=== PATIENT | male | born 1945 | race Caucasian/White ===

== ENCOUNTER → 2017-09-04 | Outpatient (CLI) | payer MEDICARE, OTHER ==
[2017-09-04 11:22] LABS: ALANINE AMINOTRANSFERASE 31 U/L (21-72); ALBUMIN 3.6 g/dL (3.5-5.0); ALKALINE PHOSPHATASE 90 U/L (38-126); ASPARTATE AMINO TRANSFERASE 22 U/L (17-59); BILIRUBIN,DIRECT 0.3 mg/dL (0.0-0.4); BILIRUBIN,TOTAL 0.6 mg/dL (0.2-1.3); TOTAL PROTEIN 5.9 g/dL (6.3-8.2)
== END ==
LOC: OD 09:33
PROVIDERS: ATTEND Specialist
DX: E78.4 Other hyperlipidemia (principal); I25.10 Atherosclerotic heart disease of native coronary artery without angina pectoris; I45.19 Other right bundle-branch block; I12.9 Hypertensive chronic kidney disease with stage 1 through stage 4 chronic kidney disease, or unspecified chronic kidney disease; J44.9 Chronic obstructive pulmonary disease, unspecified; N18.3 Chronic kidney disease, stage 3 (moderate); R94.31 Abnormal electrocardiogram [ECG] [EKG]; Z95.1 Presence of aortocoronary bypass graft; Z79.899 Other long term (current) drug therapy
CPT/HCPCS: 36415; 80076; 83036

== ENCOUNTER → 2017-09-09 | Outpatient (CLI) | payer MEDICARE, OTHER ==
[2017-09-09 12:05] LABS: CHOLESTEROL 147.07 mg/dL (0-200); TRIGLYCERIDES 102 mg/dL (<150)
[2017-09-09 12:15] LABS: DIRECT LDL 57 mg/dL (<100)
== END ==
LOC: OD 09:42
PROVIDERS: ATTEND Specialist
DX: E78.4 Other hyperlipidemia (principal); I12.9 Hypertensive chronic kidney disease with stage 1 through stage 4 chronic kidney disease, or unspecified chronic kidney disease; N18.3 Chronic kidney disease, stage 3 (moderate); E08.22 Diabetes mellitus due to underlying condition with diabetic chronic kidney disease; I25.10 Atherosclerotic heart disease of native coronary artery without angina pectoris; I45.19 Other right bundle-branch block; J44.9 Chronic obstructive pulmonary disease, unspecified; R94.31 Abnormal electrocardiogram [ECG] [EKG]; Z95.1 Presence of aortocoronary bypass graft; Z79.899 Other long term (current) drug therapy
CPT/HCPCS: 36415; 80061

== ENCOUNTER 2018-02-25 19:31 | Inpatient (IN) | payer MEDICARE, OTHER ==
[2018-02-25] MEDS ORDERED: NORMAL SALINE 1000 ML 1,000 ML IV ONE (20:33)
--- NOTE | 2018-02-25 20:36 | ER Document Report ---
ED Medical Screen (RME) - General Chief Complaint: High Blood Sugar Stated Complaint: ELEVATED BLOOD SUGAR Time Seen by Provider: 02/25/18 20:27 Notes: RAPID MEDICAL EVALUATION DISCLOSURE I have seen this patient as part of a Rapid Medical Evaluation and, if applicable, placed any initially appropriate orders. The patient will be seen and fully evaluated, including a full history and physical exam, by a provider ( in Main ED or Fast Track) when a room becomes available. 72-year-old male PMH HTN COPD diabetes sent here by his PCP for generalized weakness ongoing for the past 1 week. Patient has been feeling weak all over and lightheaded and states he has also been irritable. Patient denies any increased shortness of breath different from his baseline shortness of breath. He does not have any cough fevers chills vomiting diarrhea dysuria chest pain shortness of breath. His blood sugar today was found to be high 200s at home when the family decided to check his blood sugar "because what could it hurt". They deny he is a diabetic but do report that he takes Januvia prescribed by his PCP. He does not check his blood sugars daily. EXAM Diaphoretic CTAB RRR TRAVEL OUTSIDE OF THE [place] IN LAST 30 DAYS: No - Related Data Allergies/Adverse Reactions: Sulfa (Sulfonamide Antibiotics) Allergy (Verified 02/25/18 19:31) eye red Past Medical History - Social History Frequency of alcohol use: Rare - Past Medical History Cardiac Medical History: Reports: Hx Heart Attack - 1997, Hx Hypertension Pulmonary Medical History: Denies: Hx Asthma Neurological Medical History: Denies: Hx Cerebrovascular Accident, Hx Seizures Renal/ Medical History: Denies: Hx Peritoneal Dialysis GI Medical History: Denies: Hx Hepatitis, Hx Hiatal Hernia, Hx Ulcer Infectious Medical History: Denies: Hx Hepatitis Past Surgical History: Reports: Hx Open Heart Surgery. Denies: Hx Pacemaker Physical Exam - Vital signs Vitals: Temp Pulse Resp BP Pulse Ox 99.1 F 93 24 H 92/54 L 79 L 02/25/18 19:37 02/25/18 19:37 02/25/18 19:37 02/25/18 19:37 02/25/18 19:37 Course - Vital Signs Vital signs: Temp Pulse Resp BP Pulse Ox 99.1 F 86 24 H 92/54 L 97 02/25/18 19:37 02/25/18 19:43 02/25/18 19:37 02/25/18 19:37 02/25/18 19:43 Doctor's Discharge - Discharge Referrals: JACKLYN CERDA MD [Primary Care Provider] - Follow up as needed
[2018-02-25 20:59] LABS: ABSOLUTE EOSINOPHILS # (AUTO) 0.1 10^3/uL (0.0-0.6); ABSOLUTE LYMPHOCYTES (AUTO) 0.8 10^3/uL (0.5-4.7); ABSOLUTE MONOCYTES (AUTO) 0.4 10^3/uL (0.1-1.4); ABSOLUTE NEUT (AUTO) 3.4 10^3/uL (1.7-8.2); BASOPHILS % (AUTO) 0.4 % (0-2); EOSINOPHILS % (AUTO) 2.9 % (0-6); HEMATOCRIT 22.8 % (37.9-51.0); LYMPHOCYTES % (AUTO) 16.1 % (13-45); MEAN CORPUSCULAR HEMOGLOBIN 28.4 pg (27.0-33.4); MEAN CORPUSCULAR HGB CONC 32.2 g/dL (32.0-36.0); MEAN CORPUSCULAR VOLUME 88 fl (80-97); MONOCYTES % (AUTO) 7.7 % (3-13); PLATELET COUNT 177 10^3/uL (150-450); RED BLOOD COUNT 2.59 10^6/uL (4.35-5.55); RED CELL DISTRIBUTION WIDTH 17.6 % (11.5-14.0); SEGMENTED NEUTROPHILS % (AUTO) 72.9 % (42-78); TOTAL CELLS COUNTED % (AUTO) 100 %; WHITE BLOOD COUNT 4.7 10^3/uL (4.0-10.5)
[2018-02-25 21:03] LABS: ALANINE AMINOTRANSFERASE 35 U/L (21-72); ALBUMIN 3.3 g/dL (3.5-5.0); ALKALINE PHOSPHATASE 75 U/L (38-126); ASPARTATE AMINO TRANSFERASE 48 U/L (17-59); BILIRUBIN,DIRECT 0.4 mg/dL (0.0-0.4); BILIRUBIN,TOTAL 0.5 mg/dL (0.2-1.3); BLOOD UREA NITROGEN 35 mg/dL (7-20); CALCIUM 10.2 mg/dL (8.4-10.2); CHLORIDE 100 mmol/L (98-107); GLUCOSE 176 mg/dL (75-110); POTASSIUM 4.2 mmol/L (3.6-5.0); SODIUM 145.6 mmol/L (137-145); TOTAL PROTEIN 5.6 g/dL (6.3-8.2)
[2018-02-25 21:20] LABS: ANION GAP 5 (5-19)
[2018-02-25 21:24] LABS: CARBON DIOXIDE 41 mmol/L (22-30)
[2018-02-25 21:33] LABS: HEMOGLOBIN 7.3 g/dL (13.5-17.0)
[2018-02-25 21:34] LABS: VENOUS BLOOD BASE EXCESS 7.4 mmol/L; VENOUS BLOOD HCO3 36.7 mmol/L (20-32); VENOUS BLOOD PH 7.26 (7.30-7.42)
[2018-02-25 21:37] LABS: VENOUS BLOOD PCO2 82.8 mmHg (35-63)
--- NOTE | 2018-02-25 21:47 | RADIOLOGY REPORT (SQ) ---
EXAM DESCRIPTION: CHEST 2 VIEWS COMPLETED DATE/TIME: 02/25/2018 8:46 pm REASON FOR STUDY: eval pneumonia COMPARISON: 04/17/2013 EXAM PARAMETERS: NUMBER OF VIEWS: two views TECHNIQUE: Digital Frontal and Lateral radiographic views of the chest acquired. RADIATION DOSE: NA LIMITATIONS: none FINDINGS: LUNGS AND PLEURA: To pleural masses are present in the right upper hemithorax. Small righ t pleural effusion is present. The lungs are hyperexpanded. Chronic interstitial changes are presen t. MEDIASTINUM AND HILAR STRUCTURES: No masses or contour abnormalities. HEART AND VASCULAR STRUCTURES: Heart normal size. No evidence for failure. BONES: No bone erosion is seen in the upper right ribs. HARDWARE: Sternotomy wires. Surgical clips. Graft markers. OTHER: No other significant finding. IMPRESSION: Right upper hemithorax pleural masses. Small right pleural effusion. TECHNICAL DOCUMENTATION: JOB ID: [id number] [employer]- All Rights Reserved Reading location - IP/workstation name: [email or web address]
[2018-02-25] MEDS ORDERED: NORMAL SALINE 250 ML IV PRN ×2 (21:49)
--- NOTE | 2018-02-25 22:13 | ER Document Report ---
ED General - General Chief Complaint: High Blood Sugar Stated Complaint: ELEVATED BLOOD SUGAR Time Seen by Provider: 02/25/18 20:27 Notes: Patient is a 72-year-old male that comes emergency department for chief complaint of worsening weakness for the past week. He states he has intermittently worse shortness of breath than usual but at the moment he feels like it is at his baseline. He denies chest pain, dizziness, nausea or vomiting , fever or chills. He states he is eating and drinking normally. Past medical history includes COPD on 3 L nasal cannula at all times, hypertension, [place], type 2 diabetes, and left nephrectomy. He states he also takes iron. Denies blood in his stool. TRAVEL OUTSIDE OF THE [place] IN LAST 30 DAYS: No - Related Data Allergies/Adverse Reactions: Sulfa (Sulfonamide Antibiotics) Allergy (Verified 02/25/18 19:31) eye red Past Medical History - General Information source: Patient - Social History Smoking Status: Former Smoker Frequency of alcohol use: Rare Lives with: Family Family History: Reviewed & Not Pertinent Patient has suicidal ideation: No Patient has homicidal ideation: No - Past Medical History Cardiac Medical History: Reports: Hx Heart Attack - 1997, Hx Hypertension Pulmonary Medical History: Denies: Hx Asthma Neurological Medical History: Denies: Hx Cerebrovascular Accident, Hx Seizures Renal/ Medical History: Denies: Hx Peritoneal Dialysis GI Medical History: Denies: Hx Hepatitis, Hx Hiatal Hernia, Hx Ulcer Infectious Medical History: Denies: Hx Hepatitis Past Surgical History: Reports: Hx Open Heart Surgery. Denies: Hx Pacemaker Review of Systems - Review of Systems Constitutional: See HPI EENT: No symptoms reported Cardiovascular: No symptoms reported Respiratory: See HPI Gastrointestinal: No symptoms reported Genitourinary: No symptoms reported Male Genitourinary: No symptoms reported Musculoskeletal: No symptoms reported Skin: No symptoms reported Hematologic/Lymphatic: No symptoms reported Neurological/Psychological: No symptoms reported Physical Exam - Vital signs Vitals: Temp Pulse Resp BP Pulse Ox 99.1 F 93 24 H 92/54 L 79 L 02/25/18 19:37 02/25/18 19:37 02/25/18 19:37 02/25/18 19:37 02/25/18 19:37 - Notes Notes: GENERAL: Alert, interacts well. No acute distress. Frail in appearance. HEAD: Normocephalic, atraumatic. EYES: Pupils equal, round, and reactive to light. Extraocular movements intact. ENT: Oral mucosa moist, tongue midline. NECK: Full range of motion. Supple. Trachea midline. LUNGS: Decreased breath sounds bilaterally, no wheezes, rales, rhonchi noted. HEART: Regular rate and rhythm. No murmur ABDOMEN: Soft, non-tender. Non-distended. Bowel sounds present in all 4 quadrants. RECTAL: Black stools noted, no active bleeding, unremarkable rectal exam otherwise. EXTREMITIES: Moves all 4 extremities spontaneously. No edema, normal radial and dorsalis pedis pulses bilaterally. No cyanosis. BACK: no cervical, thoracic, lumbar midline tenderness. No saddle anesthesia, normal distal neurovascular exam. NEUROLOGICAL: Alert and oriented x3. Normal speech. [cranial nerves II through XII grossly intact]. PSYCH: Mildly irritable. SKIN: Skin is slightly pale. Course - Re-evaluation Re-evalutation: EKG sinus rhythm, multiple PACs, right bundle branch block, no T-wave inversions or ST segment changes in consecutive leads. Patient denying chest pain. He denies any current symptoms except for intermittent shortness of breath. Patient with mild tachypnea on my evaluation, decreased breath sounds bilaterally but is not in any severe respiratory distress. CBC shows low hemoglobin at 7.3. Previous hemoglobin was 11 although this was years ago. Performed rectal exam and this shows black stools, Hemoccult positive. Starting Protonix, type and screen performed, will transfuse. Venous blood gas shows hypercarbia which is significant with acidosis. Suspect this is because of patient's severe COPD and new anemia. Placed on BiPAP. Patient was anxious initially, provided with 0.5 mg of Ativan, after this he tolerated it well. No pneumonia on chest x-ray. No vascular congestion. Discussed with Dr. Strong. Spoke with patient and family, will discuss with hospitalist for admission. Spoke with Dr. Alonzo, internal medicine, recommended I speak to gastroenterology employment educational coord with plans to admit to ICU. 02/25/18 23:[address] Mai, he states that he will consult on the patient and see the patient in the morning. Spoke with Dr. Alonzo again, patient will be admitted to the ICU. - Vital Signs Vital signs: Temp Pulse Resp BP Pulse Ox 97.3 F 76 24 H 100/45 L 99 02/26/18 03:51 02/26/18 03:41 02/26/18 03:41 02/26/18 03:41 02/26/18 03:41 - Laboratory Result Diagrams: 02/26/18 05:35 02/26/18 05:35 Laboratory results interpreted by me: 02/25/18 02/25/18 02/25/18 20:25 20:30 20:30 RBC 2.59 L Hgb 7.3 L Hct 22.8 L RDW 17.6 H VBG pH VBG pCO2 VBG HCO3 Sodium 145.6 H Carbon Dioxide 41 H* BUN 35 H Creatinine 1.63 H Est GFR ( Amer) 50 L Est GFR (Non-Af Amer) 42 L Glucose 176 H POC Glucose 193 H Total Protein 5.6 L Albumin 3.3 L Urine Urobilinogen Crossmatch 02/25/18 02/25/18 02/25/18 21:20 21:50 22:43 RBC Hgb Hct RDW VBG pH 7.26 L VBG pCO2 82.8 H* VBG HCO3 36.7 H Sodium Carbon Dioxide BUN Creatinine Est GFR ( Amer) Est GFR (Non-Af Amer) Glucose POC Glucose Total Protein Albumin Urine Urobilinogen 4.0 H Crossmatch See Detail Critical Care Note - Critical Care Note Total time excluding time spent on procedures (mins): 35 - Symptomatic anemia, respiratory acidosis Comments: Critical care time spent obtaining history from patient, discussions with consultants, development of treatment plan with patient, evaluation of patient' s response to treatment, examination of patient, ordering and performing treatments and interventions, ordering and review of laboratory studies, re- evaluation of patient's condition, ordering and review of radiographic studies and review of old charts Discharge - Discharge Clinical Impression: Upper GI bleed, Symptomatic anemia, Shortness of breath, Acute respiratory failure with hypoxia and hypercarbia Condition: Serious Disposition: ADMITTED INPATIENT Admitting Provider: Hospitalist Unit Admitted: ICU
[2018-02-25] MEDS ORDERED: PANTOPRAZOLE SODIUM 40 MG VIAL IV ONE (22:31)
[2018-02-25] MEDS ORDERED: PANTOPRAZOLE SODIUM 40 MG VIAL IV PRN (22:32)
[2018-02-25] MEDS ORDERED: LORAZEPAM INJ 2 MG/1 ML VIAL IV ONE (22:36)
[2018-02-25] MEDS ORDERED: IPRATROPIUM/ALBUTEROL 0.5-2.5 MG/3 ML AMPUL NEB PRN (23:03)
[2018-02-25 23:05] LABS: APPEARANCE,URINE CLEAR; BILIRUBIN,URINE NEGATIVE (NEGATIVE); COLOR,URINE YELLOW; GLUCOSE, URINE NEGATIVE (NEGATIVE); KETONES,URINE NEGATIVE (NEGATIVE); LEUKOCYTE ESTERASE,URINE NEGATIVE (NEGATIVE); NITRITE,URINE NEGATIVE (NEGATIVE); PROTEIN,URINE NEGATIVE (NEGATIVE); URINE SPECIFIC GRAVITY 1.017
[2018-02-25] MEDS ORDERED: PHYTONADIONE INJ 10 MG/1 ML AMPULE SUBCUT ONE (23:05)
[2018-02-25 23:22] LABS: INTERNATIONAL RATION (INR) 0.94; PARTIAL THROMBOPLASTIN TIME 30.1 SEC (23.5-35.8)
[2018-02-25] MEDS: NORMAL SALINE 100 ML with PANTOPRAZOLE SODIUM 80 MG IV PRN ×2 (23:45)
[2018-02-26] MEDS: IPRATROPIUM/ALBUTEROL 0.5-2.5 MG/3 ML AMPUL NEB SCH ×4 (01:53→21:23)
[2018-02-26 05:46] LABS: ABSOLUTE EOSINOPHILS # (AUTO) 0.2 10^3/uL (0.0-0.6); ABSOLUTE LYMPHOCYTES (AUTO) 0.8 10^3/uL (0.5-4.7); ABSOLUTE MONOCYTES (AUTO) 0.3 10^3/uL (0.1-1.4); ABSOLUTE NEUT (AUTO) 3.6 10^3/uL (1.7-8.2); ABSOLUTE RETICS # 0.055 10^6/uL (0.028-0.122); BASOPHILS % (AUTO) 0.5 % (0-2); EOSINOPHILS % (AUTO) 3.7 % (0-6); HEMOGLOBIN 8.3 g/dL (13.5-17.0); LYMPHOCYTES % (AUTO) 16.3 % (13-45); MEAN CORPUSCULAR HGB CONC 33.4 g/dL (32.0-36.0); MEAN CORPUSCULAR VOLUME 87 fl (80-97); PLATELET COUNT 150 10^3/uL (150-450); RED BLOOD COUNT 2.87 10^6/uL (4.35-5.55); RED CELL DISTRIBUTION WIDTH 16.5 % (11.5-14.0); RETICULOCYTE COUNT (AUTO) 1.92 % (0.66-2.85); SEGMENTED NEUTROPHILS % (AUTO) 72.5 % (42-78); TOTAL CELLS COUNTED % (AUTO) 100 %; WHITE BLOOD COUNT 4.9 10^3/uL (4.0-10.5)
[2018-02-26 05:55] LABS: BLOOD UREA NITROGEN 32 mg/dL (7-20); GLUCOSE 93 mg/dL (75-110); IRON(TIBC) 77.7 ug/dL (49-181); POTASSIUM 3.9 mmol/L (3.6-5.0)
[2018-02-26 06:01] LABS: ANION GAP 5 (5-19); CARBON DIOXIDE 39 mmol/L (22-30); CHLORIDE 103 mmol/L (98-107); SODIUM 146.7 mmol/L (137-145)
--- NOTE | 2018-02-26 06:07 | PDOC H&P ---
History of Present Illness Admission Date/PCP: 02/25/18 23:14 MICA MORALES MD Patient complains of: Fatigue History of Present Illness: SHARI MCKEON is a 72 year old male with a past medical history of coronary artery disease status post bypass graft in the , diabetes, hypertension, stage II chronic kidney disease, oxygen dependent COPD and dyslipidemia. Patient presents with 2 weeks of fatigue and uncontrolled hyperglycemia. In the emergency room is found to have new anemia with a hemoglobin of 7.3 and heme positive stools. He is started on IV Protonix, ordered 2 units of packed red blood cells, BiPAP and referred to the hospitalist for admission. He denies nausea or vomiting, abdominal pain, dark colored stools, previous episode or previous colonoscopy. Past Medical History Cardiac Medical History: Reports: Coronary Artery Disease, Myocardial Infarction - 1997, Hypertension Pulmonary Medical History: Reports: Chronic Obstructive Pulmonary Disease (COPD) Denies: Asthma Neurological Medical History: Denies: Seizures Renal/ Medical History: Reports: Chronic Kidney Disease, Other - Status post left nephrectomy GI Medical History: Denies: Hepatitis, Hiatal Hernia Hematology: Denies: Anemia, Sickle Cell Disease Past Surgical History Past Surgical History: Reports: Coronary Artery Bypass Graft Denies: Pacemaker Social History Smoking Status: Former Smoker Frequency of Alcohol Use: None Hx Recreational Drug Use: No Drugs: None Hx Prescription Drug Abuse: No - Advance Directive Resuscitation Status: Full Code Family History Family History: Other - Unknown Parental Family History Reviewed: Yes Children Family History Reviewed: Yes Sibling(s) Family History Reviewed.: Yes Medication/Allergy Home Medications: Amlodipine Besylate [Norvasc 2.5 mg Tablet] 2.5 mg PO DAILY 06/10/15 Aspirin [Aspirin EC] 81 mg PO DAILY 06/10/15 Atorvastatin Calcium [Lipitor 40 mg Tablet] 40 mg PO QHS 06/10/15 Brinzolamide [Azopt] 1 drop OP TID 06/10/15 Nitroglycerin [Nitrostat] 0.4 mg SL PRN PRN 06/10/15 Sitagliptin Phosphate [Januvia 50 mg Tablet] 100 mg PO DAILY 06/10/15 Travoprost (Benzalkonium) [Travatan 0.004% Eye Drop] 1 drop OP ASDIR PRN Valsartan [Diovan] 320 mg PO DAILY 06/10/15 Allergies/Adverse Reactions: Sulfa (Sulfonamide Antibiotics) Allergy (Verified 02/25/18 19:31) eye red Review of Systems Constitutional: PRESENT: as per HPI, anorexia, fatigue, weight loss. ABSENT: chills Eyes: ABSENT: visual disturbances Ears: ABSENT: hearing changes Cardiovascular: ABSENT: chest pain, dyspnea on exertion, edema, orthropnea, palpitations Respiratory: ABSENT: cough, hemoptysis Gastrointestinal: ABSENT: abdominal pain, constipation, diarrhea, hematemesis, hematochezia, nausea, vomiting Genitourinary: ABSENT: dysuria, hematuria Musculoskeletal: ABSENT: joint swelling Integumentary: ABSENT: rash, wounds Neurological: ABSENT: abnormal gait, abnormal speech, confusion, dizziness, focal weakness, syncope Psychiatric: ABSENT: anxiety, depression, homidical ideation, suicidal ideation Endocrine: ABSENT: cold intolerance, heat intolerance, polydipsia, polyuria Hematologic/Lymphatic: ABSENT: easy bleeding, easy bruising Physical Exam Vital Signs: Temp Pulse Resp BP Pulse Ox 97.3 F 76 24 H 100/45 L 99 02/26/18 03:51 02/26/18 03:41 02/26/18 03:41 02/26/18 03:41 02/26/18 03:41 Intake & Output 02/24/18 02/25/18 02/26/18 11:59 11:59 11:59 Intake Total 600 Output Total 0 Balance 600 Weight 85.6 kg General appearance: PRESENT: no acute distress, cooperative, mild distress, well -developed, well-nourished, other - Chronically ill-appearing with temporal wasting. ABSENT: disheveled Head exam: PRESENT: atraumatic, normocephalic Eye exam: PRESENT: conjunctiva pale, EOMI, PERRLA. ABSENT: scleral icterus Ear exam: PRESENT: normal external ear exam Mouth exam: PRESENT: moist, tongue midline Neck exam: ABSENT: carotid bruit, JVD, lymphadenopathy, thyromegaly Respiratory exam: PRESENT: clear to auscultation randa, crackles, prolonged expiratory phas, retraction, tachypnea. ABSENT: rales, rhonchi, wheezes Cardiovascular exam: PRESENT: RRR. ABSENT: diastolic murmur, rubs, systolic murmur Pulses: PRESENT: normal dorsalis pedis pul Vascular exam: PRESENT: normal capillary refill GI/Abdominal exam: PRESENT: normal bowel sounds, soft. ABSENT: distended, guarding, mass, organolmegaly, rebound, tenderness Rectal exam: PRESENT: deferred Extremities exam: PRESENT: full ROM, +1 edema. ABSENT: calf tenderness, clubbing, pedal edema Musculoskeletal exam: PRESENT: full ROM. ABSENT: deformity, dislocation Neurological exam: PRESENT: alert, awake, oriented to person, oriented to place , oriented to time, oriented to situation, CN II-XII grossly intact. ABSENT: motor sensory deficit Psychiatric exam: PRESENT: appropriate affect, normal mood. ABSENT: homicidal ideation, suicidal ideation Skin exam: PRESENT: dry, intact, warm. ABSENT: cyanosis, rash Results Impressions: Chest X-Ray 02/25/18 20:32 IMPRESSION: Right upper hemithorax pleural masses. Small right pleural effusion. Assessment & Plan - Diagnosis (1) GI bleed Is this a current diagnosis for this admission?: Yes Plan: Unclear source history of iron deficiency, without colonoscopy suggests GI bleed. Pending evaluation empiric top of the inhibitor ordered, 2 units of packed red blood cells, follow-up CBC, INR and GI consult (2) Acute respiratory failure with hypoxia and hypercarbia Is this a current diagnosis for this admission?: Yes Plan: Acute on chronic respiratory failure exacerbated by anemia. Albuterol and Atrovent, supplemental oxygen and BiPAP support (3) Symptomatic anemia Is this a current diagnosis for this admission?: Yes Plan: Secondary to #1. 2 units of packed red blood cells ordered follow-up posttransfusion CBC - Time Time Spent: 50 to 70 Minutes - Inpatient Certification Medical Necessity: Need Close Monitoring Due to Risk of Patient Decompensation
--- NOTE | 2018-02-26 07:44 | PDOC CONSULTATION ---
Consultation Consult Date: 02/25/18 Attending physician:: KERWIN NAPOLES Consult reason:: GI bleed History of Present Illness Admission Date/PCP: 02/25/18 23:14 MICA MORALES MD History of Present Illness: SHARI MCKEON is a 72 year old male patient presented to the ED. I was called last pm. new onset anemia with heme positive stools patient does describe as dark denies any previous episodes does have to use BIPAP , denies any nausea or vomiting there is no dysphagia or odynophagia has elevated BUN and Creatinine patient in ICU, blood is being ordered patient once stabalized will need EGD to rule out source of bleeding denies any abdominal pain denies seeing any rectal bleeding Past Medical History Cardiac Medical History: Reports: Coronary Artery Disease, Myocardial Infarction - 1997, Hypertension Pulmonary Medical History: Reports: Chronic Obstructive Pulmonary Disease (COPD) Denies: Asthma Neurological Medical History: Denies: Seizures Renal/ Medical History: Reports: Chronic Kidney Disease, Other - Status post left nephrectomy GI Medical History: Denies: Hepatitis, Hiatal Hernia Hematology: Denies: Anemia, Sickle Cell Disease Past Surgical History Past Surgical History: Reports: Coronary Artery Bypass Graft Denies: Pacemaker Social History Lives with: Family Smoking Status: Former Smoker Frequency of Alcohol Use: None Hx Recreational Drug Use: No Drugs: None Hx Prescription Drug Abuse: No - Advance Directive Resuscitation Status: Full Code Family History Family History: Reviewed & Not Pertinent Parental Family History Reviewed: Yes Children Family History Reviewed: Unknown Sibling(s) Family History Reviewed.: Unknown Medication/Allergy Home Medications: Amlodipine Besylate [Norvasc 2.5 mg Tablet] 2.5 mg PO DAILY 06/10/15 Aspirin [Aspirin EC] 81 mg PO DAILY 06/10/15 Atorvastatin Calcium [Lipitor 40 mg Tablet] 40 mg PO QHS 06/10/15 Brinzolamide [Azopt] 1 drop OP TID 06/10/15 Nitroglycerin [Nitrostat] 0.4 mg SL PRN PRN 06/10/15 Sitagliptin Phosphate [Januvia 50 mg Tablet] 100 mg PO DAILY 06/10/15 Travoprost (Benzalkonium) [Travatan 0.004% Eye Drop] 1 drop OP ASDIR PRN Valsartan [Diovan] 320 mg PO DAILY 06/10/15 Allergies/Adverse Reactions: Sulfa (Sulfonamide Antibiotics) Allergy (Verified 02/25/18 19:31) eye red Review of Systems Constitutional: PRESENT: weakness. ABSENT: fever(s), headache(s), night sweats Eyes: ABSENT: visual disturbances Nose, Mouth, and Throat: ABSENT: mouth pain, sore throat Cardiovascular: ABSENT: chest pain, edema, orthropnea Respiratory: ABSENT: dyspnea, hemoptysis Gastrointestinal: ABSENT: dysphagia, hematemesis, nausea, vomiting Genitourinary: ABSENT: dysuria, hematuria Musculoskeletal: ABSENT: deformity Neurological: ABSENT: tremor(s), vertigo Endocrine: ABSENT: polydipsia, polyphagia, polyuria Hematologic/Lymphatic: ABSENT: easy bruising Physical Exam Vital Signs: Temp Pulse Resp BP Pulse Ox 97.3 F 76 12 96/45 L 97 02/26/18 03:51 02/26/18 03:41 02/26/18 06:35 02/26/18 06:31 02/26/18 06:35 Intake & Output 02/25/18 02/26/18 02/27/18 06:59 06:59 06:59 Intake Total 755 Output Total 200 Balance 555 Weight 85.6 kg General appearance: PRESENT: mild distress, well-developed, well-nourished Head exam: PRESENT: atraumatic, normocephalic Eye exam: PRESENT: EOMI, PERRLA. ABSENT: scleral icterus Mouth exam: PRESENT: moist, neck supple Throat exam: ABSENT: tonsillar exudate, tonsillogmegaly Neck exam: ABSENT: meningismus, tenderness, thyromegaly Respiratory exam: PRESENT: symmetrical, unlabored Cardiovascular exam: PRESENT: +S1, +S2 GI/Abdominal exam: PRESENT: soft. ABSENT: rebound, rigid Extremities exam: ABSENT: joint swelling Musculoskeletal exam: PRESENT: full ROM Neurological exam: PRESENT: alert, awake, oriented to time, oriented to situation, CN II-XII grossly intact Focused psych exam: ABSENT: restlessness Skin exam: PRESENT: normal color. ABSENT: mottled, pallor, petechiae, urticaria , vesicles Results Laboratory Results: 02/26/18 05:35 02/26/18 05:35 02/26/18 02/26/18 05:35 05:35 WBC 4.9 RBC 2.87 L Hgb 8.3 L Hct 25.0 L MCV 87 MCH 29.0 MCHC 33.4 RDW 16.5 H Plt Count 150 Seg Neutrophils % 72.5 Lymphocytes % 16.3 Monocytes % 7.0 Eosinophils % 3.7 Basophils % 0.5 Absolute Neutrophils 3.6 Absolute Lymphocytes 0.8 Absolute Monocytes 0.3 Absolute Eosinophils 0.2 Absolute Basophils 0.0 Retic Count (auto) 1.92 Absolute Retic 0.055 Sodium 146.7 H Potassium 3.9 Chloride 103 Carbon Dioxide 39 H Anion Gap 5 BUN 32 H Creatinine 1.51 H Est GFR ( Amer) 55 L Est GFR (Non-Af Amer) 45 L Glucose 93 Calcium 10.0 Iron 77.7 TIBC 252 % Saturation 31 Ferritin 41.20 Vitamin B12 235.0 L Folate 10.20 02/26/18 05:35 NT-Pro-B Natriuret Pep 231 Impressions: Chest X-Ray 02/25/18 20:32 IMPRESSION: Right upper hemithorax pleural masses. Small right pleural effusion. Assessment & Plan - Diagnosis (1) Upper GI bleed Is this a current diagnosis for this admission?: Yes Plan: agree with transfusion , patient admitted to the ICU continue on BIPAP will need EGD Risks, benefits and alternatives are explained to the patient in detail further recommendations to follow follow up on H/H transfuse as necessary start PPI
[2018-02-26] MEDS ORDERED: DIPHENHYDRAMINE HCL 50 MG/ML VIAL ONE (10:03)
[2018-02-26] MEDS ORDERED: NALOXONE HCL INJ/PF 0.4 MG/1 ML SDV ONE (10:03)
[2018-02-26] MEDS ORDERED: ONDANSETRON HCL INJ/PF 4 MG/2 ML SDV ONE (10:03)
[2018-02-26] MEDS ORDERED: MIDAZOLAM 2 MG/2 ML INJ ONE (10:04)
[2018-02-26] MEDS ORDERED: GLUCAGON,HUMAN RECOMB 1 MG INJ ONE (10:04)
[2018-02-26] MEDS ORDERED: EPINEPHRINE INJ 1 MG/10 ML DISP.SYRIN ONE (10:04)
[2018-02-26] MEDS ORDERED: FENTANYL CITRATE INJ/PF 100 MCG/2 ML AMPUL ONE (10:04)
[2018-02-26] MEDS ORDERED: FLUMAZENIL INJ 0.5 MG/5 ML VIAL ONE (10:04)
--- NOTE | 2018-02-26 10:30 | Progress Note ---
Provider Note Provider Note: Arrived at ICU to try and attempt procedure was informed by nursing that patient had desaturated when BIPAP was removed briefly . patient was sitting at side of bed and could not tolerate being off BIPAP at high risk for respiratory decompensation patient not intubated however since no clinical signs of active bleeding for now, will hold off on procedure he has received PRBC transfusion, and on PPI drip continue to monitor H/H will defer on EGD for now if H/H continues to decrease, then will need to be intubated for airway protection if for other reasons, he is intubated, then will perform EGD at that time. further recommendations to follow
[2018-02-26] MEDS: NORMAL SALINE 100 ML with PANTOPRAZOLE SODIUM 80 MG IV PRN ×2 (18:00)
--- NOTE | 2018-02-26 18:38 | PDOC PROGRESS REPORT ---
Subjective Progress Note for:: 02/26/18 Subjective:: No adverse events overnight. I asked him some of the details of what have been going on with him, but he was unable to provide me with much information and deferred to his . He got into a little bit of distress this morning we had put him on BiPAP for a while. Apparently when Dr. Mai tried to do the EGD he was unable to proceed because of the patient's respiratory condition. He seemed to do fine on BiPAP when he comes off he is not doing as well, while he is able to protect his airway just fine, his mental status is not back to its baseline according to his . Reason For Visit: GIB,COPD,ACUTE ON CHRONIC RESP FAILURE Physical Exam Vital Signs: Temp Pulse Resp BP Pulse Ox 98.6 F 78 14 100/52 L 98 02/26/18 18:00 02/26/18 18:00 02/26/18 18:00 02/26/18 18:00 02/26/18 18:00 Intake & Output 02/25/18 02/26/18 02/27/18 06:59 06:59 06:59 Intake Total 755 Output Total 200 435 Balance 555 -435 Weight 85.6 kg General appearance: PRESENT: disheveled, mild distress Head exam: PRESENT: atraumatic, normocephalic Respiratory exam: PRESENT: decreased breath sounds. ABSENT: rales, rhonchi, wheezes Cardiovascular exam: PRESENT: RRR. ABSENT: diastolic murmur, rubs, systolic murmur Vascular exam: PRESENT: normal capillary refill GI/Abdominal exam: PRESENT: normal bowel sounds, soft. ABSENT: distended, guarding, mass, organolmegaly, rebound, tenderness Extremities exam: ABSENT: clubbing, pedal edema Musculoskeletal exam: PRESENT: normal inspection. ABSENT: deformity Neurological exam: PRESENT: awake - Defers most questions to his , oriented to person, oriented to place Skin exam: PRESENT: dry, pallor, warm Results Laboratory Results: 02/26/18 05:35 02/26/18 05:35 02/26/18 02/26/18 05:35 05:35 WBC 4.9 RBC 2.87 L Hgb 8.3 L Hct 25.0 L MCV 87 MCH 29.0 MCHC 33.4 RDW 16.5 H Plt Count 150 Seg Neutrophils % 72.5 Lymphocytes % 16.3 Monocytes % 7.0 Eosinophils % 3.7 Basophils % 0.5 Absolute Neutrophils 3.6 Absolute Lymphocytes 0.8 Absolute Monocytes 0.3 Absolute Eosinophils 0.2 Absolute Basophils 0.0 Retic Count (auto) 1.92 Absolute Retic 0.055 Sodium 146.7 H Potassium 3.9 Chloride 103 Carbon Dioxide 39 H Anion Gap 5 BUN 32 H Creatinine 1.51 H Est GFR ( Amer) 55 L Est GFR (Non-Af Amer) 45 L Glucose 93 Calcium 10.0 Iron 77.7 TIBC 252 % Saturation 31 Ferritin 41.20 Vitamin B12 235.0 L Folate 10.20 02/26/18 05:35 NT-Pro-B Natriuret Pep 231 Impressions: Chest X-Ray 02/25/18 20:32 IMPRESSION: Right upper hemithorax pleural masses. Small right pleural effusion. Assessment & Plan - Diagnosis (1) Acute respiratory failure with hypoxia and hypercarbia Is this a current diagnosis for this admission?: Yes Plan: We will keep him on BiPAP as needed in an attempt to drive down his CO2. If he has a persistent hypoxemia will probably do a CT scan of his chest. (2) Upper GI bleed Is this a current diagnosis for this admission?: Yes Plan: Currently on Protonix drip and kept n.p.o. Gastroenterology has been consulted. They felt like it was not safe to the EGD at this time, and will come back and do the EGD when his respiratory status has improved. (3) Metabolic encephalopathy Is this a current diagnosis for this admission?: Yes Plan: Secondary to #1. As his CO2 goes down I expect this to improve. (4) Acute blood loss anemia Is this a current diagnosis for this admission?: Yes Plan: Status post 2 units packed red blood cells. We will continue to check his hemoglobin to see if he needs more blood. - Time Time Spent with patient: 35 or more minutes Total Critical Time (Minutes): 35 Medications reviewed and adjusted accordingly: Yes
[2018-02-27] MEDS: IPRATROPIUM/ALBUTEROL 0.5-2.5 MG/3 ML AMPUL NEB SCH ×4 (02:58→20:24)
[2018-02-27] MEDS: NORMAL SALINE 100 ML with PANTOPRAZOLE SODIUM 80 MG IV PRN ×2 (03:45)
[2018-02-27 06:59] LABS: ARTERIAL BLOOD BASE EXCESS 6.6 mmol/L; ARTERIAL BLOOD H2CO3 1.88 mmol/L (1.05-1.35); ARTERIAL BLOOD HCO3 33.6 mmol/L (20-26); ARTERIAL BLOOD O2 SATURATION 93.1 % (94-98); ARTERIAL BLOOD PCO2 62.5 mmHg (35-45); ARTERIAL BLOOD PH 7.35 (7.35-7.45); ARTERIAL BLOOD PO2 71.2 mmHg (80-100); ARTERIAL BLOOD TOTAL CO2 35.5 mmol/L (23-27)
[2018-02-27 07:01] LABS: ARTERIAL BLOOD FIO2 70%
[2018-02-27] MEDS ORDERED: PROPOFOL 1,000 MG/100 ML INFUS..BTL IV ONE (07:05)
[2018-02-27 07:35] LABS: ALANINE AMINOTRANSFERASE 47 U/L (21-72); ALBUMIN 3.3 g/dL (3.5-5.0); ALKALINE PHOSPHATASE 82 U/L (38-126); ANION GAP 9 (5-19); ASPARTATE AMINO TRANSFERASE 62 U/L (17-59); BILIRUBIN,DIRECT 0.5 mg/dL (0.0-0.4); BILIRUBIN,TOTAL 1.2 mg/dL (0.2-1.3); BLOOD UREA NITROGEN 23 mg/dL (7-20); CALCIUM 10.1 mg/dL (8.4-10.2); CARBON DIOXIDE 32 mmol/L (22-30); CHLORIDE 106 mmol/L (98-107); GLUCOSE 127 mg/dL (75-110); POTASSIUM 4.7 mmol/L (3.6-5.0); SODIUM 147.3 mmol/L (137-145); TOTAL PROTEIN 5.8 g/dL (6.3-8.2)
--- NOTE | 2018-02-27 07:49 | EKG REPORT ---
SEVERITY:- ABNORMAL ECG - SINUS RHYTHM MULTIPLE ATRIAL PREMATURE COMPLEXES FIRST DEGREE AV BLOCK RIGHT BUNDLE BRANCH BLOCK : Confirmed by: Sissy Sauer MD 27-Feb-2018 07:48:28
[2018-02-27 07:51] LABS: HEMATOCRIT 29.1 % (37.9-51.0); HEMOGLOBIN 9.5 g/dL (13.5-17.0); MEAN CORPUSCULAR HEMOGLOBIN 28.5 pg (27.0-33.4); MEAN CORPUSCULAR HGB CONC 32.6 g/dL (32.0-36.0); MEAN CORPUSCULAR VOLUME 88 fl (80-97); PLATELET COUNT 181 10^3/uL (150-450); RED BLOOD COUNT 3.33 10^6/uL (4.35-5.55); RED CELL DISTRIBUTION WIDTH 17.1 % (11.5-14.0); WHITE BLOOD COUNT 8.1 10^3/uL (4.0-10.5)
[2018-02-27] MEDS ORDERED: NOREPINEPHRINE BITARTRATE INJ/PF 4 MG/4 ML SDV IV ONE ×2 (07:57→18:39)
[2018-02-27] MEDS ORDERED: METHYLPREDNISOLONE INJ 125 MG/2 ML SDV IV ONE (08:00)
[2018-02-27 08:05] LABS: ABSOLUTE LYMPHOCYTES# (MANUAL) 1.5 10^3/uL (0.5-4.7); ABSOLUTE MONOCYTES # (MANUAL) 0.5 10^3/uL (0.1-1.4); ABSOLUTE NEUTROPHILS# (MANUAL) 6.1 10^3/uL (1.7-8.2); BAND NEUTROPHILS % (MANUAL) 1 % (3-5); BASOPHILS % (MANUAL) 0 % (0-2); EOSINOPHILS % (MANUAL) 1 % (0-6); LYMPHOCYTES % (MANUAL) 18 % (13-45); MONOCYTES % (MANUAL) 6 % (3-13); PLATELET COMMENT ADEQUATE; SEGMENTED NEUTROPHILS % (MAN) 74 % (42-78); TOTAL CELLS COUNTED 100; TOXIC GRANULATION SLIGHT; TOXIC VACUOLATION PRESENT
[2018-02-27 08:06] LABS: ANISOCYTOSIS 2+; OVALOCYTES 1+; POIKILOCYTOSIS 1+; POLYCHROMASIA 1+
--- NOTE | 2018-02-27 08:20 | RADIOLOGY REPORT (SQ) ---
EXAM DESCRIPTION: KUB/ABDOMEN (SINGLE VIEW) COMPLETED DATE/TIME: 02/27/2018 7:50 am REASON FOR STUDY: Intubation NGT placement COMPARISON: Two-view chest 02/25/2018 AP chest 02/27/2018 NUMBER OF VIEWS: One view. TECHNIQUE: Supine radiographic image of the abdomen acquired for nasogastric tube placement. LIMITATIONS: None. FINDINGS: Nasogastric tube tip and side port in the stomach. Compared to chest films 02/25/2018, there is now a elevation of the right hemidiaphragm and increased fluid or consolidation along the right major fissure. Findings discussed with Dr. Montes. Old sternotomy for CABG. Aortic stent graft. Normal bowel gas pattern. Pelvis not included in the field of view IMPRESSION: Nasogastric tube tip and side port in the stomach TECHNICAL DOCUMENTATION: JOB ID: [id number] [employer]- All Rights Reserved Reading location - IP/workstation name: [email or web address]
--- NOTE | 2018-02-27 08:24 | RADIOLOGY REPORT (SQ) ---
EXAM DESCRIPTION: CHEST SINGLE VIEW COMPLETED DATE/TIME: 02/27/2018 7:50 am REASON FOR STUDY: Intubation COMPARISON: Two-view chest 04/17/2013 02/25/2018 two-view chest EXAM PARAMETERS: NUMBER OF VIEWS: One view. TECHNIQUE: Single frontal radiographic view of the chest acquired. RADIATION DOSE: NA LIMITATIONS: None. FINDINGS: LUNGS AND PLEURA: Prior opacification of the right hemithorax since 02/25/2018. There is i ncrease in right pleural effusion, and decrease in aeration of the right upper and middle lobe worris ome for collapse. Findings discussed with Dr. Montes in the ICU. Left lung well inflated and clear. No left pleural effusion. No right or left pneumothorax. MEDIASTINUM AND HILAR STRUCTURES: No masses. Contour normal. HEART AND VASCULAR STRUCTURES: Post CABG. No gross cardiomegaly BONES: No acute findings. HARDWARE: Endotracheal tube tip midtrachea. Nasogastric tube tip and side port below the hemidiaphra gms. OTHER: No other significant finding. IMPRESSION: Further opacification right hemithorax compared to 02/25/2018. This is likely due to a c ombination of increasing right pleural fluid and lung collapse/consolidation. Findings discussed wit red Montes TECHNICAL DOCUMENTATION: JOB ID: [id number] [employer]- All Rights Reserved Reading location - IP/workstation name: [email or web address]
[2018-02-27 08:51] LABS: ARTERIAL BLOOD BASE EXCESS 6.9 mmol/L; ARTERIAL BLOOD H2CO3 1.88 mmol/L (1.05-1.35); ARTERIAL BLOOD HCO3 33.6 mmol/L (20-26); ARTERIAL BLOOD O2 SATURATION 97.7 % (94-98); ARTERIAL BLOOD PCO2 62.6 mmHg (35-45); ARTERIAL BLOOD PH 7.35 (7.35-7.45); ARTERIAL BLOOD TOTAL CO2 35.6 mmol/L (23-27)
[2018-02-27 08:54] LABS: ARTERIAL BLOOD FIO2 60%
[2018-02-27] MEDS: CYANOCOBALAMIN (VITAMIN B-12) INJ 1000 MCG/1 ML VIAL IM SCH (09:19)
[2018-02-27] MEDS ORDERED: MIDAZOLAM HCL 50 MG/100 ML RTUINJ ONE (09:21)
[2018-02-27] MEDS ORDERED: LIDOCAINE 1% INJ-PF (10 MG/ML) 30 ML SDV ONE (11:25)
--- NOTE | 2018-02-27 13:10 | RADIOLOGY REPORT (SQ) ---
EXAM DESCRIPTION: CHEST SINGLE VIEW COMPLETED DATE/TIME: 02/27/2018 12:44 pm REASON FOR STUDY: s/p bronchoscopy COMPARISON: 02/27/2018 EXAM PARAMETERS: NUMBER OF VIEWS: One view. TECHNIQUE: Single frontal radiographic view of the chest acquired. RADIATION DOSE: NA LIMITATIONS: None. FINDINGS: LUNGS AND PLEURA: The previously described decrease in aeration of the right upper and mid dle lobes appear improved as compared to the previous study. Residual changes are identified. Right pleural effusion appears essentially unchanged. Pleural changes are again identified in the right h emithorax. The left lung remains clear and well expanded. No pneumothorax is seen. MEDIASTINUM AND HILAR STRUCTURES: No masses. Contour normal. HEART AND VASCULAR STRUCTURES: The configuration of the heart and mediastinal structures is unchanged . BONES: No acute findings. HARDWARE: Endotracheal tube is again identified with its tip the level of the thoracic inlet. NG tub e is seen in course to the abdomen. Patient is status post median sternotomy. OTHER: No other significant finding. IMPRESSION: Interval improvement in the aeration in the right upper and middle lobes as noted above. Right pleural effusion appears essentially unchanged. Other findings as noted above TECHNICAL DOCUMENTATION: JOB ID: [id number] [employer]- All Rights Reserved Reading location - IP/workstation name: [email or web address]
[2018-02-27 13:30] LABS: FLUID APPEARANCE TURBID; FLUID COLOR RED; FLUID SOURCE LUNG; FLUID TYPE BRONCHIAL WASH; FLUID VISCOSITY SLIGHTLY VISCOUS
[2018-02-27 14:15] LABS: CREATINE KINASE MB 0.92 ng/mL (<4.55); TROPONIN I 0.012 ng/mL
[2018-02-27] MEDS ORDERED: SUCCINYLCHOLINE CHLORIDE INJ 200 MG/10 ML VIAL ONE (14:41)
--- NOTE | 2018-02-27 14:48 | Operative Report ---
Operative Report DATE OF SURGERY: 02/27/18 Operative Report: The risks benefits and alternatives of the procedure explained to the patient in detail and informed consent is obtained .A GIF Olympus video scope was inserted into the patient's mouth and hypopharynx, the esophagus is identified intubated and insufflated, the scope was then advanced through the esophagus stomach and duodenum, retroflexion maneuver is done, the esophagus stomach and first and second portions of the duodenum examined PREOPERATIVE DIAGNOSIS: Possible GI bleeding, heme positive stool POSTOPERATIVE DIAGNOSIS: No bleeding also noted. Gastric polyp noted. However is unclear if this is created by the suction with some mild residual bleeding versus a polyp that was there prior to NG tube placement. Biopsies obtained. No blood noted in the upper GI tract. No ulcers. Normal esophagus without any varices OPERATION: EGD with biopsy SURGEON: KERWIN NAPOLES ANESTHESIA: LMAC TISSUE REMOVED OR ALTERED: As noted above. COMPLICATIONS: None. ESTIMATED BLOOD LOSS: None. INTRAOPERATIVE FINDINGS: As noted above. PROCEDURE: Patient tolerated procedure well. No immediate postprocedure complications are noted. Continue current care. Keep n.p.o. Remove NG tube. Keep on Protonix drip. Wait on bronchoscopy results. Negative for GI bleeding.
[2018-02-27] MEDS: PROPOFOL 1,000 MG/100 ML INFUS..BTL IV PRN (15:36)
[2018-02-27] MEDS: METHYLPREDNISOLONE INJ 40 MG/1 ML SDV IV SCH ×2 (15:38→21:34)
[2018-02-27] MEDS: MIDAZOLAM HCL 50 MG/100 ML RTUINJ IV PRN (15:38)
--- NOTE | 2018-02-27 18:16 | PDOC PROGRESS REPORT ---
Subjective Progress Note for:: 02/27/18 Subjective:: He was apparently doing well until about 6:00 this morning when he suddenly had dyspnea. They try to help him recover with BiPAP but the decision was made to ultimately intubate him. He has since been stable on the ventilator. He had an EGD earlier which apparently did not show an upper GI source of bleeding. He also had a bronchoscopy and a biopsy of the mass was done, and it was also thought that he was probably bleeding from this mass and swallowing it and that is why his Hemoccult was positive. Reason For Visit: GIB,COPD,ACUTE ON CHRONIC RESP FAILURE Physical Exam Vital Signs: Temp Pulse Resp BP Pulse Ox 99.3 F 74 16 109/60 98 02/27/18 14:30 02/27/18 14:37 02/27/18 14:37 02/27/18 14:37 02/27/18 17:05 Intake & Output 02/26/18 02/27/18 02/28/18 06:59 06:59 06:59 Intake Total 755 801 Output Total 200 860 235 Balance 555 -860 566 Weight 85.6 kg 83.2 kg 83.2 kg General appearance: PRESENT: other - He is sedated and intubated. He has a hinds and ashen appearance about him. Respiratory exam: PRESENT: other - Very diminished sounds on the right side. ABSENT: rales, rhonchi, wheezes Cardiovascular exam: PRESENT: RRR. ABSENT: diastolic murmur, rubs, systolic murmur Vascular exam: PRESENT: normal capillary refill GI/Abdominal exam: PRESENT: normal bowel sounds, soft. ABSENT: distended, guarding, mass, organolmegaly, rebound, tenderness Extremities exam: PRESENT: pedal edema, +2 edema - Bilateral lower extremities. ABSENT: clubbing Musculoskeletal exam: PRESENT: normal inspection. ABSENT: deformity Neurological exam: PRESENT: other - Sedated, intubated Results Laboratory Results: 02/27/18 07:07 02/27/18 07:07 02/27/18 02/27/18 02/27/18 06:53 07:07 07:07 WBC 8.1 RBC 3.33 L Hgb 9.5 L Hct 29.1 L MCV 88 MCH 28.5 MCHC 32.6 RDW 17.1 H Plt Count 181 Seg Neutrophils % Not Reportable Lymphocytes % Not Reportable Monocytes % Not Reportable Eosinophils % Not Reportable Basophils % Not Reportable Absolute Neutrophils Not Reportable Absolute Lymphocytes Not Reportable Absolute Monocytes Not Reportable Absolute Eosinophils Not Reportable Absolute Basophils Not Reportable Carbonic Acid 1.88 H HCO3/H2CO3 Ratio 17:1 ABG pH 7.35 ABG pCO2 62.5 H ABG pO2 71.2 L ABG HCO3 33.6 H ABG O2 Saturation 93.1 L ABG Base Excess 6.6 FiO2 70% Sodium 147.3 H Potassium 4.7 Chloride 106 Carbon Dioxide 32 H Anion Gap 9 BUN 23 H Creatinine 1.36 H Est GFR ( Amer) > 60 Est GFR (Non-Af Amer) 51 L Glucose 127 H Calcium 10.1 Magnesium 2.2 Total Bilirubin 1.2 AST 62 H ALT 47 Alkaline Phosphatase 82 Total Protein 5.8 L Albumin 3.3 L Fluid Type Fluid Source Fluid Color Fluid Appearance Fluid Viscosity Fluid WBC Fluid RBC 02/27/18 02/27/18 08:40 12:15 WBC RBC Hgb Hct MCV MCH MCHC RDW Plt Count Seg Neutrophils % Lymphocytes % Monocytes % Eosinophils % Basophils % Absolute Neutrophils Absolute Lymphocytes Absolute Monocytes Absolute Eosinophils Absolute Basophils Carbonic Acid 1.88 H HCO3/H2CO3 Ratio 17:1 ABG pH 7.35 ABG pCO2 62.6 H ABG pO2 111.0 H ABG HCO3 33.6 H ABG O2 Saturation 97.7 ABG Base Excess 6.9 FiO2 60% Sodium Potassium Chloride Carbon Dioxide Anion Gap BUN Creatinine Est GFR ( Amer) Est GFR (Non-Af Amer) Glucose Calcium Magnesium Total Bilirubin AST ALT Alkaline Phosphatase Total Protein Albumin Fluid Type BRONCHIAL WASH Fluid Source LUNG Fluid Color RED Fluid Appearance TURBID Fluid Viscosity SLIGHTLY VISCOUS Fluid WBC 345 Fluid RBC [id number] 02/26/18 02/27/18 02/27/18 05:35 13:10 13:10 Creatine Kinase 51 L CK-MB (CK-2) 0.92 Troponin I 0.012 NT-Pro-B Natriuret Pep 231 Impressions: KUB X-Ray 02/27/18 00:00 IMPRESSION: Nasogastric tube tip and side port in the stomach Chest X-Ray 02/27/18 07:29 IMPRESSION: Further opacification right hemithorax compared to 02/25/2018. This is likely due to a combination of increasing right pleural fluid and lung collapse/consolidation. Findings discussed with Dr. Montes Assessment & Plan - Diagnosis (1) Acute respiratory failure with hypoxia and hypercarbia Is this a current diagnosis for this admission?: Yes Plan: He is now intubated. Blood gases have improved. Pulmonology been consulted. Steroids were started empirically. Given his oxygen dependent COPD and large mass on the right side, we may have a very hard time getting him extubated. (2) Upper GI bleed Is this a current diagnosis for this admission?: Yes Plan: This is been ruled out after the endoscopy today. (3) Metabolic encephalopathy Is this a current diagnosis for this admission?: Yes Plan: Due to his various medical issues. Unable to determine if this is improved because now he sedated and intubated. (4) Acute blood loss anemia Is this a current diagnosis for this admission?: Yes Plan: Currently stable, thought to be due to bleeding from the large mass in the right side of his chest. (5) Lung cancer Qualifiers: Lung location: overlapping sites Is this a current diagnosis for this admission?: Yes Plan: Assistant Counsel been consulted and he had a bronchoscopy today. Specimen has been sent for pathology. On chest x-ray it showing that the mass is causing collapse of the entire right lung. - Time Time Spent with patient: 35 or more minutes Total Critical Time (Minutes): 35 Medications reviewed and adjusted accordingly: Yes
[2018-02-27] MEDS: DEXTROSE 5%-WATER 250 ML with NOREPINEPHRINE BITARTRATE 4 MG IV PRN ×2 (18:30)
[2018-02-27 19:07] LABS: CREATINE KINASE MB 0.69 ng/mL (<4.55); TROPONIN I 0.012 ng/mL
[2018-02-27] MEDS ORDERED: PANTOPRAZOLE SODIUM 40 MG VIAL IV SCH (22:00)
[2018-02-27] MEDS ORDERED: ENOXAPARIN SODIUM INJ 40 MG/0.4 ML DISP.SYRIN SUBCUT ONE (22:00)
--- NOTE | 2018-02-28 00:25 | EKG REPORT ---
SEVERITY:- ABNORMAL ECG - SINUS RHYTHM RIGHT BUNDLE BRANCH BLOCK : Confirmed by: Sissy Sauer MD 28-Feb-2018 00:24:25
[2018-02-28] MEDS: IPRATROPIUM/ALBUTEROL 0.5-2.5 MG/3 ML AMPUL NEB SCH ×4 (01:02→20:52)
[2018-02-28] MEDS: PROPOFOL 1,000 MG/100 ML INFUS..BTL IV PRN ×3 (01:23→20:51)
[2018-02-28 01:37] LABS: CREATINE KINASE MB 0.61 ng/mL (<4.55)
[2018-02-28 01:42] LABS: TROPONIN I < 0.012 ng/mL
[2018-02-28 04:24] LABS: ABSOLUTE LYMPHOCYTES (AUTO) 0.6 10^3/uL (0.5-4.7); ABSOLUTE MONOCYTES (AUTO) 0.2 10^3/uL (0.1-1.4); ABSOLUTE NEUT (AUTO) 7.3 10^3/uL (1.7-8.2); HEMOGLOBIN 8.4 g/dL (13.5-17.0); LYMPHOCYTES % (AUTO) 6.9 % (13-45); MEAN CORPUSCULAR HEMOGLOBIN 29.2 pg (27.0-33.4); MEAN CORPUSCULAR HGB CONC 33.7 g/dL (32.0-36.0); MEAN CORPUSCULAR VOLUME 87 fl (80-97); MONOCYTES % (AUTO) 3.1 % (3-13); PLATELET COUNT 182 10^3/uL (150-450); RED BLOOD COUNT 2.89 10^6/uL (4.35-5.55); TOTAL CELLS COUNTED % (AUTO) 100 %; WHITE BLOOD COUNT 8.1 10^3/uL (4.0-10.5)
[2018-02-28 04:40] LABS: ALANINE AMINOTRANSFERASE 48 U/L (21-72); ALBUMIN 2.9 g/dL (3.5-5.0); ALKALINE PHOSPHATASE 81 U/L (38-126); ANION GAP 9 (5-19); ASPARTATE AMINO TRANSFERASE 48 U/L (17-59); BILIRUBIN,DIRECT 0.6 mg/dL (0.0-0.4); BILIRUBIN,TOTAL 0.9 mg/dL (0.2-1.3); BLOOD UREA NITROGEN 29 mg/dL (7-20); CALCIUM 9.4 mg/dL (8.4-10.2); CARBON DIOXIDE 29 mmol/L (22-30); CHLORIDE 108 mmol/L (98-107); GLUCOSE 155 mg/dL (75-110); SODIUM 146.2 mmol/L (137-145); TOTAL PROTEIN 5.1 g/dL (6.3-8.2)
[2018-02-28 05:03] LABS: POTASSIUM 3.3 mmol/L (3.6-5.0)
[2018-02-28 05:15] LABS: ARTERIAL BLOOD BASE EXCESS 4.3 mmol/L; ARTERIAL BLOOD H2CO3 1.21 mmol/L (1.05-1.35); ARTERIAL BLOOD HCO3 28.4 mmol/L (20-26); ARTERIAL BLOOD O2 SATURATION 98.7 % (94-98); ARTERIAL BLOOD PCO2 40.2 mmHg (35-45); ARTERIAL BLOOD PH 7.47 (7.35-7.45); ARTERIAL BLOOD TOTAL CO2 29.6 mmol/L (23-27)
[2018-02-28 05:29] LABS: ARTERIAL BLOOD FIO2 60%
[2018-02-28] MEDS: METHYLPREDNISOLONE INJ 40 MG/1 ML SDV IV SCH ×3 (05:57→22:40)
--- NOTE | 2018-02-28 06:30 | RADIOLOGY REPORT (SQ) ---
EXAM DESCRIPTION: XR CHEST 1 VIEW COMPLETED DATE/TME: 02/28/2018 06:00 CLINICAL HISTORY: resp failure, intubated patient. COMPARISON: 02/27/2018 FINDINGS: Single frontal view of the chest. Endotracheal tube with tip at the level of clavicles. Interval removal of NG tube. Cardiomediastinal silhouette is stable. Prior median sternotomy. No pneumothorax. Right basilar opacity and right pleural effusion are stable. Osseous structures are stable. Upper abdominal soft tissues are unremarkable. IMPRESSION: 1. Interval removal of NG tube. Otherwise stable appearance of the chest.
[2018-02-28] MEDS: CYANOCOBALAMIN (VITAMIN B-12) INJ 1000 MCG/1 ML VIAL IM SCH (09:42)
[2018-02-28] MEDS: PANTOPRAZOLE SODIUM 40 MG VIAL IV SCH (09:43)
[2018-02-28] MEDS ORDERED: ENOXAPARIN SODIUM INJ 40 MG/0.4 ML DISP.SYRIN SUBCUT SCH (10:00)
[2018-02-28] MEDS: POTASSI CL 20 MEQ/D5-1/2NS 1L 1,000 ML IV PRN ×2 (10:45→20:51)
--- NOTE | 2018-02-28 17:55 | PDOC CONSULTATION ---
Consultation Consult Date: 02/28/18 Consult reason:: Hematology Oncology consult was requested for new Lung cancer and anemia History of Present Illness Admission Date/PCP: 02/25/18 23:14 MICA MORALES MD History of Present Illness: SHARI MCKEON is a 72 year old male who is followed by Dr. Morales with a history of COPD, CAD, DM. His family state that he has a 4-6 week history of fatigue and irritability. Not wanting to do anything. He presented to the ED when his sugar was >250 and family became quite concerned. He has been using his oxygen more at home recently, but family state that patient is stubborn and has not indicated anything else is wrong. In the ED, he was found to be anemic with Heme positive stools and was started on Bi-PAP for acute respiratory failure. He was transfused 2 units pRBCs. He has since been intubated and undergone EGD and Bronch. Pathology shows squamous cell lung cancer. I do not yet see CT scans. Past Medical History Cardiac Medical History: Reports: Coronary Artery Disease, Myocardial Infarction - 1997, Hypertension Pulmonary Medical History: Reports: Chronic Obstructive Pulmonary Disease (COPD) Denies: Asthma EENT Medical History: Reports: Other - Glaucoma Neurological Medical History: Denies: Seizures Endocrine Medical History: Reports: Diabetes Mellitus Type 2 Renal/ Medical History: Reports: Chronic Kidney Disease, Other - Status post left nephrectomy GI Medical History: Denies: Hepatitis, Hiatal Hernia Hematology: Denies: Anemia, Sickle Cell Disease Past Surgical History Past Surgical History: Reports: Coronary Artery Bypass Graft, Other - Nephrectomy, AAA stent, Cataracts Denies: Pacemaker Social History Occupation: Retired [employer] Lives with: Family Smoking Status: Former Smoker Last Time Smoked: 2 years ago Frequency of Alcohol Use: None Hx Recreational Drug Use: No Drugs: None Hx Prescription Drug Abuse: No Past Social History Note: 4 kids, 1 Dog. - Advance Directive Resuscitation Status: Full Code Family History Parental Family History Reviewed: Yes - Mother recently Children Family History Reviewed: Yes - Breast Cancer Sibling(s) Family History Reviewed.: Yes - congenital heart disease Medication/Allergy Home Medications: Amlodipine Besylate [Norvasc 2.5 mg Tablet] 2.5 mg PO BID 06/10/15 Aspirin [Aspirin EC] 81 mg PO DAILY 06/10/15 Atorvastatin Calcium [Lipitor 40 mg Tablet] 40 mg PO QHS 06/10/15 Brinzolamide [Azopt] 2 drop OP BID 06/10/15 Nitroglycerin [Nitrostat] 0.4 mg SL PRN PRN 06/10/15 Travoprost (Benzalkonium) [Travatan 0.004% Eye Drop] 1 drop OP DAILYP PRN Cholecalciferol (Vitamin D3) [Vitamin D3 1000 Unit Tablet] 1,000 unit PO DAILY 02/26/18 Ferrous Sulfate 325 mg PO DAILY 02/26/18 Niacin (Inositol Niacinate) [Niacin 500 Mg Capsule] 500 mg PO DAILY 02/26/18 Sitagliptin Phosphate [Januvia] 100 mg PO DAILY 02/26/18 Valsartan/Hydrochlorothiazide [Diovan Hct 320-25 mg Tablet] 1 each PO DAILY Allergies/Adverse Reactions: Sulfa (Sulfonamide Antibiotics) Allergy (Verified 02/26/18 10:39) EYE REDNESS, EYE SWELLING Review of Systems ROS unobtainable: Due to endotracheal tube Physical Exam Vital Signs: Temp Pulse Resp BP Pulse Ox 98.1 F 55 L 16 114/55 L 98 02/28/18 16:00 02/28/18 14:59 02/28/18 14:59 02/28/18 14:48 02/28/18 14:59 Intake & Output 02/27/18 02/28/18 03/01/18 06:59 06:59 06:59 Intake Total 1147 Output Total 860 485 420 Balance -860 662 -420 Weight 83.2 kg 88.3 kg General appearance: PRESENT: well-developed, well-nourished Exam: 72 year old male. Intubated in ICU. Family at bedside. Able to follow commands, but sleeps during most of exam. Head exam: PRESENT: atraumatic Eye exam: PRESENT: PERRLA Ear exam: PRESENT: normal external ear exam Mouth exam: PRESENT: moist, tongue midline, other - ET tube in place. Neck exam: ABSENT: lymphadenopathy, tenderness Respiratory exam: PRESENT: clear to auscultation randa, unlabored Cardiovascular exam: PRESENT: RRR. ABSENT: systolic murmur Pulses: PRESENT: normal dorsalis pedis pul GI/Abdominal exam: PRESENT: hypoactive bowel sounds, soft. ABSENT: tenderness Gentrourinary exam: PRESENT: other - Dempsey n place Extremities exam: PRESENT: other - CHARLIE hose. ABSENT: pedal edema Musculoskeletal exam: PRESENT: normal inspection Neurological exam: PRESENT: alert, other - Able to move all 4 extremities. Able to stick tongue out on command. Skin exam: PRESENT: pallor Results Laboratory Results: 02/28/18 03:58 02/28/18 03:58 02/28/18 02/28/18 02/28/18 03:58 03:58 05:00 WBC 8.1 RBC 2.89 L Hgb 8.4 L Hct 25.0 L MCV 87 MCH 29.2 MCHC 33.7 RDW 17.0 H Plt Count 182 Seg Neutrophils % 90.0 H Lymphocytes % 6.9 L Monocytes % 3.1 Eosinophils % 0.0 Basophils % 0.0 Absolute Neutrophils 7.3 Absolute Lymphocytes 0.6 Absolute Monocytes 0.2 Absolute Eosinophils 0.0 Absolute Basophils 0.0 Carbonic Acid 1.21 HCO3/H2CO3 Ratio 23:1 ABG pH 7.47 H ABG pCO2 40.2 ABG pO2 128.0 H ABG HCO3 28.4 H ABG O2 Saturation 98.7 H ABG Base Excess 4.3 FiO2 60% Sodium 146.2 H Potassium 3.3 L D Chloride 108 H Carbon Dioxide 29 Anion Gap 9 BUN 29 H Creatinine 1.39 H Est GFR ( Amer) > 60 Est GFR (Non-Af Amer) 50 L Glucose 155 H Calcium 9.4 Magnesium 2.2 Total Bilirubin 0.9 AST 48 ALT 48 Alkaline Phosphatase 81 Total Protein 5.1 L Albumin 2.9 L 02/26/18 02/27/18 02/27/18 05:35 13:10 13:10 Creatine Kinase 51 L CK-MB (CK-2) 0.92 Troponin I 0.012 NT-Pro-B Natriuret Pep 231 02/27/18 02/27/18 02/28/18 18:25 18:25 00:50 Creatine Kinase 51 L 50 L CK-MB (CK-2) 0.69 Troponin I 0.012 NT-Pro-B Natriuret Pep 02/28/18 00:50 Creatine Kinase CK-MB (CK-2) 0.61 Troponin I < 0.012 NT-Pro-B Natriuret Pep Impressions: KUB X-Ray 02/27/18 00:00 IMPRESSION: Nasogastric tube tip and side port in the stomach Chest X-Ray 02/28/18 06:00 IMPRESSION: 1. Interval removal of NG tube. Otherwise stable appearance of the chest. Status: Image reviewed by me Assessment & Plan - Diagnosis (1) Lung cancer Qualifiers: Laterality: right Lung location: upper lobe of lung Qualified Code(s): C34.11 - Malignant neoplasm of upper lobe, right bronchus or lung Is this a current diagnosis for this admission?: Yes Plan: I reviewed the pathology report with the family and a copy was given to them. I have explained that this does appear to be lung cancer. However, I am unsure what stage this is. I would prefer to have CT C/A/P for further staging. I will order. Consider PET/CT as outpatient, if possible. I will try to see if there is enough tissue for EGFR, ALK, ROS, PD-L1, etc. (2) Acute blood loss anemia Is this a current diagnosis for this admission?: Yes Plan: He has heme+stools, but EGD was negative for active bleeding. His HGB dropped again today. I will continue to check stools for blood and will hold Lovenox for now, until we are sure he is no longer bleeding. He also has iron deficiency and B12 deficiency. He has been given B12 injections. This should help in the near future. Continue transfusion for HGB<8 or hemodynamic symptoms. Consider IV iron as well, as he is unable to take PO. (3) Acute respiratory failure with hypoxia and hypercarbia Is this a current diagnosis for this admission?: Yes Plan: He remains on the Vent. Dr. Montes following. - Plan Summary Plan Summary: Thank you for this consultation. I will continue to follow him with you. Please feel free to call me with any concerns.
--- NOTE | 2018-02-28 18:30 | PDOC PROGRESS REPORT ---
Subjective Progress Note for:: 02/28/18 Subjective:: He remained sedated and intubated. He is on small dose of Levophed because he is a little bit dry and sedation is dropping his blood pressure little bit. He is not showing any signs of infection outwardly. Counts remain stable he has not had any other evidence of any bleeding. Reason For Visit: GIB,COPD,ACUTE ON CHRONIC RESP FAILURE Physical Exam Vital Signs: Temp Pulse Resp BP Pulse Ox 98.6 F 55 L 16 125/55 L 96 02/28/18 17:18 02/28/18 14:59 02/28/18 17:18 02/28/18 17:18 02/28/18 17:18 Intake & Output 02/27/18 02/28/18 03/01/18 06:59 06:59 06:59 Intake Total 1147 Output Total 860 485 420 Balance -860 662 -420 Weight 83.2 kg 88.3 kg General appearance: PRESENT: disheveled, other - He still a bit ashen, sedated, intubated Respiratory exam: PRESENT: other - He has diminished sounds on the right side of his chest which are more diminished than the sounds on his left. ABSENT: crackles, rhonchi, wheezes Cardiovascular exam: PRESENT: RRR - Occasional premature beats. ABSENT: diastolic murmur, rubs, systolic murmur Vascular exam: PRESENT: normal capillary refill GI/Abdominal exam: PRESENT: normal bowel sounds, soft. ABSENT: distended, guarding, mass, organolmegaly, rebound, tenderness Extremities exam: PRESENT: pedal edema, +1 edema. ABSENT: clubbing Musculoskeletal exam: PRESENT: normal inspection. ABSENT: deformity Neurological exam: PRESENT: other - Sedated, intubated Results Laboratory Results: 02/28/18 03:58 02/28/18 03:58 02/28/18 02/28/18 02/28/18 03:58 03:58 05:00 WBC 8.1 RBC 2.89 L Hgb 8.4 L Hct 25.0 L MCV 87 MCH 29.2 MCHC 33.7 RDW 17.0 H Plt Count 182 Seg Neutrophils % 90.0 H Lymphocytes % 6.9 L Monocytes % 3.1 Eosinophils % 0.0 Basophils % 0.0 Absolute Neutrophils 7.3 Absolute Lymphocytes 0.6 Absolute Monocytes 0.2 Absolute Eosinophils 0.0 Absolute Basophils 0.0 Carbonic Acid 1.21 HCO3/H2CO3 Ratio 23:1 ABG pH 7.47 H ABG pCO2 40.2 ABG pO2 128.0 H ABG HCO3 28.4 H ABG O2 Saturation 98.7 H ABG Base Excess 4.3 FiO2 60% Sodium 146.2 H Potassium 3.3 L D Chloride 108 H Carbon Dioxide 29 Anion Gap 9 BUN 29 H Creatinine 1.39 H Est GFR ( Amer) > 60 Est GFR (Non-Af Amer) 50 L Glucose 155 H Calcium 9.4 Magnesium 2.2 Total Bilirubin 0.9 AST 48 ALT 48 Alkaline Phosphatase 81 Total Protein 5.1 L Albumin 2.9 L 02/26/18 02/27/18 02/27/18 05:35 13:10 13:10 Creatine Kinase 51 L CK-MB (CK-2) 0.92 Troponin I 0.012 NT-Pro-B Natriuret Pep 231 02/27/18 02/27/18 02/28/18 18:25 18:25 00:50 Creatine Kinase 51 L 50 L CK-MB (CK-2) 0.69 Troponin I 0.012 NT-Pro-B Natriuret Pep 02/28/18 00:50 Creatine Kinase CK-MB (CK-2) 0.61 Troponin I < 0.012 NT-Pro-B Natriuret Pep Impressions: KUB X-Ray 02/27/18 00:00 IMPRESSION: Nasogastric tube tip and side port in the stomach Chest X-Ray 02/28/18 06:00 IMPRESSION: 1. Interval removal of NG tube. Otherwise stable appearance of the chest. Assessment & Plan - Diagnosis (1) Acute respiratory failure with hypoxia and hypercarbia Is this a current diagnosis for this admission?: Yes Plan: He is now intubated. Blood gases have improved. Pulmonology been consulted. Steroids were started empirically. Given his oxygen dependent COPD and large mass on the right side, we may have a very hard time getting him extubated. We will start to wean and pulmonary think it is reasonable to do so. (2) Upper GI bleed Is this a current diagnosis for this admission?: Yes Plan: This is been ruled out after the endoscopy. It looks like the lung mass was bleeding and he was swallowing the blood and that is why his Hemoccult turn positive. (3) Metabolic encephalopathy Is this a current diagnosis for this admission?: Yes Plan: Due to his various medical issues. Unable to determine if this is improved because now he sedated and intubated. (4) Acute blood loss anemia Is this a current diagnosis for this admission?: Yes Plan: Currently stable, thought to be due to bleeding from the large mass in the right side of his chest. 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 He will need further CT scans for staging. Oncology has been consulted. - Time Time Spent with patient: 35 or more minutes Total Critical Time (Minutes): 35 Medications reviewed and adjusted accordingly: Yes
[2018-02-28] MEDS: DEXTROSE 5%-WATER 250 ML with NOREPINEPHRINE BITARTRATE 4 MG IV PRN ×2 (19:19)
[2018-02-28] MEDS: MIDAZOLAM HCL 50 MG/100 ML RTUINJ IV PRN (20:51)
[2018-03-01] MEDS: IPRATROPIUM/ALBUTEROL 0.5-2.5 MG/3 ML AMPUL NEB SCH ×4 (02:01→20:14)
[2018-03-01 04:14] LABS: ABSOLUTE LYMPHOCYTES (AUTO) 0.6 10^3/uL (0.5-4.7); ABSOLUTE MONOCYTES (AUTO) 0.6 10^3/uL (0.1-1.4); ABSOLUTE NEUT (AUTO) 8.6 10^3/uL (1.7-8.2); BASOPHILS % (AUTO) 0.1 % (0-2); HEMATOCRIT 24.4 % (37.9-51.0); HEMOGLOBIN 8.2 g/dL (13.5-17.0); LYMPHOCYTES % (AUTO) 5.9 % (13-45); MEAN CORPUSCULAR HGB CONC 33.4 g/dL (32.0-36.0); MEAN CORPUSCULAR VOLUME 87 fl (80-97); MONOCYTES % (AUTO) 6.1 % (3-13); PLATELET COUNT 177 10^3/uL (150-450); RED BLOOD COUNT 2.82 10^6/uL (4.35-5.55); RED CELL DISTRIBUTION WIDTH 17.3 % (11.5-14.0); SEGMENTED NEUTROPHILS % (AUTO) 87.9 % (42-78); TOTAL CELLS COUNTED % (AUTO) 100 %; WHITE BLOOD COUNT 9.8 10^3/uL (4.0-10.5)
[2018-03-01 04:15] LABS: ALANINE AMINOTRANSFERASE 47 U/L (21-72); ALBUMIN 2.7 g/dL (3.5-5.0); ALKALINE PHOSPHATASE 68 U/L (38-126); ANION GAP 6 (5-19); ASPARTATE AMINO TRANSFERASE 41 U/L (17-59); BILIRUBIN,DIRECT 0.4 mg/dL (0.0-0.4); BILIRUBIN,TOTAL 0.7 mg/dL (0.2-1.3); BLOOD UREA NITROGEN 34 mg/dL (7-20); CALCIUM 9.1 mg/dL (8.4-10.2); CARBON DIOXIDE 29 mmol/L (22-30); CHLORIDE 109 mmol/L (98-107); GLUCOSE 152 mg/dL (75-110); POTASSIUM 3.4 mmol/L (3.6-5.0); SODIUM 144.1 mmol/L (137-145)
[2018-03-01 05:28] LABS: ARTERIAL BLOOD BASE EXCESS 3.8 mmol/L; ARTERIAL BLOOD H2CO3 1.28 mmol/L (1.05-1.35); ARTERIAL BLOOD HCO3 28.3 mmol/L (20-26); ARTERIAL BLOOD O2 SATURATION 87.3 % (94-98); ARTERIAL BLOOD PCO2 42.5 mmHg (35-45); ARTERIAL BLOOD PH 7.44 (7.35-7.45); ARTERIAL BLOOD PO2 50.9 mmHg (80-100); ARTERIAL BLOOD TOTAL CO2 29.6 mmol/L (23-27)
[2018-03-01 05:30] LABS: ARTERIAL BLOOD FIO2 35%
[2018-03-01] MEDS: METHYLPREDNISOLONE INJ 40 MG/1 ML SDV IV SCH ×3 (05:47→21:17)
[2018-03-01] MEDS: POTASSI CL 20 MEQ/D5-1/2NS 1L 1,000 ML IV PRN (07:15)
--- NOTE | 2018-03-01 08:45 | RADIOLOGY REPORT (SQ) ---
EXAM DESCRIPTION: CHEST SINGLE VIEW COMPLETED DATE/TIME: 03/01/2018 7:49 am REASON FOR STUDY: resp failure RUL mass COMPARISON: 02/27/2018, 02/28/2018 EXAM PARAMETERS: NUMBER OF VIEWS: One view. TECHNIQUE: Single frontal radiographic view of the chest acquired. RADIATION DOSE: NA LIMITATIONS: None. FINDINGS: LUNGS AND PLEURA: Further improved aeration of the right lung with residual small effusion . Left lung is stable. MEDIASTINUM AND HILAR STRUCTURES: No masses. Contour normal. HEART AND VASCULAR STRUCTURES: CABG hardware. BONES: No acute findings. HARDWARE: ETT in expected location. OTHER: No other significant finding. IMPRESSION: Improved aeration of the right lung. Residual right effusion. TECHNICAL DOCUMENTATION: JOB ID: [id number]- All Rights Reserved Reading location - IP/workstation name: [email or web address]
[2018-03-01] MEDS: PANTOPRAZOLE SODIUM 40 MG VIAL IV SCH (09:35)
[2018-03-01] MEDS: CYANOCOBALAMIN (VITAMIN B-12) INJ 1000 MCG/1 ML VIAL IM SCH (09:35)
[2018-03-01] MEDS: PROPOFOL 1,000 MG/100 ML INFUS..BTL IV PRN ×2 (09:36→21:18)
[2018-03-01] MEDS: POTASSIUM CHLORIDE 20 MEQ/50 ML RTU IV SCH ×2 (09:37→13:35)
--- NOTE | 2018-03-01 11:03 | RADIOLOGY REPORT (SQ) ---
EXAM DESCRIPTION: CT CHEST WITH; CT ABD/PELVIS WITH IV ONLY COMPLETED DATE/TIME: 03/01/2018 10:38 am REASON FOR STUDY: Lung cancer initial staging COMPARISON: Chest radiograph CONTRAST TYPE AND DOSE: 95 Isovue 370- low osmolar. RENAL FUNCTION: Creatinine 1.39 TECHNIQUE: CT scan of the chest performed using helical scanning technique with dynamic intravenous contrast injection. Images reviewed with lung, soft tissue and bone windows. Reconstructed coronal a nd sagittal MPR images reviewed. All images stored on PACS. CT scan of the abdomen and pelvis performed with intravenous and without oral contrastusing helical s juan technique with dynamic intravenous contrast injection. Images reviewed with lung, soft tissu e and bone windows. Reconstructed coronal and sagittal MPR images reviewed. Delayed images for eval uation of the urinary system also acquired and evaluated. All images stored on PACS. All CT scanners at this facility use dose modulation, iterative reconstruction, and/or weight based d osing when appropriate to reduce radiation dose to as low as reasonably achievable (ALARA). [facility]: Dose Right [facility]: CareDose [facility]: Dose Right [facility]: Teradose 4D [facility]: [employer] RADIATION DOSE: CT Rad equipment meets quality standard of care and radiation dose reduction techniq ues were employed. CTDIvol: 18.9 - 20.6 mGy. DLP: 2592 mGy-cm. . LIMITATIONS: None. FINDINGS: CHEST: LUNGS AND PLEURA: Large right pleural effusion. Compressive atelectasis of the right lung. Superior ly there is a nodular appearance of the pleural up with Hounsfield units 31. This suggests solid tis tierra, likely tumor in the pleural space. 1.5 cm mass in the left midzone. No left effusion. HILAR AND MEDIASTINAL STRUCTURES: 2.6 cm right hilar mass. 3.7 cm precarinal lymph node. 5 x 4 x 6 cm anterior mediastinal mass. Likely necrotic node. HEART AND VASCULAR STRUCTURES: No aneurysm or dissection. No central pulmonary emboli. No pericardi al effusion. HARDWARE: ETT. THYROID AND OTHER SOFT TISSUES: No masses. No adenopathy. BONES: No significant finding. OTHER: No other significant finding. ABDOMEN AND PELVIS: LIVER: Liver is heterogeneous with suggestion of poorly defined masses. SPLEEN: Normal size. No focal lesions. PANCREAS: No masses. No significant calcifications. No adjacent inflammation or peripancreatic fluid collections. Pancreatic duct not dilated. GALLBLADDER: Not identified. ADRENAL GLANDS: No significant masses or asymmetry. RIGHT KIDNEY AND URETER: No solid masses. No significant calcification. No hydronephrosis or hydroure ter. LEFT KIDNEY AND URETER: Presumed surgically absent. AORTA AND VESSELS: Aortic stent graft. RETROPERITONEUM: No retroperitoneal adenopathy, hemorrhage or masses. BOWEL AND PERITONEAL CAVITY: No masses or inflammatory changes. No free fluid or peritoneal masses. APPENDIX: Normal. ABDOMINAL WALL: No masses. No hernias. PELVIS: No mass or free fluid. Normal bladder. Dempsey catheter. BONES: No significant or acute findings. OTHER: No other significant finding. IMPRESSION: Right hilar mass with precarinal and anterior mediastinal masses suspicious for malignan cy. There is also nodular soft tissue pleural based in the upper lobe suspicious for tumor. Possibl e metastatic lesion in the left lung. Large effusion with marked compressive atelectasis of the right lung. Possible liver metastases. COMMENT: Consider ultrasound of the liver. TECHNICAL DOCUMENTATION: JOB ID: [id number] Quality ID # [id number]: Final reports with documentation of one or more dose reduction techniques (e.g., Au tomated exposure control, adjustment of the mA and/or kV according to patient size, use of iterative reconstruction technique) 2010 [employer] All Rights Reserved Reading location - IP/workstation name: [email or web address]
--- NOTE | 2018-03-01 14:58 | PDOC PROGRESS REPORT ---
Subjective Progress Note for:: 03/01/18 Subjective:: He remained sedated and intubated. His Levophed is off and he is holding up his pressure fairly well. Counts remain stable he has not had any other evidence of any bleeding. Reason For Visit: GIB,COPD,ACUTE ON CHRONIC RESP FAILURE Physical Exam Vital Signs: Temp Pulse Resp BP Pulse Ox 97.2 F 50 L 16 99/48 L 100 03/01/18 11:13 03/01/18 13:40 03/01/18 13:40 03/01/18 11:13 03/01/18 13:40 Intake & Output 02/28/18 03/01/18 03/02/18 06:59 06:59 06:59 Intake Total 1147 2548 Output Total 485 720 220 Balance 662 1828 -220 Weight 88.3 kg 89 kg General appearance: PRESENT: no acute distress - Sedated, intubated, disheveled , well-developed Respiratory exam: PRESENT: decreased breath sounds - He has diminished sounds on the right with rhonchi that seem to crescendo in pitch with each breath. The left side is just simply diminished., rhonchi. ABSENT: rales, wheezes Cardiovascular exam: PRESENT: RRR. ABSENT: diastolic murmur, rubs, systolic murmur Vascular exam: PRESENT: normal capillary refill GI/Abdominal exam: PRESENT: normal bowel sounds, soft. ABSENT: distended, guarding, mass, organolmegaly, rebound, tenderness Extremities exam: ABSENT: clubbing, pedal edema Neurological exam: PRESENT: other - Sedated, intubated Results Laboratory Results: 03/01/18 03:47 03/01/18 03:47 03/01/18 03/01/18 03/01/18 03:47 03:47 05:10 WBC 9.8 RBC 2.82 L Hgb 8.2 L Hct 24.4 L MCV 87 MCH 29.0 MCHC 33.4 RDW 17.3 H Plt Count 177 Seg Neutrophils % 87.9 H Lymphocytes % 5.9 L Monocytes % 6.1 Eosinophils % 0.0 Basophils % 0.1 Absolute Neutrophils 8.6 H Absolute Lymphocytes 0.6 Absolute Monocytes 0.6 Absolute Eosinophils 0.0 Absolute Basophils 0.0 Carbonic Acid 1.28 HCO3/H2CO3 Ratio 22:1 ABG pH 7.44 ABG pCO2 42.5 ABG pO2 50.9 L ABG HCO3 28.3 H ABG O2 Saturation 87.3 L ABG Base Excess 3.8 FiO2 35% Sodium 144.1 Potassium 3.4 L Chloride 109 H Carbon Dioxide 29 Anion Gap 6 BUN 34 H Creatinine 1.43 H Est GFR ( Amer) 58 L Est GFR (Non-Af Amer) 48 L Glucose 152 H Calcium 9.1 Magnesium 2.3 Total Bilirubin 0.7 AST 41 ALT 47 Alkaline Phosphatase 68 Total Protein 5.0 L Albumin 2.7 L 02/27/18 15:45 Dempsey Catheter Urine Culture - Final NO GROWTH 2 DAYS 02/26/18 02/27/18 02/27/18 05:35 13:10 13:10 Creatine Kinase 51 L CK-MB (CK-2) 0.92 Troponin I 0.012 NT-Pro-B Natriuret Pep 231 02/27/18 02/27/18 02/28/18 18:25 18:25 00:50 Creatine Kinase 51 L 50 L CK-MB (CK-2) 0.69 Troponin I 0.012 NT-Pro-B Natriuret Pep 02/28/18 00:50 Creatine Kinase CK-MB (CK-2) 0.61 Troponin I < 0.012 NT-Pro-B Natriuret Pep Impressions: KUB X-Ray 02/27/18 00:00 IMPRESSION: Nasogastric tube tip and side port in the stomach Abdomen/Pelvis CT 02/28/18 00:00 IMPRESSION: Right hilar mass with precarinal and anterior mediastinal masses suspicious for malignancy. There is also nodular soft tissue pleural based in the upper lobe suspicious for tumor. Possible metastatic lesion in the left lung. Large effusion with marked compressive atelectasis of the right lung. Possible liver metastases. Chest CT 02/28/18 00:00 IMPRESSION: Right hilar mass with precarinal and anterior mediastinal masses suspicious for malignancy. There is also nodular soft tissue pleural based in the upper lobe suspicious for tumor. Possible metastatic lesion in the left lung. Large effusion with marked compressive atelectasis of the right lung. Possible liver metastases. Chest X-Ray 03/01/18 06:00 IMPRESSION: Improved aeration of the right lung. Residual right effusion. Assessment & Plan - Diagnosis (1) Acute respiratory failure with hypoxia and hypercarbia Is this a current diagnosis for this admission?: Yes Plan: He is now intubated. Blood gases have improved. Pulmonology been consulted. Steroids were started empirically. Given his oxygen dependent COPD and large mass on the right side, we may have a very hard time getting him extubated. We will start to wean when pulmonary thinks it is reasonable to do so. (2) Metabolic encephalopathy Is this a current diagnosis for this admission?: Yes Plan: Due to his various medical issues. Unable to determine if this is improved because now he sedated and intubated. (3) Acute blood loss anemia Is this a current diagnosis for this admission?: Yes Plan: Currently stable, thought to be due to bleeding from the large mass in the right side of his chest. 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 He will need further CT scans for staging. Oncology has been consulted. - Time Time Spent with patient: 35 or more minutes Total Critical Time (Minutes): 35 Medications reviewed and adjusted accordingly: Yes
--- NOTE | 2018-03-01 16:22 | PDOC PROGRESS REPORT ---
Subjective Progress Note for:: 03/01/18 Subjective:: Patient remains intubated. and children at bedside. Nurses report no new issues. CT scan was performed this morning. Reason For Visit: GIB,COPD,ACUTE ON CHRONIC RESP FAILURE Physical Exam Vital Signs: Temp Pulse Resp BP Pulse Ox 98.1 F 50 L 14 106/45 L 99 03/01/18 15:20 03/01/18 13:40 03/01/18 15:20 03/01/18 15:13 03/01/18 15:20 Intake & Output 02/28/18 03/01/18 03/02/18 06:59 06:59 06:59 Intake Total 1147 2548 Output Total 485 720 280 Balance 662 1828 -280 Weight 88.3 kg 89 kg General appearance: PRESENT: no acute distress, well-nourished Head exam: PRESENT: normocephalic Respiratory exam: PRESENT: clear to auscultation randa, unlabored, other - remains intubated. Cardiovascular exam: PRESENT: RRR. ABSENT: systolic murmur Pulses: PRESENT: normal dorsalis pedis pul GI/Abdominal exam: PRESENT: soft. ABSENT: tenderness Gentrourinary exam: PRESENT: indwelling catheter Extremities exam: ABSENT: pedal edema Results Laboratory Results: 03/01/18 03:47 03/01/18 03:47 03/01/18 03/01/18 03/01/18 03:47 03:47 05:10 WBC 9.8 RBC 2.82 L Hgb 8.2 L Hct 24.4 L MCV 87 MCH 29.0 MCHC 33.4 RDW 17.3 H Plt Count 177 Seg Neutrophils % 87.9 H Lymphocytes % 5.9 L Monocytes % 6.1 Eosinophils % 0.0 Basophils % 0.1 Absolute Neutrophils 8.6 H Absolute Lymphocytes 0.6 Absolute Monocytes 0.6 Absolute Eosinophils 0.0 Absolute Basophils 0.0 Carbonic Acid 1.28 HCO3/H2CO3 Ratio 22:1 ABG pH 7.44 ABG pCO2 42.5 ABG pO2 50.9 L ABG HCO3 28.3 H ABG O2 Saturation 87.3 L ABG Base Excess 3.8 FiO2 35% Sodium 144.1 Potassium 3.4 L Chloride 109 H Carbon Dioxide 29 Anion Gap 6 BUN 34 H Creatinine 1.43 H Est GFR ( Amer) 58 L Est GFR (Non-Af Amer) 48 L Glucose 152 H Calcium 9.1 Magnesium 2.3 Total Bilirubin 0.7 AST 41 ALT 47 Alkaline Phosphatase 68 Total Protein 5.0 L Albumin 2.7 L 02/27/18 15:45 Dempsey Catheter Urine Culture - Final NO GROWTH 2 DAYS 02/26/18 02/27/18 02/27/18 05:35 13:10 13:10 Creatine Kinase 51 L CK-MB (CK-2) 0.92 Troponin I 0.012 NT-Pro-B Natriuret Pep 231 02/27/18 02/27/18 02/28/18 18:25 18:25 00:50 Creatine Kinase 51 L 50 L CK-MB (CK-2) 0.69 Troponin I 0.012 NT-Pro-B Natriuret Pep 02/28/18 00:50 Creatine Kinase CK-MB (CK-2) 0.61 Troponin I < 0.012 NT-Pro-B Natriuret Pep Impressions: KUB X-Ray 02/27/18 00:00 IMPRESSION: Nasogastric tube tip and side port in the stomach Abdomen/Pelvis CT 02/28/18 00:00 IMPRESSION: Right hilar mass with precarinal and anterior mediastinal masses suspicious for malignancy. There is also nodular soft tissue pleural based in the upper lobe suspicious for tumor. Possible metastatic lesion in the left lung. Large effusion with marked compressive atelectasis of the right lung. Possible liver metastases. Chest CT 02/28/18 00:00 IMPRESSION: Right hilar mass with precarinal and anterior mediastinal masses suspicious for malignancy. There is also nodular soft tissue pleural based in the upper lobe suspicious for tumor. Possible metastatic lesion in the left lung. Large effusion with marked compressive atelectasis of the right lung. Possible liver metastases. Chest X-Ray 03/01/18 06:00 IMPRESSION: Improved aeration of the right lung. Residual right effusion. Assessment & Plan - Diagnosis (1) Lung cancer Qualifiers: Laterality: right Lung location: upper lobe of lung Qualified Code(s): C34.11 - Malignant neoplasm of upper lobe, right bronchus or lung Is this a current diagnosis for this admission?: Yes Plan: I reviewed the CT scan results with the family and a copy was given to them. I have explained that it appears that this is a stage IV with most likely liver mets and possible malignant pleural effusion. US of the liver was recommended. I will order this. I suspect he will need thoracentesis. If so, then fluid should be sent for cytology. If the liver and the pleural fluid are both clear of malignancy, then I would recommend transfer to [facility] for possible mediastinoscopy for staging. However, if this is, as suspected metastatic, then palliative chemotherapy could be considered, or Hospice. I will continue to follow. I also spoke with patient's daughter by phone and discussed all of the above. (2) Acute blood loss anemia Is this a current diagnosis for this admission?: Yes Plan: HGB has stabilized. Continue to monitor and transfuse if needed. Continue B12 and consider further iron replacement. (3) Acute respiratory failure with hypoxia and hypercarbia Is this a current diagnosis for this admission?: Yes Plan: Remains on vent. Defer to Hospitalist and pulmonary. - Plan Summary Plan Summary: Please feel free to call me with any concerns.
--- NOTE | 2018-03-01 17:10 | RADIOLOGY REPORT (SQ) ---
EXAM DESCRIPTION: U/S ABDOMEN LIMITED W/O DOP COMPLETED DATE/TIME: 03/01/2018 4:27 pm REASON FOR STUDY: POSSIBLE METASTASIS TO THE LIVER RUQ ULTRASOUND COMPARISON: CT abdomen and pelvis 03/01/2018 TECHNIQUE: Dynamic and static grayscale images acquired of the abdomen and recorded on PACS. Additio nal selected color Doppler and spectral images recorded. LIMITATIONS: Body habitus. FINDINGS: PANCREAS: No masses. Visualized pancreatic duct normal caliber. LIVER: Diffusely nodular appearance. Normal size. LIVER VASCULATURE: Normal directional flow of the main portal vein and hepatic veins. GALLBLADDER: Surgically absent. ULTRASOUND-DETECTED RG'S SIGN: Not applicable. INTRAHEPATIC DUCTS AND COMMON DUCT: CBD and intrahepatic ducts normal caliber. No filling defects. RIGHT KIDNEY: Normal size. Normal echogenicity. No solid or suspicious masses. No hydronephrosis. No calcifications. PERITONEAL AND RIGHT PLEURAL SPACE: Perihepatic free fluid is demonstrated. OTHER: No other significant findings. IMPRESSION: Limited examination. Diffusely nodular appearance of the liver similar to that seen on comparison CT imaging. Given additional findings demonstrated on CT, favor metastatic neoplasm. TECHNICAL DOCUMENTATION: JOB ID: [id number]- All Rights Reserved Reading location - IP/workstation name: [email or web address]
--- NOTE | 2018-03-01 17:17 | PDOC CONSULTATION ---
Consultation Consult Date: 02/27/18 Attending physician:: ALVARO PORTILLO Consult reason:: Acute respiratory failure History of Present Illness Admission Date/PCP: 02/25/18 23:14 MICA MORALES MD History of Present Illness: SHARI MCKEON is a 72 year old male,O2 dependent COPD coronary artery disease presented to the emergency room with fatigue increasing weakness and irritability at the time of presentation was found to be anemic and hypoxemic and was placed on BiPAP he subsequently intubated he has smoked 1-1/2-2 packs a day for the last 60 years. Per family he has been exposed to large amounts of passive smoke as a child as well as an adult. As stated above patient is currently intubated and sedated. Past Medical History Cardiac Medical History: Reports: Coronary Artery Disease, Myocardial Infarction - 1997, Hypertension Pulmonary Medical History: Reports: Chronic Obstructive Pulmonary Disease (COPD) , Respiratory Failure Denies: Asthma Neurological Medical History: Denies: Seizures Renal/ Medical History: Reports: Chronic Kidney Disease, Other - Status post left nephrectomy Malignancy Medical History: Reports: Renal (Kidney) Cancer GI Medical History: Denies: Hepatitis, Hiatal Hernia Hematology: Denies: Anemia, Sickle Cell Disease Past Surgical History Past Surgical History: Reports: Coronary Artery Bypass Graft Denies: Pacemaker Social History Information Source: Relative, [facility] Records Lives with: Family Smoking Status: Former Smoker Passive smoke exposure as: Both Frequency of Alcohol Use: None Hx Recreational Drug Use: No Drugs: None Hx Prescription Drug Abuse: No Do you have pets?: No Have you had any respiratory illnesses as a child?: No Have you been exposed to any sick contacts recently?: No Have you travelled outside of [place] in the past 12 months?: No - Advance Directive Resuscitation Status: Full Code Family History Parental Family History Reviewed: No Children Family History Reviewed: No Sibling(s) Family History Reviewed.: No Medication/Allergy Home Medications: Amlodipine Besylate [Norvasc 2.5 mg Tablet] 2.5 mg PO BID 06/10/15 Aspirin [Aspirin EC] 81 mg PO DAILY 06/10/15 Atorvastatin Calcium [Lipitor 40 mg Tablet] 40 mg PO QHS 06/10/15 Brinzolamide [Azopt] 2 drop OP BID 06/10/15 Nitroglycerin [Nitrostat] 0.4 mg SL PRN PRN 06/10/15 Travoprost (Benzalkonium) [Travatan 0.004% Eye Drop] 1 drop OP DAILYP PRN Cholecalciferol (Vitamin D3) [Vitamin D3 1000 Unit Tablet] 1,000 unit PO DAILY 02/26/18 Ferrous Sulfate 325 mg PO DAILY 02/26/18 Niacin (Inositol Niacinate) [Niacin 500 Mg Capsule] 500 mg PO DAILY 02/26/18 Sitagliptin Phosphate [Januvia] 100 mg PO DAILY 02/26/18 Valsartan/Hydrochlorothiazide [Diovan Hct 320-25 mg Tablet] 1 each PO DAILY Allergies/Adverse Reactions: Sulfa (Sulfonamide Antibiotics) Allergy (Verified 02/26/18 10:39) EYE REDNESS, EYE SWELLING Review of Systems ROS unobtainable: Due to endotracheal tube Physical Exam Vital Signs: Temp Pulse Resp BP Pulse Ox 98.8 F 82 20 145/101 H 93 02/27/18 06:35 02/27/18 02:55 02/27/18 06:35 02/27/18 06:31 02/27/18 06:35 Intake & Output 02/26/18 02/27/18 02/28/18 06:59 06:59 06:59 Intake Total 755 Output Total 200 860 Balance 555 -860 Weight 85.6 kg 83.2 kg General appearance: PRESENT: no acute distress, well-developed. ABSENT: cooperative Head exam: PRESENT: atraumatic, normocephalic Eye exam: ABSENT: nystagmus, periorbital swelling, scleral icterus Mouth exam: PRESENT: dry mucosa, neck supple, tongue midline, other - ET tube in place Neck exam: ABSENT: carotid bruit, JVD, lymphadenopathy, thyromegaly, tracheal deviation, tracheostomy Respiratory exam: PRESENT: crackles, decreased breath sounds, prolonged expiratory phas, rhonchi, unlabored, wheezes. ABSENT: retraction, stridor Cardiovascular exam: PRESENT: RRR, +S1, +S2 Pulses: PRESENT: normal radial pulses GI/Abdominal exam: PRESENT: hypoactive bowel sounds, soft Gentrourinary exam: PRESENT: indwelling catheter Extremities exam: ABSENT: clubbing, joint swelling, pedal edema Musculoskeletal exam: ABSENT: deformity, dislocation Neurological exam: ABSENT: awake Skin exam: PRESENT: dry, warm Results Laboratory Results: 02/27/18 07:07 02/27/18 07:07 02/27/18 02/27/18 02/27/18 06:53 07:07 07:07 WBC 8.1 RBC 3.33 L Hgb 9.5 L Hct 29.1 L MCV 88 MCH 28.5 MCHC 32.6 RDW 17.1 H Plt Count 181 Seg Neutrophils % Not Reportable Lymphocytes % Not Reportable Monocytes % Not Reportable Eosinophils % Not Reportable Basophils % Not Reportable Absolute Neutrophils Not Reportable Absolute Lymphocytes Not Reportable Absolute Monocytes Not Reportable Absolute Eosinophils Not Reportable Absolute Basophils Not Reportable Carbonic Acid 1.88 H HCO3/H2CO3 Ratio 17:1 ABG pH 7.35 ABG pCO2 62.5 H ABG pO2 71.2 L ABG HCO3 33.6 H ABG O2 Saturation 93.1 L ABG Base Excess 6.6 FiO2 70% Sodium 147.3 H Potassium 4.7 Chloride 106 Carbon Dioxide 32 H Anion Gap 9 BUN 23 H Creatinine 1.36 H Est GFR ( Amer) > 60 Est GFR (Non-Af Amer) 51 L Glucose 127 H Calcium 10.1 Magnesium 2.2 Total Bilirubin 1.2 AST 62 H ALT 47 Alkaline Phosphatase 82 Total Protein 5.8 L Albumin 3.3 L 02/26/18 05:35 NT-Pro-B Natriuret Pep 231 Assessment & Plan - Diagnosis (1) COPD (chronic obstructive pulmonary disease) Is this a current diagnosis for this admission?: Yes Plan: Long-acting beta agonist/short acting beta agonist/long-acting muscarinic agent at this time will hold inhaled corticosteroids he reportedly has thick sputum will initiate Mucomyst (2) Acute blood loss anemia Is this a current diagnosis for this admission?: Yes Plan: Transfuse if you as you have done a workup for blood loss keep positive stools (3) Acute respiratory failure with hypoxia and hypercarbia Is this a current diagnosis for this admission?: Yes Plan: Minimal O2 supplementation with ventilation adequate to maintain a good pH - Time Total Critical Time (Minutes): 50
--- NOTE | 2018-03-01 17:20 | Operative Report ---
Operative Report DATE OF SURGERY: 02/27/18 Operative Report: Acute collapse of right upper lobe consent obtained from spouse patient parenterally abated and sedated using T size Olympus scope tracheobronchial tree was explored there is no splaying of the tavon there were no abnormalities of the left mainstem bronchus left upper lobe lingula or left lower lobe there was thick mucous cyst that was blood-tinged occluding the orifice of the right upper lobe there are no abnormalities of the right lower lobe they went were noted there was splaying and submucosal edema around the orifice of the right upper lobe lavage and transbronchial biopsies and needle biopsies were taken of the area in question and sent to the lab for appropriate cultures and studies patient tolerated procedure well is postprocedure SaO2 was 100% postprocedure chest x-ray did not reveal a pneumothorax PREOPERATIVE DIAGNOSIS: RUL collapse POSTOPERATIVE DIAGNOSIS: RUL mass OPERATION: Fiberoptic bronchoscopy with bronchoalveolar lavage transbronchial biopsy and Zhang needle biopsy SURGEON: PAULETTE HALL ANESTHESIA: GA TISSUE REMOVED OR ALTERED: lavage,fine needle biopsy;transbronchial biopsy COMPLICATIONS: none ESTIMATED BLOOD LOSS: 3cc
--- NOTE | 2018-03-01 17:25 | PDOC PROGRESS REPORT ---
Subjective Progress Note for:: 02/28/18 Subjective:: Intubated and sedated Reason For Visit: GIB,COPD,ACUTE ON CHRONIC RESP FAILURE Physical Exam Vital Signs: Temp Pulse Resp BP Pulse Ox 97.5 F 56 L 16 117/60 97 02/28/18 06:03 02/28/18 01:02 02/28/18 06:03 02/28/18 06:03 02/28/18 06:03 Intake & Output 02/27/18 02/28/18 03/01/18 06:59 06:59 06:59 Intake Total 1147 Output Total 860 485 Balance -860 662 Weight 83.2 kg 88.3 kg General appearance: PRESENT: no acute distress, disheveled, well-developed, well -nourished. ABSENT: cooperative Head exam: PRESENT: atraumatic, normocephalic Eye exam: PRESENT: conjunctiva pale. ABSENT: EOMI, nystagmus, periorbital swelling, scleral icterus Mouth exam: PRESENT: dry mucosa, tongue midline, other - ET tube in place Teeth exam: PRESENT: poor dentation Neck exam: ABSENT: carotid bruit, JVD, lymphadenopathy, thyromegaly, tracheal deviation, tracheostomy Respiratory exam: PRESENT: crackles, decreased breath sounds, rhonchi, unlabored , wheezes. ABSENT: prolonged expiratory phas, retraction, stridor Cardiovascular exam: PRESENT: RRR, +S1, +S2, tachycardia Pulses: PRESENT: normal radial pulses GI/Abdominal exam: PRESENT: hypoactive bowel sounds, soft Gentrourinary exam: PRESENT: indwelling catheter Extremities exam: ABSENT: clubbing, joint swelling, pedal edema Musculoskeletal exam: ABSENT: ambulatory, deformity, dislocation Neurological exam: ABSENT: awake Skin exam: PRESENT: dry, warm Results Laboratory Results: 02/28/18 03:58 02/28/18 03:58 02/27/18 02/27/18 02/27/18 07:07 08:40 12:15 WBC 8.1 RBC 3.33 L Hgb 9.5 L Hct 29.1 L MCV 88 MCH 28.5 MCHC 32.6 RDW 17.1 H Plt Count 181 Seg Neutrophils % Not Reportable Lymphocytes % Not Reportable Monocytes % Not Reportable Eosinophils % Not Reportable Basophils % Not Reportable Absolute Neutrophils Not Reportable Absolute Lymphocytes Not Reportable Absolute Monocytes Not Reportable Absolute Eosinophils Not Reportable Absolute Basophils Not Reportable Carbonic Acid 1.88 H HCO3/H2CO3 Ratio 17:1 ABG pH 7.35 ABG pCO2 62.6 H ABG pO2 111.0 H ABG HCO3 33.6 H ABG O2 Saturation 97.7 ABG Base Excess 6.9 FiO2 60% Sodium Potassium Chloride Carbon Dioxide Anion Gap BUN Creatinine Est GFR ( Amer) Est GFR (Non-Af Amer) Glucose Calcium Magnesium Total Bilirubin AST ALT Alkaline Phosphatase Total Protein Albumin Fluid Type BRONCHIAL WASH Fluid Source LUNG Fluid Color RED Fluid Appearance TURBID Fluid Viscosity SLIGHTLY VISCOUS Fluid WBC 345 Fluid RBC [id number] 02/28/18 02/28/18 02/28/18 03:58 03:58 05:00 WBC 8.1 RBC 2.89 L Hgb 8.4 L Hct 25.0 L MCV 87 MCH 29.2 MCHC 33.7 RDW 17.0 H Plt Count 182 Seg Neutrophils % 90.0 H Lymphocytes % 6.9 L Monocytes % 3.1 Eosinophils % 0.0 Basophils % 0.0 Absolute Neutrophils 7.3 Absolute Lymphocytes 0.6 Absolute Monocytes 0.2 Absolute Eosinophils 0.0 Absolute Basophils 0.0 Carbonic Acid 1.21 HCO3/H2CO3 Ratio 23:1 ABG pH 7.47 H ABG pCO2 40.2 ABG pO2 128.0 H ABG HCO3 28.4 H ABG O2 Saturation 98.7 H ABG Base Excess 4.3 FiO2 60% Sodium 146.2 H Potassium 3.3 L D Chloride 108 H Carbon Dioxide 29 Anion Gap 9 BUN 29 H Creatinine 1.39 H Est GFR ( Amer) > 60 Est GFR (Non-Af Amer) 50 L Glucose 155 H Calcium 9.4 Magnesium 2.2 Total Bilirubin 0.9 AST 48 ALT 48 Alkaline Phosphatase 81 Total Protein 5.1 L Albumin 2.9 L Fluid Type Fluid Source Fluid Color Fluid Appearance Fluid Viscosity Fluid WBC Fluid RBC 02/26/18 02/27/18 02/27/18 05:35 13:10 13:10 Creatine Kinase 51 L CK-MB (CK-2) 0.92 Troponin I 0.012 NT-Pro-B Natriuret Pep 231 02/27/18 02/27/18 02/28/18 18:25 18:25 00:50 Creatine Kinase 51 L 50 L CK-MB (CK-2) 0.69 Troponin I 0.012 NT-Pro-B Natriuret Pep 02/28/18 00:50 Creatine Kinase CK-MB (CK-2) 0.61 Troponin I < 0.012 NT-Pro-B Natriuret Pep Impressions: KUB X-Ray 02/27/18 00:00 IMPRESSION: Nasogastric tube tip and side port in the stomach Chest X-Ray 02/28/18 06:00 IMPRESSION: 1. Interval removal of NG tube. Otherwise stable appearance of the chest. Assessment & Plan - Diagnosis (1) Acute respiratory failure with hypoxia and hypercarbia Is this a current diagnosis for this admission?: Yes Plan: Arterial blood gas minute ventilation airway pressures tolerable at this time (2) COPD (chronic obstructive pulmonary disease) Is this a current diagnosis for this admission?: Yes Plan: Generic Name Dose Route Start Last Admin Trade Name Freq PRN Reason Stop Dose Admin Albuterol/Ipratropium 3 ml 02/25/18 23:03 Duoneb 3 Ml Ampul NEB 03/27/18 23:02 [id number] PRN SHORTNESS OF BREATH Albuterol/Ipratropium 3 ml 02/26/18 02:00 03/01/18 13:40 Duoneb 3 Ml Ampul NEB 03/28/18 01:59 3 ml RTQ6 JELANI - Time Total Critical Time (Minutes): 45
--- NOTE | 2018-03-01 17:30 | PDOC PROGRESS REPORT ---
Subjective Progress Note for:: 03/01/18 Subjective:: Intubated and sedated Reason For Visit: GIB,COPD,ACUTE ON CHRONIC RESP FAILURE Physical Exam Vital Signs: Temp Pulse Resp BP Pulse Ox 97.3 F 54 L 16 109/50 L 100 03/01/18 06:20 03/01/18 02:00 03/01/18 06:20 03/01/18 06:18 03/01/18 06:20 Intake & Output 02/28/18 03/01/18 03/02/18 06:59 06:59 06:59 Intake Total 1147 2548 Output Total 485 720 Balance 662 1828 Weight 88.3 kg 89 kg General appearance: PRESENT: no acute distress, disheveled, well-developed, well -nourished Head exam: PRESENT: atraumatic, normocephalic Eye exam: PRESENT: conjunctiva pale. ABSENT: EOMI, nystagmus, periorbital swelling, scleral icterus Mouth exam: PRESENT: dry mucosa, neck supple, tongue midline, other - ET tube in place Neck exam: ABSENT: carotid bruit, JVD, lymphadenopathy, thyromegaly, tracheal deviation, tracheostomy Respiratory exam: PRESENT: crackles, decreased breath sounds, prolonged expiratory phas, rhonchi, unlabored, wheezes. ABSENT: retraction, stridor Cardiovascular exam: PRESENT: RRR, +S1, +S2 Pulses: PRESENT: normal radial pulses GI/Abdominal exam: PRESENT: hypoactive bowel sounds, soft Gentrourinary exam: PRESENT: indwelling catheter Extremities exam: ABSENT: clubbing, joint swelling, pedal edema Neurological exam: ABSENT: awake Skin exam: PRESENT: dry, warm Results Laboratory Results: 03/01/18 03:47 03/01/18 03:47 03/01/18 03/01/18 03/01/18 03:47 03:47 05:10 WBC 9.8 RBC 2.82 L Hgb 8.2 L Hct 24.4 L MCV 87 MCH 29.0 MCHC 33.4 RDW 17.3 H Plt Count 177 Seg Neutrophils % 87.9 H Lymphocytes % 5.9 L Monocytes % 6.1 Eosinophils % 0.0 Basophils % 0.1 Absolute Neutrophils 8.6 H Absolute Lymphocytes 0.6 Absolute Monocytes 0.6 Absolute Eosinophils 0.0 Absolute Basophils 0.0 Carbonic Acid 1.28 HCO3/H2CO3 Ratio 22:1 ABG pH 7.44 ABG pCO2 42.5 ABG pO2 50.9 L ABG HCO3 28.3 H ABG O2 Saturation 87.3 L ABG Base Excess 3.8 FiO2 35% Sodium 144.1 Potassium 3.4 L Chloride 109 H Carbon Dioxide 29 Anion Gap 6 BUN 34 H Creatinine 1.43 H Est GFR ( Amer) 58 L Est GFR (Non-Af Amer) 48 L Glucose 152 H Calcium 9.1 Magnesium 2.3 Total Bilirubin 0.7 AST 41 ALT 47 Alkaline Phosphatase 68 Total Protein 5.0 L Albumin 2.7 L 02/26/18 02/27/18 02/27/18 05:35 13:10 13:10 Creatine Kinase 51 L CK-MB (CK-2) 0.92 Troponin I 0.012 NT-Pro-B Natriuret Pep 231 02/27/18 02/27/18 02/28/18 18:25 18:25 00:50 Creatine Kinase 51 L 50 L CK-MB (CK-2) 0.69 Troponin I 0.012 NT-Pro-B Natriuret Pep 02/28/18 00:50 Creatine Kinase CK-MB (CK-2) 0.61 Troponin I < 0.012 NT-Pro-B Natriuret Pep Impressions: KUB X-Ray 02/27/18 00:00 IMPRESSION: Nasogastric tube tip and side port in the stomach Assessment & Plan - Diagnosis (1) Non-small cell cancer of right lung Is this a current diagnosis for this admission?: Yes Plan: Dr Tello consulted (2) Acute respiratory failure with hypoxia and hypercarbia Is this a current diagnosis for this admission?: Yes Plan: Unchanged (3) COPD (chronic obstructive pulmonary disease) Is this a current diagnosis for this admission?: Yes Plan: Solu-Medrol has been added Generic Name Dose Route Start Last Admin Trade Name Freq PRN Reason Stop Dose Admin Albuterol/Ipratropium 3 ml 02/25/18 23:03 Duoneb 3 Ml Ampul NEB 03/27/18 23:02 [id number] PRN SHORTNESS OF BREATH Albuterol/Ipratropium 3 ml 02/26/18 02:00 03/01/18 13:40 Duoneb 3 Ml Ampul NEB 03/28/18 01:59 3 ml RTQ6 JELANI (4) GI bleed Is this a current diagnosis for this admission?: Yes Plan: Status post EGD questionable gastric polyp - Time Total Critical Time (Minutes): 50
[2018-03-01] MEDS: MIDAZOLAM HCL 50 MG/100 ML RTUINJ IV PRN (21:17)
[2018-03-02] MEDS: IPRATROPIUM/ALBUTEROL 0.5-2.5 MG/3 ML AMPUL NEB SCH ×4 (01:49→20:18)
[2018-03-02 04:02] LABS: ABSOLUTE LYMPHOCYTES (AUTO) 0.6 10^3/uL (0.5-4.7); ABSOLUTE MONOCYTES (AUTO) 0.5 10^3/uL (0.1-1.4); ABSOLUTE NEUT (AUTO) 7.2 10^3/uL (1.7-8.2); BASOPHILS % (AUTO) 0.1 % (0-2); HEMATOCRIT 26.7 % (37.9-51.0); HEMOGLOBIN 8.7 g/dL (13.5-17.0); LYMPHOCYTES % (AUTO) 7.1 % (13-45); MEAN CORPUSCULAR HEMOGLOBIN 28.3 pg (27.0-33.4); MEAN CORPUSCULAR HGB CONC 32.6 g/dL (32.0-36.0); MEAN CORPUSCULAR VOLUME 87 fl (80-97); MONOCYTES % (AUTO) 5.9 % (3-13); PLATELET COUNT 165 10^3/uL (150-450); RED BLOOD COUNT 3.07 10^6/uL (4.35-5.55); RED CELL DISTRIBUTION WIDTH 17.4 % (11.5-14.0); SEGMENTED NEUTROPHILS % (AUTO) 86.9 % (42-78); TOTAL CELLS COUNTED % (AUTO) 100 %; WHITE BLOOD COUNT 8.3 10^3/uL (4.0-10.5)
[2018-03-02 04:22] LABS: ANION GAP 5 (5-19); BLOOD UREA NITROGEN 34 mg/dL (7-20); CALCIUM 9.1 mg/dL (8.4-10.2); CARBON DIOXIDE 30 mmol/L (22-30); CHLORIDE 110 mmol/L (98-107); GLUCOSE 116 mg/dL (75-110); PHOSPHORUS 3.2 mg/dL (2.5-4.5); POTASSIUM 4.2 mmol/L (3.6-5.0); SODIUM 145.1 mmol/L (137-145)
[2018-03-02] MEDS: PROPOFOL 1,000 MG/100 ML INFUS..BTL IV PRN ×3 (06:22→19:51)
[2018-03-02] MEDS: METHYLPREDNISOLONE INJ 40 MG/1 ML SDV IV SCH ×3 (06:22→22:57)
[2018-03-02 06:37] LABS: ARTERIAL BLOOD BASE EXCESS 1.1 mmol/L; ARTERIAL BLOOD H2CO3 1.18 mmol/L (1.05-1.35); ARTERIAL BLOOD HCO3 25.4 mmol/L (20-26); ARTERIAL BLOOD O2 SATURATION 92.6 % (94-98); ARTERIAL BLOOD PCO2 39.3 mmHg (35-45); ARTERIAL BLOOD PH 7.43 (7.35-7.45); ARTERIAL BLOOD PO2 62.6 mmHg (80-100); ARTERIAL BLOOD TOTAL CO2 26.6 mmol/L (23-27)
[2018-03-02 06:41] LABS: ARTERIAL BLOOD FIO2 30%
--- NOTE | 2018-03-02 08:44 | RADIOLOGY REPORT (SQ) ---
EXAM DESCRIPTION: CHEST SINGLE VIEW COMPLETED DATE/TIME: 03/02/2018 6:30 am REASON FOR STUDY: resp failure COMPARISON: CT chest 03/01/2018 Multiple chest films from 02/25/2018 through 03/01/2018 EXAM PARAMETERS: NUMBER OF VIEWS: One view. TECHNIQUE: Single frontal radiographic view of the chest acquired. RADIATION DOSE: NA LIMITATIONS: None. FINDINGS: LUNGS AND PLEURA: Persistent small right pleural effusion. Persistent partial collapse ri ght lower lobe. Persistent pleural density over the right posterior upper chest worrisome for solid pleural nodule. This is projected over the posterior 4th and 5th right upper ribs. Left lung grossly clear. Left upper lobe nodule seen on CT 03/01/2018 is not well-visualized by plain film. No left pleural effusion. No right or left pneumothorax. MEDIASTINUM AND HILAR STRUCTURES: Anterior mediastinal mass seen ventral to the aorta and pulmonary a rtery on CT exam 03/01/2018 is not apparent by plain film. No gross hilar enlargement by plain film. HEART AND VASCULAR STRUCTURES: No cardiomegaly. Old sternotomy for CABG BONES: No acute findings. HARDWARE: Endotracheal tube tip 3 cm above the tavon. OTHER: No other significant finding. IMPRESSION: Persistent small right pleural effusion with partial collapse right lower lobe. Posterior right upper pleural nodule, left upper lobe lung nodule, mediastinal mass seen on chest CT 03/01/2018 are not well-visualized by plain film. TECHNICAL DOCUMENTATION: JOB ID: [id number] [employer] All Rights Reserved Reading location - IP/workstation name: [email or web address]
[2018-03-02] MEDS: DEXTROSE 5%-WATER 250 ML with NOREPINEPHRINE BITARTRATE 4 MG IV PRN ×2 (10:10)
[2018-03-02] MEDS: CYANOCOBALAMIN (VITAMIN B-12) INJ 1000 MCG/1 ML VIAL IM SCH (10:12)
[2018-03-02] MEDS: ENOXAPARIN SODIUM INJ 40 MG/0.4 ML DISP.SYRIN SUBCUT SCH (10:13)
[2018-03-02] MEDS: PANTOPRAZOLE SODIUM 40 MG VIAL IV SCH (10:13)
[2018-03-02] MEDS: POTASSI CL 20 MEQ/D5-1/2NS 1L 1,000 ML IV PRN (10:14)
--- NOTE | 2018-03-02 15:36 | PDOC PROGRESS REPORT ---
Subjective Progress Note for:: 03/02/18 Subjective:: Intubated and sedated Reason For Visit: GIB,COPD,ACUTE ON CHRONIC RESP FAILURE Physical Exam Vital Signs: Temp Pulse Resp BP Pulse Ox 97.3 F 45 L 18 121/47 L 98 03/02/18 06:25 03/02/18 01:50 03/02/18 06:25 03/02/18 06:15 03/02/18 06:25 Intake & Output 03/01/18 03/02/18 03/03/18 06:59 06:59 06:59 Intake Total 2548 1490 Output Total 720 920 Balance 1828 570 Weight 89 kg 90.7 kg General appearance: PRESENT: no acute distress, disheveled. ABSENT: cooperative Head exam: PRESENT: atraumatic, normocephalic Eye exam: PRESENT: conjunctiva pale. ABSENT: EOMI, nystagmus, periorbital swelling, scleral icterus Mouth exam: PRESENT: dry mucosa, neck supple, tongue midline, other - ET tube in place Neck exam: ABSENT: carotid bruit, JVD, lymphadenopathy, thyromegaly, tracheal deviation, tracheostomy Respiratory exam: PRESENT: crackles, decreased breath sounds, prolonged expiratory phas, rhonchi, unlabored, wheezes. ABSENT: retraction Cardiovascular exam: PRESENT: RRR, +S1, +S2 Pulses: PRESENT: normal radial pulses GI/Abdominal exam: PRESENT: diminished bowel sounds, soft Gentrourinary exam: PRESENT: indwelling catheter Extremities exam: ABSENT: clubbing, joint swelling Musculoskeletal exam: ABSENT: ambulatory, deformity, dislocation Neurological exam: ABSENT: awake Skin exam: PRESENT: dry, warm Results Laboratory Results: 03/02/18 03:52 03/02/18 03:52 03/02/18 03/02/18 03/02/18 03:52 03:52 06:05 WBC 8.3 RBC 3.07 L Hgb 8.7 L Hct 26.7 L MCV 87 MCH 28.3 MCHC 32.6 RDW 17.4 H Plt Count 165 Seg Neutrophils % 86.9 H Lymphocytes % 7.1 L Monocytes % 5.9 Eosinophils % 0.0 Basophils % 0.1 Absolute Neutrophils 7.2 Absolute Lymphocytes 0.6 Absolute Monocytes 0.5 Absolute Eosinophils 0.0 Absolute Basophils 0.0 Carbonic Acid 1.18 HCO3/H2CO3 Ratio 21:1 ABG pH 7.43 ABG pCO2 39.3 ABG pO2 62.6 L ABG HCO3 25.4 ABG O2 Saturation 92.6 L ABG Base Excess 1.1 FiO2 30% Sodium 145.1 H Potassium 4.2 Chloride 110 H Carbon Dioxide 30 Anion Gap 5 BUN 34 H Creatinine 1.40 H Est GFR ( Amer) > 60 Est GFR (Non-Af Amer) 50 L Glucose 116 H Calcium 9.1 Phosphorus 3.2 Magnesium 2.5 H 02/27/18 15:45 Dempsey Catheter Urine Culture - Final NO GROWTH 2 DAYS 02/26/18 02/27/18 02/27/18 05:35 13:10 13:10 Creatine Kinase 51 L CK-MB (CK-2) 0.92 Troponin I 0.012 NT-Pro-B Natriuret Pep 231 02/27/18 02/27/18 02/28/18 18:25 18:25 00:50 Creatine Kinase 51 L 50 L CK-MB (CK-2) 0.69 Troponin I 0.012 NT-Pro-B Natriuret Pep 02/28/18 00:50 Creatine Kinase CK-MB (CK-2) 0.61 Troponin I < 0.012 NT-Pro-B Natriuret Pep Impressions: KUB X-Ray 02/27/18 00:00 IMPRESSION: Nasogastric tube tip and side port in the stomach Abdomen/Pelvis CT 02/28/18 00:00 IMPRESSION: Right hilar mass with precarinal and anterior mediastinal masses suspicious for malignancy. There is also nodular soft tissue pleural based in the upper lobe suspicious for tumor. Possible metastatic lesion in the left lung. Large effusion with marked compressive atelectasis of the right lung. Possible liver metastases. Chest CT 02/28/18 00:00 IMPRESSION: Right hilar mass with precarinal and anterior mediastinal masses suspicious for malignancy. There is also nodular soft tissue pleural based in the upper lobe suspicious for tumor. Possible metastatic lesion in the left lung. Large effusion with marked compressive atelectasis of the right lung. Possible liver metastases. Abdomen Ultrasound 03/01/18 00:00 IMPRESSION: Limited examination. Diffusely nodular appearance of the liver similar to that seen on comparison CT imaging. Given additional findings demonstrated on CT, favor metastatic neoplasm. Assessment & Plan - Diagnosis (1) Non-small cell cancer of right lung Is this a current diagnosis for this admission?: Yes Plan: Probable metastatic disease CT of chest and abdomen (2) Acute respiratory failure with hypoxia and hypercarbia Is this a current diagnosis for this admission?: Yes Plan: 02/27/18 12:15 Gram Stain - Preliminary Bronchial Washings Bronchial Washings Culture - Preliminary Streptococcus Pneumoniae Normal Adrienne Absent 02/27/18 07:30 Gram Stain - Preliminary Tracheal Aspirate Sputum Culture - Preliminary Streptococcus Pneumoniae Normal Adrienne (3) COPD (chronic obstructive pulmonary disease) Is this a current diagnosis for this admission?: Yes Plan: Solu-Medrol has been added Generic Name Dose Route Start Last Admin Trade Name Freq PRN Reason Stop Dose Admin Albuterol/Ipratropium 3 ml 02/25/18 23:03 Duoneb 3 Ml Ampul NEB 03/27/18 23:02 [id number] PRN SHORTNESS OF BREATH Albuterol/Ipratropium 3 ml 02/26/18 02:00 03/01/18 13:40 Duoneb 3 Ml Ampul NEB 03/28/18 01:59 3 ml RTQ6 JELANI (4) GI bleed Is this a current diagnosis for this admission?: Yes Plan: Status post EGD Stable thus farp - Time Total Critical Time (Minutes): 40
--- NOTE | 2018-03-02 18:17 | PDOC PROGRESS REPORT ---
Subjective Progress Note for:: 03/02/18 Subjective:: No adverse events overnight. He remains sedated and intubated. The sedatives are making his blood pressures go low and he needed a little bit of support with Levophed. When he was intubated and tracheal aspirate was done and is growing Streptococcus pneumoniae. We are starting him empirically on some antibiotics until we get susceptibilities. He has had no real change in his clinical condition. He does wake up and answer questions by nodding yes or no when his sedation is lightened but his respiratory rate picks up and he does not tolerate being on the vent without sedation. Reason For Visit: GIB,COPD,ACUTE ON CHRONIC RESP FAILURE Physical Exam Vital Signs: Temp Pulse Resp BP Pulse Ox 98.2 F 58 L 9 L 108/50 L 94 03/02/18 15:20 03/02/18 14:05 03/02/18 15:20 03/02/18 15:14 03/02/18 16:58 Intake & Output 03/01/18 03/02/18 03/03/18 06:59 06:59 06:59 Intake Total 2548 1490 Output Total 720 920 445 Balance 1828 570 -445 Weight 89 kg 90.7 kg General appearance: PRESENT: other - Sedated, intubated Respiratory exam: PRESENT: decreased breath sounds - He has diminished sounds peripherally on the right side of his chest. Rhonchi and wheezes are heard more centrally on the right side., rhonchi - Right sided chest, wheezes - Right side of chest Cardiovascular exam: PRESENT: RRR. ABSENT: diastolic murmur, rubs, systolic murmur Vascular exam: PRESENT: normal capillary refill GI/Abdominal exam: PRESENT: ascites Extremities exam: ABSENT: clubbing, pedal edema Musculoskeletal exam: PRESENT: normal inspection. ABSENT: deformity Neurological exam: PRESENT: other - sedated, intubated Results Laboratory Results: 03/02/18 03:52 03/02/18 03:52 03/02/18 03/02/18 03/02/18 03:52 03:52 06:05 WBC 8.3 RBC 3.07 L Hgb 8.7 L Hct 26.7 L MCV 87 MCH 28.3 MCHC 32.6 RDW 17.4 H Plt Count 165 Seg Neutrophils % 86.9 H Lymphocytes % 7.1 L Monocytes % 5.9 Eosinophils % 0.0 Basophils % 0.1 Absolute Neutrophils 7.2 Absolute Lymphocytes 0.6 Absolute Monocytes 0.5 Absolute Eosinophils 0.0 Absolute Basophils 0.0 Carbonic Acid 1.18 HCO3/H2CO3 Ratio 21:1 ABG pH 7.43 ABG pCO2 39.3 ABG pO2 62.6 L ABG HCO3 25.4 ABG O2 Saturation 92.6 L ABG Base Excess 1.1 FiO2 30% Sodium 145.1 H Potassium 4.2 Chloride 110 H Carbon Dioxide 30 Anion Gap 5 BUN 34 H Creatinine 1.40 H Est GFR ( Amer) > 60 Est GFR (Non-Af Amer) 50 L Glucose 116 H Calcium 9.1 Phosphorus 3.2 Magnesium 2.5 H 02/27/18 12:15 Bronchial Washings Gram Stain - Final 02/27/18 12:15 Bronchial Washings Bronchial Washings Culture - Final Streptococcus Pneumoniae Normal Adrienne Absent 02/26/18 02/27/18 02/27/18 05:35 13:10 13:10 Creatine Kinase 51 L CK-MB (CK-2) 0.92 Troponin I 0.012 NT-Pro-B Natriuret Pep 231 02/27/18 02/27/18 02/28/18 18:25 18:25 00:50 Creatine Kinase 51 L 50 L CK-MB (CK-2) 0.69 Troponin I 0.012 NT-Pro-B Natriuret Pep 02/28/18 00:50 Creatine Kinase CK-MB (CK-2) 0.61 Troponin I < 0.012 NT-Pro-B Natriuret Pep Impressions: KUB X-Ray 02/27/18 00:00 IMPRESSION: Nasogastric tube tip and side port in the stomach Abdomen/Pelvis CT 02/28/18 00:00 IMPRESSION: Right hilar mass with precarinal and anterior mediastinal masses suspicious for malignancy. There is also nodular soft tissue pleural based in the upper lobe suspicious for tumor. Possible metastatic lesion in the left lung. Large effusion with marked compressive atelectasis of the right lung. Possible liver metastases. Chest CT 02/28/18 00:00 IMPRESSION: Right hilar mass with precarinal and anterior mediastinal masses suspicious for malignancy. There is also nodular soft tissue pleural based in the upper lobe suspicious for tumor. Possible metastatic lesion in the left lung. Large effusion with marked compressive atelectasis of the right lung. Possible liver metastases. Abdomen Ultrasound 03/01/18 00:00 IMPRESSION: Limited examination. Diffusely nodular appearance of the liver similar to that seen on comparison CT imaging. Given additional findings demonstrated on CT, favor metastatic neoplasm. Chest X-Ray 03/02/18 06:00 IMPRESSION: Persistent small right pleural effusion with partial collapse right lower lobe. Posterior right upper pleural nodule, left upper lobe lung nodule, mediastinal mass seen on chest CT 03/01/2018 are not well-visualized by plain film. Assessment & Plan - Diagnosis (1) Acute respiratory failure with hypoxia and hypercarbia Is this a current diagnosis for this admission?: Yes Plan: He is now intubated. Blood gases have improved. Pulmonology been consulted. Steroids were started empirically. Given his oxygen dependent COPD and large mass on the right side, we may have a very hard time getting him extubated. We will start to wean when pulmonary thinks it is reasonable to do so. (2) Metabolic encephalopathy Is this a current diagnosis for this admission?: Yes Plan: Due to his various medical issues. Unable to determine if this is improved because now he sedated and intubated. (3) Acute blood loss anemia Is this a current diagnosis for this admission?: Yes Plan: Currently stable, thought to be due to bleeding from the large mass in the right side of his chest. 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 CT scan of the chest abdomen and pelvis showed the tumor described in the chest along with a necrotic lymph node in the mediastinum, and it showed a nodular appearance of the liver. An ultrasound of the liver was done and it was positive for nodular appearance consistent with metastatic disease. Oncology has been consulted. - Time Time Spent with patient: 35 or more minutes Total Critical Time (Minutes): 35 Medications reviewed and adjusted accordingly: Yes
[2018-03-02] MEDS: PIPERACILLIN SODIUM/TAZOBACTAM 3.375 GM in NORMAL SALINE 100 ML IV SCH ×2 (18:29→23:38)
[2018-03-02] MEDS: MIDAZOLAM HCL 50 MG/100 ML RTUINJ IV PRN (22:57)
[2018-03-03] MEDS: IPRATROPIUM/ALBUTEROL 0.5-2.5 MG/3 ML AMPUL NEB SCH ×4 (01:51→19:28)
[2018-03-03 04:16] LABS: ALANINE AMINOTRANSFERASE 44 U/L (21-72); ALBUMIN 2.7 g/dL (3.5-5.0); ALKALINE PHOSPHATASE 80 U/L (38-126); ANION GAP 6 (5-19); ASPARTATE AMINO TRANSFERASE 41 U/L (17-59); BILIRUBIN,DIRECT 0.6 mg/dL (0.0-0.4); BILIRUBIN,TOTAL 0.7 mg/dL (0.2-1.3); BLOOD UREA NITROGEN 32 mg/dL (7-20); CALCIUM 9.1 mg/dL (8.4-10.2); CARBON DIOXIDE 27 mmol/L (22-30); CHLORIDE 112 mmol/L (98-107); GLUCOSE 144 mg/dL (75-110); PHOSPHORUS 3.3 mg/dL (2.5-4.5); POTASSIUM 4.5 mmol/L (3.6-5.0); SODIUM 144.9 mmol/L (137-145)
[2018-03-03 04:53] LABS: ABSOLUTE LYMPHOCYTES (AUTO) 0.6 10^3/uL (0.5-4.7); ABSOLUTE MONOCYTES (AUTO) 0.5 10^3/uL (0.1-1.4); ABSOLUTE NEUT (AUTO) 6.7 10^3/uL (1.7-8.2); BASOPHILS % (AUTO) 0.1 % (0-2); HEMOGLOBIN 9.3 g/dL (13.5-17.0); LYMPHOCYTES % (AUTO) 7.2 % (13-45); MEAN CORPUSCULAR HEMOGLOBIN 28.7 pg (27.0-33.4); MEAN CORPUSCULAR HGB CONC 33.4 g/dL (32.0-36.0); MEAN CORPUSCULAR VOLUME 86 fl (80-97); MONOCYTES % (AUTO) 6.2 % (3-13); PLATELET COUNT 184 10^3/uL (150-450); RED BLOOD COUNT 3.25 10^6/uL (4.35-5.55); RED CELL DISTRIBUTION WIDTH 17.2 % (11.5-14.0); SEGMENTED NEUTROPHILS % (AUTO) 86.5 % (42-78); TOTAL CELLS COUNTED % (AUTO) 100 %; WHITE BLOOD COUNT 7.8 10^3/uL (4.0-10.5)
[2018-03-03] MEDS: PIPERACILLIN SODIUM/TAZOBACTAM 3.375 GM in NORMAL SALINE 100 ML IV SCH ×4 (05:37→23:14)
[2018-03-03] MEDS: METHYLPREDNISOLONE INJ 40 MG/1 ML SDV IV SCH ×3 (05:37→21:06)
[2018-03-03] MEDS: PROPOFOL 1,000 MG/100 ML INFUS..BTL IV PRN ×3 (05:38→20:30)
[2018-03-03] MEDS: POTASSI CL 20 MEQ/D5-1/2NS 1L 1,000 ML IV PRN ×2 (05:38→16:56)
[2018-03-03 06:26] LABS: ARTERIAL BLOOD BASE EXCESS 1.4 mmol/L; ARTERIAL BLOOD H2CO3 1.16 mmol/L (1.05-1.35); ARTERIAL BLOOD HCO3 25.6 mmol/L (20-26); ARTERIAL BLOOD O2 SATURATION 90.6 % (94-98); ARTERIAL BLOOD PCO2 38.6 mmHg (35-45); ARTERIAL BLOOD PH 7.44 (7.35-7.45); ARTERIAL BLOOD PO2 56.6 mmHg (80-100); ARTERIAL BLOOD TOTAL CO2 26.8 mmol/L (23-27)
[2018-03-03 06:27] LABS: ARTERIAL BLOOD FIO2 25%
--- NOTE | 2018-03-03 07:55 | RADIOLOGY REPORT (SQ) ---
EXAM DESCRIPTION: CHEST SINGLE VIEW COMPLETED DATE/TIME: 03/03/2018 7:16 am REASON FOR STUDY: resp failure COMPARISON: Chest films 02/25/2018, 02/27/2018, 03/01/2018, 03/02/2018 CT chest 03/01/2018 EXAM PARAMETERS: NUMBER OF VIEWS: One view. TECHNIQUE: Single frontal radiographic view of the chest acquired. RADIATION DOSE: NA LIMITATIONS: None. FINDINGS: LUNGS AND PLEURA: Re-accumulation of a moderate right pleural effusion compared to 8. There is loss of the discrete right heart border likely indicating partial collapse of the right lung . No shift of mediastinal structures towards the right. There are left retrocardiac air bronchograms from medial left lung base airspace disease atelectasis versus pneumonia. No left pleural effusion. No left pneumothorax. MEDIASTINUM AND HILAR STRUCTURES: No masses. Contour normal. HEART AND VASCULAR STRUCTURES: No gross cardiomegaly BONES: No acute findings. HARDWARE: Endotracheal tube tip is 3 cm above the tavon. No nasogastric tube. Old sternotomy for C ABG OTHER: No other significant finding. IMPRESSION: Re-accumulation of pleural effusion in the right chest with partial collapse the right l kay. Left medial basilar atelectasis. Endotracheal tube tip 3 cm above the tavon TECHNICAL DOCUMENTATION: JOB ID: [id number] [employer]- All Rights Reserved Reading location - IP/workstation name: [email or web address]
--- NOTE | 2018-03-03 08:45 | PDOC PROGRESS REPORT ---
Subjective Progress Note for:: 03/03/18 Subjective:: Patient remains on ventilator. is at bedside. Nurses report no major issues overnight. He is still on Levophed. Antibiotics were started yesterday for the positive resp. cultures. Reason For Visit: GIB,COPD,ACUTE ON CHRONIC RESP FAILURE Physical Exam Vital Signs: Temp Pulse Resp BP Pulse Ox 97.5 F 45 L 16 90/44 L 96 03/03/18 08:31 03/03/18 08:25 03/03/18 08:31 03/03/18 08:30 03/03/18 08:31 Intake & Output 03/02/18 03/03/18 03/04/18 06:59 06:59 06:59 Intake Total 1490 2102 Output Total 920 1570 145 Balance 570 532 -145 Weight 90.7 kg 89.4 kg General appearance: PRESENT: no acute distress, well-developed, well-nourished Head exam: PRESENT: normocephalic Mouth exam: PRESENT: moist Respiratory exam: PRESENT: clear to auscultation randa, unlabored Cardiovascular exam: PRESENT: RRR Pulses: PRESENT: normal dorsalis pedis pul Vascular exam: PRESENT: pallor GI/Abdominal exam: PRESENT: hypoactive bowel sounds, soft. ABSENT: tenderness Extremities exam: PRESENT: +1 edema Neurological exam: PRESENT: other - Sedated on the ventilator. Focused psych exam: ABSENT: restlessness Skin exam: PRESENT: pallor Results Laboratory Results: 03/03/18 04:44 03/03/18 03:12 03/03/18 03/03/18 03/03/18 03:12 03:12 04:44 WBC Cancelled 7.8 RBC Cancelled 3.25 L Hgb Cancelled 9.3 L Hct Cancelled 28.0 L MCV Cancelled 86 MCH Cancelled 28.7 MCHC Cancelled 33.4 RDW Cancelled 17.2 H Plt Count Cancelled 184 Seg Neutrophils % Cancelled 86.5 H Lymphocytes % Cancelled 7.2 L Monocytes % Cancelled 6.2 Eosinophils % Cancelled 0.0 Basophils % Cancelled 0.1 Absolute Neutrophils Cancelled 6.7 Absolute Lymphocytes Cancelled 0.6 Absolute Monocytes Cancelled 0.5 Absolute Eosinophils Cancelled 0.0 Absolute Basophils Cancelled 0.0 Carbonic Acid HCO3/H2CO3 Ratio ABG pH ABG pCO2 ABG pO2 ABG HCO3 ABG O2 Saturation ABG Base Excess FiO2 Sodium 144.9 Potassium 4.5 Chloride 112 H Carbon Dioxide 27 Anion Gap 6 BUN 32 H Creatinine 1.31 H Est GFR ( Amer) > 60 Est GFR (Non-Af Amer) 53 L Glucose 144 H Calcium 9.1 Phosphorus 3.3 Magnesium 2.6 H Total Bilirubin 0.7 AST 41 ALT 44 Alkaline Phosphatase 80 Total Protein 5.0 L Albumin 2.7 L 03/03/18 06:05 WBC RBC Hgb Hct MCV MCH MCHC RDW Plt Count Seg Neutrophils % Lymphocytes % Monocytes % Eosinophils % Basophils % Absolute Neutrophils Absolute Lymphocytes Absolute Monocytes Absolute Eosinophils Absolute Basophils Carbonic Acid 1.16 HCO3/H2CO3 Ratio 22:1 ABG pH 7.44 ABG pCO2 38.6 ABG pO2 56.6 L ABG HCO3 25.6 ABG O2 Saturation 90.6 L ABG Base Excess 1.4 FiO2 25% Sodium Potassium Chloride Carbon Dioxide Anion Gap BUN Creatinine Est GFR ( Amer) Est GFR (Non-Af Amer) Glucose Calcium Phosphorus Magnesium Total Bilirubin AST ALT Alkaline Phosphatase Total Protein Albumin 02/27/18 12:15 Bronchial Washings Gram Stain - Final 02/27/18 12:15 Bronchial Washings Bronchial Washings Culture - Final Streptococcus Pneumoniae Normal Adrienne Absent 02/26/18 02/27/18 02/27/18 05:35 13:10 13:10 Creatine Kinase 51 L CK-MB (CK-2) 0.92 Troponin I 0.012 NT-Pro-B Natriuret Pep 231 02/27/18 02/27/18 02/28/18 18:25 18:25 00:50 Creatine Kinase 51 L 50 L CK-MB (CK-2) 0.69 Troponin I 0.012 NT-Pro-B Natriuret Pep 02/28/18 00:50 Creatine Kinase CK-MB (CK-2) 0.61 Troponin I < 0.012 NT-Pro-B Natriuret Pep Impressions: KUB X-Ray 02/27/18 00:00 IMPRESSION: Nasogastric tube tip and side port in the stomach Abdomen/Pelvis CT 02/28/18 00:00 IMPRESSION: Right hilar mass with precarinal and anterior mediastinal masses suspicious for malignancy. There is also nodular soft tissue pleural based in the upper lobe suspicious for tumor. Possible metastatic lesion in the left lung. Large effusion with marked compressive atelectasis of the right lung. Possible liver metastases. Chest CT 02/28/18 00:00 IMPRESSION: Right hilar mass with precarinal and anterior mediastinal masses suspicious for malignancy. There is also nodular soft tissue pleural based in the upper lobe suspicious for tumor. Possible metastatic lesion in the left lung. Large effusion with marked compressive atelectasis of the right lung. Possible liver metastases. Abdomen Ultrasound 03/01/18 00:00 IMPRESSION: Limited examination. Diffusely nodular appearance of the liver similar to that seen on comparison CT imaging. Given additional findings demonstrated on CT, favor metastatic neoplasm. Chest X-Ray 03/03/18 06:00 IMPRESSION: Re-accumulation of pleural effusion in the right chest with partial collapse the right lung. Left medial basilar atelectasis. Endotracheal tube tip 3 cm above the tavon Assessment & Plan - Diagnosis (1) Lung cancer Qualifiers: Laterality: right Lung location: upper lobe of lung Qualified Code(s): C34.11 - Malignant neoplasm of upper lobe, right bronchus or lung Is this a current diagnosis for this admission?: Yes Plan: I reviewed the U/S report with the patient's and explained that this also appears to show metastatic cancer. We discussed his wishes. She believes he would only wish for comfort measures at this point and would not want to be overly aggressive with treatment for an incurable illness. She states that his children are in agreement. (2) Acute blood loss anemia Is this a current diagnosis for this admission?: Yes Plan: HGB has now stabilized. He is on Lovenox for DVT prophylaxis. (3) Acute respiratory failure with hypoxia and hypercarbia Is this a current diagnosis for this admission?: Yes Plan: I have explained to the that the unknown question in this case, is if he will be able to survive once the ventilator support has been withdrawn. I doubt that his overall status will greatly improve by leaving him on the ventilator. I am hopeful that he will be stable enough to be discharged home with Hospice for some period of time, but I cannot guarantee that will happen. I spoke with Dr. Capps. He agrees. We will work today on having the family all at bedside, weaning the ventilator, and seeing how patient does and if he will survive. - Plan Summary Plan Summary: I will be available if needed.
[2018-03-03] MEDS: CYANOCOBALAMIN (VITAMIN B-12) INJ 1000 MCG/1 ML VIAL IM SCH (10:49)
[2018-03-03] MEDS: ENOXAPARIN SODIUM INJ 40 MG/0.4 ML DISP.SYRIN SUBCUT SCH (10:50)
--- NOTE | 2018-03-03 11:12 | RADIOLOGY REPORT (SQ) ---
EXAM DESCRIPTION: CHEST SINGLE VIEW COMPLETED DATE/TIME: 03/03/2018 10:54 am REASON FOR STUDY: post thoracentesis COMPARISON: None. EXAM PARAMETERS: NUMBER OF VIEWS: One view. TECHNIQUE: Single frontal radiographic view of the chest acquired. RADIATION DOSE: NA LIMITATIONS: None. FINDINGS: LUNGS AND PLEURA: Post right thoracentesis with removal of 1 L of fluid. No pneumothorax. There is still a small residual pleural effusion along the right major fissure and periphery of the upper hemithorax. No focal right-sided infiltrates. No left-sided infiltrates. No left pleural effusion. No left pne umothorax. MEDIASTINUM AND HILAR STRUCTURES: No masses. Contour normal. HEART AND VASCULAR STRUCTURES: Borderline cardiomegaly post sternotomy for CABG BONES: No acute findings. HARDWARE: Endotracheal tube tip 4 cm above the tavon. OTHER: No other significant finding. IMPRESSION: No pneumothorax post right-sided thoracentesis. TECHNICAL DOCUMENTATION: JOB ID: [id number] [employer]- All Rights Reserved Reading location - IP/workstation name: [email or web address] [email or web address]
--- NOTE | 2018-03-03 11:13 | RADIOLOGY REPORT (SQ) ---
EXAM DESCRIPTION: U/S THORACENTESIS WITH IMAGING COMPLETED DATE/TIME: 03/03/2018 10:36 am REASON FOR STUDY: r effusion COMPARISON: Chest films 03/01/2018, 03/02/2018, 03/03/2018 LIMITATIONS: None. PROCEDURE: Procedure, risks, benefit, and alternative explained to patient's who then gave writ ten consent. The right lateral chest wall was marked using ultrasound guidance. A time-out was call ed for correct marking verification. Chest prepped and draped using sterile technique. Local anesthe lindsay achieved using 6 ml of 1% lidocaine injection. A 6fr Safe-T- Centesis set was introduced into th e right pleural space. Fluid was aspirated. The catheter was removed and the entry site was covered with sterile bandage. No immediate complications noted. Specimens of fluid were sent for testing as per Dr. Montes Images acquired during the procedure were stored on PACS. FINDINGS: ENTRY SITE: Right lateral pleural space FLUID VOLUME: 1 L FLUID ANALYSIS: Serosanguineous fluid was sent for testing as per Dr. Montes OTHER: Post procedure chest film dictated separately demonstrates no right-sided pneumothorax. IMPRESSION: SUCCESSFUL THORACENTESIS USING ULTRASOUND GUIDANCE. COMMENT: Patient medication list reviewed: Yes- Quality ID# [id number]:Eligible professional attests to doc umenting in the medical record they obtained, updated, or reviewed the patient's current medications. TECHNICAL DOCUMENTATION: JOB ID: [id number] [employer]- All Rights Reserved Reading location - IP/workstation name: [email or web address]
[2018-03-03 12:47] LABS: FLUID APPEARANCE TURBID; FLUID COLOR RED; FLUID TYPE PLEURAL; FLUID VISCOSITY LIQUID
--- NOTE | 2018-03-03 13:23 | RADIOLOGY REPORT (SQ) ---
EXAM DESCRIPTION: CHEST SINGLE VIEW COMPLETED DATE/TIME: 03/03/2018 1:10 pm REASON FOR STUDY: s/p thoracentesis 2 hour COMPARISON: Immediate post thoracentesis chest film 03/03/2018, 1041 hours EXAM PARAMETERS: NUMBER OF VIEWS: One view. TECHNIQUE: Single frontal radiographic view of the chest acquired. RADIATION DOSE: NA LIMITATIONS: None. FINDINGS: LUNGS AND PLEURA: No pneumothorax 2 hours post right thoracentesis. There is a small amount of residual right pleural effusion along the upper right hemithorax. Left lung grossly clear. No left pleural effusion or pneumothorax. MEDIASTINUM AND HILAR STRUCTURES: Enlarged right hilum unchanged HEART AND VASCULAR STRUCTURES: Heart normal in size. Old sternotomy and CABG. BONES: No acute findings. HARDWARE: Endotracheal tube tip 5 cm above the tavon. OTHER: No other significant finding. IMPRESSION: No pneumothorax 2 hours post right thoracentesis TECHNICAL DOCUMENTATION: JOB ID: [id number] [employer] All Rights Reserved Reading location - IP/workstation name: [email or web address]
[2018-03-03] MEDS: MIDAZOLAM HCL 50 MG/100 ML RTUINJ IV PRN (13:26)
[2018-03-03] MEDS: DEXTROSE 5%-WATER 250 ML with NOREPINEPHRINE BITARTRATE 4 MG IV PRN ×2 (13:26)
--- NOTE | 2018-03-03 14:05 | PDOC PROGRESS REPORT ---
Subjective Progress Note for:: 03/03/18 Subjective:: Intubated and sedated Reason For Visit: GIB,COPD,ACUTE ON CHRONIC RESP FAILURE Physical Exam Vital Signs: Temp Pulse Resp BP Pulse Ox 97.2 F 48 L 21 H 125/47 L 96 03/03/18 07:55 03/03/18 07:55 03/03/18 07:55 03/03/18 07:55 03/03/18 07:55 Intake & Output 03/02/18 03/03/18 03/04/18 06:59 06:59 06:59 Intake Total 1490 2102 Output Total 920 1570 145 Balance 570 532 -145 Weight 90.7 kg 89.4 kg General appearance: PRESENT: no acute distress. ABSENT: cooperative, disheveled Head exam: PRESENT: atraumatic, normocephalic Eye exam: PRESENT: conjunctiva pale. ABSENT: EOMI, nystagmus, periorbital swelling, scleral icterus Mouth exam: PRESENT: dry mucosa, neck supple, tongue midline, other - ET tube in place Neck exam: ABSENT: carotid bruit, JVD, lymphadenopathy, thyromegaly, tracheal deviation, tracheostomy Respiratory exam: PRESENT: decreased breath sounds, prolonged expiratory phas, rales, rhonchi, unlabored, wheezes. ABSENT: retraction, stridor Cardiovascular exam: PRESENT: RRR, +S1, +S2, tachycardia Pulses: PRESENT: normal radial pulses GI/Abdominal exam: PRESENT: diminished bowel sounds, soft Extremities exam: ABSENT: calf tenderness, clubbing, joint swelling Musculoskeletal exam: ABSENT: ambulatory, deformity, dislocation Neurological exam: ABSENT: awake Skin exam: PRESENT: dry, warm Results Laboratory Results: 03/03/18 04:44 03/03/18 03:12 03/03/18 03/03/18 03/03/18 03:12 03:12 04:44 WBC Cancelled 7.8 RBC Cancelled 3.25 L Hgb Cancelled 9.3 L Hct Cancelled 28.0 L MCV Cancelled 86 MCH Cancelled 28.7 MCHC Cancelled 33.4 RDW Cancelled 17.2 H Plt Count Cancelled 184 Seg Neutrophils % Cancelled 86.5 H Lymphocytes % Cancelled 7.2 L Monocytes % Cancelled 6.2 Eosinophils % Cancelled 0.0 Basophils % Cancelled 0.1 Absolute Neutrophils Cancelled 6.7 Absolute Lymphocytes Cancelled 0.6 Absolute Monocytes Cancelled 0.5 Absolute Eosinophils Cancelled 0.0 Absolute Basophils Cancelled 0.0 Carbonic Acid HCO3/H2CO3 Ratio ABG pH ABG pCO2 ABG pO2 ABG HCO3 ABG O2 Saturation ABG Base Excess FiO2 Sodium 144.9 Potassium 4.5 Chloride 112 H Carbon Dioxide 27 Anion Gap 6 BUN 32 H Creatinine 1.31 H Est GFR ( Amer) > 60 Est GFR (Non-Af Amer) 53 L Glucose 144 H Calcium 9.1 Phosphorus 3.3 Magnesium 2.6 H Total Bilirubin 0.7 AST 41 ALT 44 Alkaline Phosphatase 80 Total Protein 5.0 L Albumin 2.7 L 03/03/18 06:05 WBC RBC Hgb Hct MCV MCH MCHC RDW Plt Count Seg Neutrophils % Lymphocytes % Monocytes % Eosinophils % Basophils % Absolute Neutrophils Absolute Lymphocytes Absolute Monocytes Absolute Eosinophils Absolute Basophils Carbonic Acid 1.16 HCO3/H2CO3 Ratio 22:1 ABG pH 7.44 ABG pCO2 38.6 ABG pO2 56.6 L ABG HCO3 25.6 ABG O2 Saturation 90.6 L ABG Base Excess 1.4 FiO2 25% Sodium Potassium Chloride Carbon Dioxide Anion Gap BUN Creatinine Est GFR ( Amer) Est GFR (Non-Af Amer) Glucose Calcium Phosphorus Magnesium Total Bilirubin AST ALT Alkaline Phosphatase Total Protein Albumin 02/27/18 12:15 Bronchial Washings Gram Stain - Final 02/27/18 12:15 Bronchial Washings Bronchial Washings Culture - Final Streptococcus Pneumoniae Normal Adrienne Absent 02/26/18 02/27/18 02/27/18 05:35 13:10 13:10 Creatine Kinase 51 L CK-MB (CK-2) 0.92 Troponin I 0.012 NT-Pro-B Natriuret Pep 231 02/27/18 02/27/18 02/28/18 18:25 18:25 00:50 Creatine Kinase 51 L 50 L CK-MB (CK-2) 0.69 Troponin I 0.012 NT-Pro-B Natriuret Pep 02/28/18 00:50 Creatine Kinase CK-MB (CK-2) 0.61 Troponin I < 0.012 NT-Pro-B Natriuret Pep Impressions: KUB X-Ray 02/27/18 00:00 IMPRESSION: Nasogastric tube tip and side port in the stomach Abdomen/Pelvis CT 02/28/18 00:00 IMPRESSION: Right hilar mass with precarinal and anterior mediastinal masses suspicious for malignancy. There is also nodular soft tissue pleural based in the upper lobe suspicious for tumor. Possible metastatic lesion in the left lung. Large effusion with marked compressive atelectasis of the right lung. Possible liver metastases. Chest CT 02/28/18 00:00 IMPRESSION: Right hilar mass with precarinal and anterior mediastinal masses suspicious for malignancy. There is also nodular soft tissue pleural based in the upper lobe suspicious for tumor. Possible metastatic lesion in the left lung. Large effusion with marked compressive atelectasis of the right lung. Possible liver metastases. Abdomen Ultrasound 03/01/18 00:00 IMPRESSION: Limited examination. Diffusely nodular appearance of the liver similar to that seen on comparison CT imaging. Given additional findings demonstrated on CT, favor metastatic neoplasm. Chest X-Ray 03/03/18 06:00 IMPRESSION: Re-accumulation of pleural effusion in the right chest with partial collapse the right lung. Left medial basilar atelectasis. Endotracheal tube tip 3 cm above the tavon Assessment & Plan - Diagnosis (1) Non-small cell cancer of right lung Is this a current diagnosis for this admission?: Yes Plan: Probable metastatic disease CT of chest and abdomen (2) Acute respiratory failure with hypoxia and hypercarbia Is this a current diagnosis for this admission?: Yes Plan: 02/27/18 12:15 Gram Stain - Preliminary Bronchial Washings Bronchial Washings Culture - Preliminary Streptococcus Pneumoniae Normal Adrienne Absent 02/27/18 07:30 Gram Stain - Preliminary Tracheal Aspirate Sputum Culture - Preliminary Streptococcus Pneumoniae Normal Adrienne (3) COPD (chronic obstructive pulmonary disease) Is this a current diagnosis for this admission?: Yes Plan: Solu-Medrol has been added Generic Name Dose Route Start Last Admin Trade Name Freq PRN Reason Stop Dose Admin Albuterol/Ipratropium 3 ml 02/25/18 23:03 Duoneb 3 Ml Ampul NEB 03/27/18 23:02 [id number] PRN SHORTNESS OF BREATH Albuterol/Ipratropium 3 ml 02/26/18 02:00 03/01/18 13:40 Duoneb 3 Ml Ampul NEB 03/28/18 01:59 3 ml [id number] JELANI (4) GI bleed Is this a current diagnosis for this admission?: Yes Plan: Status post EGD Stable thus farp (5) Pleural effusion Is this a current diagnosis for this admission?: Yes Plan: Rapidly increasing pleural effusion on the right side request thoracentesis under ultrasound guidance clinic cytology as well as chemistry and cultures - Time Total Critical Time (Minutes): 45
[2018-03-03 14:30] LABS: TOTAL PROTEIN 4.6 g/dL (6.3-8.2)
--- NOTE | 2018-03-03 18:48 | PDOC PROGRESS REPORT ---
Subjective Progress Note for:: 03/03/18 Subjective:: He remains sedated and intubated. He has been stable overnight. He still requires a low-dose Levophed to help keep his blood pressure up. He has some family that are trying to get her from out of town. They hope to be her later this week. His would like for him to be kept alive if possible before his family gets here and then terminally extubate him at that time. There was still like for us to try to wean him from the ventilator to see if he can come off the ventilator and wake up and interact with his family some. Reason For Visit: GIB,COPD,ACUTE ON CHRONIC RESP FAILURE Physical Exam Vital Signs: Temp Pulse Resp BP Pulse Ox 99.0 F 55 L 17 121/53 L 95 03/03/18 18:00 03/03/18 17:53 03/03/18 18:00 03/03/18 17:59 03/03/18 18:00 Intake & Output 03/02/18 03/03/18 03/04/18 06:59 06:59 06:59 Intake Total 1490 2102 1480 Output Total 920 1570 755 Balance 570 532 725 Weight 90.7 kg 89.4 kg General appearance: PRESENT: other - Sedated, intubated Respiratory exam: PRESENT: rhonchi - On the right side of his chest, he has a very crescendo decrescendo wheezing sound centrally, with diminished sounds in the bases and at the apex.. ABSENT: rales, wheezes Cardiovascular exam: PRESENT: RRR. ABSENT: diastolic murmur, rubs, systolic murmur GI/Abdominal exam: PRESENT: normal bowel sounds, soft. ABSENT: distended, guarding, mass, organolmegaly, rebound, tenderness Extremities exam: PRESENT: calf tenderness, pedal edema, +2 edema. ABSENT: clubbing Musculoskeletal exam: PRESENT: normal inspection. ABSENT: deformity Neurological exam: PRESENT: other - Sedated, intubated Results Laboratory Results: 03/03/18 04:44 03/03/18 03:12 03/03/18 03/03/18 03/03/18 03:12 03:12 04:44 WBC Cancelled 7.8 RBC Cancelled 3.25 L Hgb Cancelled 9.3 L Hct Cancelled 28.0 L MCV Cancelled 86 MCH Cancelled 28.7 MCHC Cancelled 33.4 RDW Cancelled 17.2 H Plt Count Cancelled 184 Seg Neutrophils % Cancelled 86.5 H Lymphocytes % Cancelled 7.2 L Monocytes % Cancelled 6.2 Eosinophils % Cancelled 0.0 Basophils % Cancelled 0.1 Absolute Neutrophils Cancelled 6.7 Absolute Lymphocytes Cancelled 0.6 Absolute Monocytes Cancelled 0.5 Absolute Eosinophils Cancelled 0.0 Absolute Basophils Cancelled 0.0 Carbonic Acid HCO3/H2CO3 Ratio ABG pH ABG pCO2 ABG pO2 ABG HCO3 ABG O2 Saturation ABG Base Excess FiO2 Sodium 144.9 Potassium 4.5 Chloride 112 H Carbon Dioxide 27 Anion Gap 6 BUN 32 H Creatinine 1.31 H Est GFR ( Amer) > 60 Est GFR (Non-Af Amer) 53 L Glucose 144 H Calcium 9.1 Phosphorus 3.3 Magnesium 2.6 H Total Bilirubin 0.7 AST 41 ALT 44 Alkaline Phosphatase 80 Total Protein 5.0 L Albumin 2.7 L Fluid Type Fluid Source Fluid Color Fluid Appearance Fluid Viscosity Fluid WBC Fluid RBC 03/03/18 03/03/18 03/03/18 06:05 09:33 10:14 WBC RBC Hgb Hct MCV MCH MCHC RDW Plt Count Seg Neutrophils % Lymphocytes % Monocytes % Eosinophils % Basophils % Absolute Neutrophils Absolute Lymphocytes Absolute Monocytes Absolute Eosinophils Absolute Basophils Carbonic Acid 1.16 HCO3/H2CO3 Ratio 22:1 ABG pH 7.44 ABG pCO2 38.6 ABG pO2 56.6 L ABG HCO3 25.6 ABG O2 Saturation 90.6 L ABG Base Excess 1.4 FiO2 25% Sodium Potassium Chloride Carbon Dioxide Anion Gap BUN Creatinine Est GFR ( Amer) Est GFR (Non-Af Amer) Glucose Calcium Phosphorus Magnesium Total Bilirubin AST ALT Alkaline Phosphatase Total Protein 4.6 L Albumin Fluid Type PLEURAL Fluid Source Fluid Color RED Fluid Appearance TURBID Fluid Viscosity LIQUID Fluid WBC 789 Fluid RBC [id number] 02/27/18 12:15 Bronchial Washings Gram Stain - Final 02/27/18 12:15 Bronchial Washings Bronchial Washings Culture - Final Streptococcus Pneumoniae Normal Adrienne Absent 02/26/18 02/27/18 02/27/18 05:35 13:10 13:10 Creatine Kinase 51 L CK-MB (CK-2) 0.92 Troponin I 0.012 NT-Pro-B Natriuret Pep 231 02/27/18 02/27/18 02/28/18 18:25 18:25 00:50 Creatine Kinase 51 L 50 L CK-MB (CK-2) 0.69 Troponin I 0.012 NT-Pro-B Natriuret Pep 02/28/18 00:50 Creatine Kinase CK-MB (CK-2) 0.61 Troponin I < 0.012 NT-Pro-B Natriuret Pep Impressions: KUB X-Ray 02/27/18 00:00 IMPRESSION: Nasogastric tube tip and side port in the stomach Abdomen/Pelvis CT 02/28/18 00:00 IMPRESSION: Right hilar mass with precarinal and anterior mediastinal masses suspicious for malignancy. There is also nodular soft tissue pleural based in the upper lobe suspicious for tumor. Possible metastatic lesion in the left lung. Large effusion with marked compressive atelectasis of the right lung. Possible liver metastases. Chest CT 02/28/18 00:00 IMPRESSION: Right hilar mass with precarinal and anterior mediastinal masses suspicious for malignancy. There is also nodular soft tissue pleural based in the upper lobe suspicious for tumor. Possible metastatic lesion in the left lung. Large effusion with marked compressive atelectasis of the right lung. Possible liver metastases. Abdomen Ultrasound 03/01/18 00:00 IMPRESSION: Limited examination. Diffusely nodular appearance of the liver similar to that seen on comparison CT imaging. Given additional findings demonstrated on CT, favor metastatic neoplasm. Thoracentesis Ultrasound 03/03/18 08:17 IMPRESSION: SUCCESSFUL THORACENTESIS USING ULTRASOUND GUIDANCE. Chest X-Ray 03/03/18 12:30 IMPRESSION: No pneumothorax 2 hours post right thoracentesis Assessment & Plan - Diagnosis (1) Acute respiratory failure with hypoxia and hypercarbia Is this a current diagnosis for this admission?: Yes Plan: He is now intubated. Blood gases have improved. Pulmonology been consulted. Steroids were started empirically. With all of his comorbid conditions, it can be tough to extubate him, and his family understands this, but they would like for us to try to wean him from the ventilator in the hopes that they will be able to extubate him when his family gets here and that he will at least be able to wake up and interact with him some at that time. Apparently his family that is coming have plane tickets with March 12 but will try to get them moved up to get here sooner. (2) Metabolic encephalopathy Is this a current diagnosis for this admission?: Yes Plan: Due to his various medical issues. Unable to determine if this is improved because now he sedated and intubated. (3) Acute blood loss anemia Is this a current diagnosis for this admission?: Yes Plan: Currently stable, thought to be due to bleeding from the large mass in the right side of his chest. 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 CT scan of the chest abdomen and pelvis showed the tumor described in the chest along with a necrotic lymph node in the mediastinum, and it showed a nodular appearance of the liver. An ultrasound of the liver was done and it was positive for nodular appearance consistent with metastatic disease. Oncology has been consulted. - Time Time Spent with patient: 35 or more minutes Total Critical Time (Minutes): 35 Medications reviewed and adjusted accordingly: Yes
[2018-03-04] MEDS: POTASSI CL 20 MEQ/D5-1/2NS 1L 1,000 ML IV PRN ×2 (01:07→15:49)
[2018-03-04] MEDS: IPRATROPIUM/ALBUTEROL 0.5-2.5 MG/3 ML AMPUL NEB SCH ×4 (02:10→20:49)
[2018-03-04 04:24] LABS: HEMATOCRIT 27.2 % (37.9-51.0); MEAN CORPUSCULAR HEMOGLOBIN 28.5 pg (27.0-33.4); MEAN CORPUSCULAR HGB CONC 32.9 g/dL (32.0-36.0); MEAN CORPUSCULAR VOLUME 87 fl (80-97); PLATELET COUNT 182 10^3/uL (150-450); RED BLOOD COUNT 3.15 10^6/uL (4.35-5.55); RED CELL DISTRIBUTION WIDTH 17.4 % (11.5-14.0)
[2018-03-04 04:32] LABS: ARTERIAL BLOOD BASE EXCESS -1.2 mmol/L; ARTERIAL BLOOD H2CO3 1.07 mmol/L (1.05-1.35); ARTERIAL BLOOD HCO3 22.8 mmol/L (20-26); ARTERIAL BLOOD O2 SATURATION 92.3 % (94-98); ARTERIAL BLOOD PCO2 35.4 mmHg (35-45); ARTERIAL BLOOD PH 7.43 (7.35-7.45); ARTERIAL BLOOD PO2 61.3 mmHg (80-100); ARTERIAL BLOOD TOTAL CO2 23.9 mmol/L (23-27)
[2018-03-04 04:33] LABS: ARTERIAL BLOOD FIO2 25%
[2018-03-04 04:47] LABS: ANION GAP 7 (5-19); BLOOD UREA NITROGEN 26 mg/dL (7-20); CALCIUM 8.8 mg/dL (8.4-10.2); CARBON DIOXIDE 26 mmol/L (22-30); CHLORIDE 112 mmol/L (98-107); GLUCOSE 160 mg/dL (75-110); PHOSPHORUS 3.5 mg/dL (2.5-4.5); POTASSIUM 4.8 mmol/L (3.6-5.0); SODIUM 144.8 mmol/L (137-145)
[2018-03-04 05:12] LABS: ABSOLUTE LYMPHOCYTES# (MANUAL) 0.2 10^3/uL (0.5-4.7); ABSOLUTE MONOCYTES # (MANUAL) 0.1 10^3/uL (0.1-1.4); ABSOLUTE NEUTROPHILS# (MANUAL) 7.7 10^3/uL (1.7-8.2); BASOPHILS % (MANUAL) 0 % (0-2); EOSINOPHILS % (MANUAL) 0 % (0-6); LYMPHOCYTES % (MANUAL) 3 % (13-45); MONOCYTES % (MANUAL) 1 % (3-13); SEGMENTED NEUTROPHILS % (MAN) 96 % (42-78); TOTAL CELLS COUNTED 100
[2018-03-04 05:13] LABS: ANISOCYTOSIS 1+; HYPOCHROMASIA 1+; PLATELET COMMENT ADEQUATE
[2018-03-04] MEDS: METHYLPREDNISOLONE INJ 40 MG/1 ML SDV IV SCH ×3 (05:17→21:47)
[2018-03-04] MEDS: PROPOFOL 1,000 MG/100 ML INFUS..BTL IV PRN ×3 (05:18→21:50)
[2018-03-04] MEDS: PIPERACILLIN SODIUM/TAZOBACTAM 3.375 GM in NORMAL SALINE 100 ML IV SCH ×4 (05:18→23:29)
--- NOTE | 2018-03-04 06:41 | RADIOLOGY REPORT (SQ) ---
EXAM DESCRIPTION: XR CHEST 1 VIEW COMPLETED DATE/TME: 03/04/2018 06:00 CLINICAL HISTORY: 72 years Male, pna/effusion resp failure COMPARISON: One day prior. NUMBER OF VIEWS/TECHNIQUE: 1/AP FINDINGS: Moderate patchy opacity of the right mid lung field, moderate hazy opacity-effusion of the right lung base, small left basilar opacity-effusion, normal cardiac silhouette, sternotomy, endotracheal tube tip is 4.3 cm from the tavon. No pneumothorax. No acute bone defect. IMPRESSION: No significant change.
--- NOTE | 2018-03-04 09:44 | PDOC PROGRESS REPORT ---
Subjective Progress Note for:: 03/04/18 Subjective:: Patient is more awake on the vent. Family reports no new issues. Nurses report no new issues. Patient shakes his head and denies pain. He says yes, he is hungry. Reason For Visit: GIB,COPD,ACUTE ON CHRONIC RESP FAILURE Physical Exam Vital Signs: Temp Pulse Resp BP Pulse Ox 97.9 F 50 L 20 117/50 L 96 03/04/18 06:31 03/04/18 08:38 03/04/18 08:38 03/04/18 06:31 03/04/18 08:38 Intake & Output 03/03/18 03/04/18 03/05/18 06:59 06:59 06:59 Intake Total 2102 3174 Output Total 1570 1805 Balance 532 1369 Weight 89.4 kg 89.9 kg General appearance: PRESENT: no acute distress Head exam: PRESENT: normocephalic Mouth exam: PRESENT: other - ET tube remains. Respiratory exam: PRESENT: clear to auscultation randa, unlabored Cardiovascular exam: PRESENT: RRR GI/Abdominal exam: PRESENT: soft. ABSENT: tenderness Extremities exam: ABSENT: pedal edema Neurological exam: PRESENT: awake Focused psych exam: ABSENT: restlessness Skin exam: PRESENT: cyanosis - Over nose. Results Laboratory Results: 03/04/18 03:49 03/04/18 03:49 03/03/18 03/03/18 03/04/18 09:33 10:14 03:49 WBC 8.0 RBC 3.15 L Hgb 9.0 L Hct 27.2 L MCV 87 MCH 28.5 MCHC 32.9 RDW 17.4 H Plt Count 182 Seg Neutrophils % Not Reportable Lymphocytes % Not Reportable Monocytes % Not Reportable Eosinophils % Not Reportable Basophils % Not Reportable Absolute Neutrophils Not Reportable Absolute Lymphocytes Not Reportable Absolute Monocytes Not Reportable Absolute Eosinophils Not Reportable Absolute Basophils Not Reportable Carbonic Acid HCO3/H2CO3 Ratio ABG pH ABG pCO2 ABG pO2 ABG HCO3 ABG O2 Saturation ABG Base Excess FiO2 Sodium Potassium Chloride Carbon Dioxide Anion Gap BUN Creatinine Est GFR ( Amer) Est GFR (Non-Af Amer) Glucose Calcium Phosphorus Magnesium Total Protein 4.6 L Fluid Type PLEURAL Fluid Source Fluid Color RED Fluid Appearance TURBID Fluid Viscosity LIQUID Fluid WBC 789 Fluid RBC [id number] 03/04/18 03/04/18 03:49 04:20 WBC RBC Hgb Hct MCV MCH MCHC RDW Plt Count Seg Neutrophils % Lymphocytes % Monocytes % Eosinophils % Basophils % Absolute Neutrophils Absolute Lymphocytes Absolute Monocytes Absolute Eosinophils Absolute Basophils Carbonic Acid 1.07 HCO3/H2CO3 Ratio 21:1 ABG pH 7.43 ABG pCO2 35.4 ABG pO2 61.3 L ABG HCO3 22.8 ABG O2 Saturation 92.3 L ABG Base Excess -1.2 FiO2 25% Sodium 144.8 Potassium 4.8 Chloride 112 H Carbon Dioxide 26 Anion Gap 7 BUN 26 H Creatinine 1.37 H Est GFR ( Amer) > 60 Est GFR (Non-Af Amer) 51 L Glucose 160 H Calcium 8.8 Phosphorus 3.5 Magnesium 2.6 H Total Protein Fluid Type Fluid Source Fluid Color Fluid Appearance Fluid Viscosity Fluid WBC Fluid RBC 02/26/18 02/27/18 02/27/18 05:35 13:10 13:10 Creatine Kinase 51 L CK-MB (CK-2) 0.92 Troponin I 0.012 NT-Pro-B Natriuret Pep 231 02/27/18 02/27/18 02/28/18 18:25 18:25 00:50 Creatine Kinase 51 L 50 L CK-MB (CK-2) 0.69 Troponin I 0.012 NT-Pro-B Natriuret Pep 02/28/18 00:50 Creatine Kinase CK-MB (CK-2) 0.61 Troponin I < 0.012 NT-Pro-B Natriuret Pep Impressions: KUB X-Ray 02/27/18 00:00 IMPRESSION: Nasogastric tube tip and side port in the stomach Abdomen/Pelvis CT 02/28/18 00:00 IMPRESSION: Right hilar mass with precarinal and anterior mediastinal masses suspicious for malignancy. There is also nodular soft tissue pleural based in the upper lobe suspicious for tumor. Possible metastatic lesion in the left lung. Large effusion with marked compressive atelectasis of the right lung. Possible liver metastases. Chest CT 02/28/18 00:00 IMPRESSION: Right hilar mass with precarinal and anterior mediastinal masses suspicious for malignancy. There is also nodular soft tissue pleural based in the upper lobe suspicious for tumor. Possible metastatic lesion in the left lung. Large effusion with marked compressive atelectasis of the right lung. Possible liver metastases. Abdomen Ultrasound 03/01/18 00:00 IMPRESSION: Limited examination. Diffusely nodular appearance of the liver similar to that seen on comparison CT imaging. Given additional findings demonstrated on CT, favor metastatic neoplasm. Thoracentesis Ultrasound 03/03/18 08:17 IMPRESSION: SUCCESSFUL THORACENTESIS USING ULTRASOUND GUIDANCE. Chest X-Ray 03/04/18 06:00 IMPRESSION: No significant change. Assessment & Plan - Diagnosis (1) Lung cancer Qualifiers: Laterality: right Lung location: upper lobe of lung Qualified Code(s): C34.11 - Malignant neoplasm of upper lobe, right bronchus or lung Is this a current diagnosis for this admission?: Yes (2) Acute blood loss anemia Is this a current diagnosis for this admission?: Yes (3) Acute respiratory failure with hypoxia and hypercarbia Is this a current diagnosis for this admission?: Yes - Plan Summary Plan Summary: I spoke with Dr. Montes today. I also had a long conversation with the family. Although Dr. Montes believes patient is ready to be extubated today and should be able to maintain breathing on his own, family would still prefer to wait until the rest of family arrives tonight. They are all in agreement that if patient does not do well, and requires further aggressive care, that he NOT be re-intubated. They would like for him to be made a DNR at this point and agree that he will go home with Hospice if stable enough. I will arrange a preliminary meeting with Hospice in preparation for all of this. All questions were answered. Dr. Villarreal will be covering for me beginning tomorrow. 30 minutes was spent in counseling with family.
[2018-03-04] MEDS: ENOXAPARIN SODIUM INJ 40 MG/0.4 ML DISP.SYRIN SUBCUT SCH (11:03)
[2018-03-04] MEDS: CYANOCOBALAMIN (VITAMIN B-12) INJ 1000 MCG/1 ML VIAL IM SCH (11:04)
[2018-03-04] MEDS: MIDAZOLAM HCL 50 MG/100 ML RTUINJ IV PRN (11:07)
[2018-03-04] MEDS: DEXTROSE 5%-WATER 250 ML with NOREPINEPHRINE BITARTRATE 4 MG IV PRN ×2 (11:07)
--- NOTE | 2018-03-04 18:07 | PDOC PROGRESS REPORT ---
Subjective Progress Note for:: 03/04/18 Subjective:: He remains sedated and intubated. He has been stable overnight. He still requires a low-dose Levophed to help keep his blood pressure up. He was on a sedation holiday and was able to answer yes and no questions and remained fairly calm. He still awaiting family to come in from out of town. He had a thoracentesis yesterday and his breathing seems to be a lot more comfortable. Reason For Visit: GIB,COPD,ACUTE ON CHRONIC RESP FAILURE Physical Exam Vital Signs: Temp Pulse Resp BP Pulse Ox 99.1 F 56 L 16 104/47 L 94 03/04/18 15:25 03/04/18 13:50 03/04/18 15:25 03/04/18 15:15 03/04/18 15:25 Intake & Output 03/03/18 03/04/18 03/05/18 06:59 06:59 06:59 Intake Total 2102 3174 Output Total 1570 1805 800 Balance 532 1369 -800 Weight 89.4 kg 89.9 kg General appearance: PRESENT: no acute distress - Intubated, well-developed, well -nourished Respiratory exam: PRESENT: clear to auscultation randa. ABSENT: rales, rhonchi, wheezes Cardiovascular exam: PRESENT: RRR. ABSENT: diastolic murmur, rubs, systolic murmur Vascular exam: PRESENT: normal capillary refill GI/Abdominal exam: PRESENT: normal bowel sounds, soft. ABSENT: distended, guarding, mass, organolmegaly, rebound, tenderness Extremities exam: PRESENT: pedal edema, +1 edema. ABSENT: clubbing Musculoskeletal exam: PRESENT: normal inspection. ABSENT: deformity Neurological exam: PRESENT: alert, awake - Intubated Skin exam: PRESENT: dry, pallor, warm Results Laboratory Results: 03/04/18 03:49 03/04/18 03:49 03/03/18 03/03/18 03/03/18 10:14 10:14 10:14 WBC RBC Hgb Hct MCV MCH MCHC RDW Plt Count Seg Neutrophils % Lymphocytes % Monocytes % Eosinophils % Basophils % Absolute Neutrophils Absolute Lymphocytes Absolute Monocytes Absolute Eosinophils Absolute Basophils Carbonic Acid HCO3/H2CO3 Ratio ABG pH ABG pCO2 ABG pO2 ABG HCO3 ABG O2 Saturation ABG Base Excess FiO2 Sodium Potassium Chloride Carbon Dioxide Anion Gap BUN Creatinine Est GFR ( Amer) Est GFR (Non-Af Amer) Glucose Calcium Phosphorus Magnesium Fluid Glucose 93 Fluid Total Protein 10.6 Fluid LDH Fluid Amylase 38 03/03/18 03/04/18 03/04/18 10:14 03:49 03:49 WBC 8.0 RBC 3.15 L Hgb 9.0 L Hct 27.2 L MCV 87 MCH 28.5 MCHC 32.9 RDW 17.4 H Plt Count 182 Seg Neutrophils % Not Reportable Lymphocytes % Not Reportable Monocytes % Not Reportable Eosinophils % Not Reportable Basophils % Not Reportable Absolute Neutrophils Not Reportable Absolute Lymphocytes Not Reportable Absolute Monocytes Not Reportable Absolute Eosinophils Not Reportable Absolute Basophils Not Reportable Carbonic Acid HCO3/H2CO3 Ratio ABG pH ABG pCO2 ABG pO2 ABG HCO3 ABG O2 Saturation ABG Base Excess FiO2 Sodium 144.8 Potassium 4.8 Chloride 112 H Carbon Dioxide 26 Anion Gap 7 BUN 26 H Creatinine 1.37 H Est GFR ( Amer) > 60 Est GFR (Non-Af Amer) 51 L Glucose 160 H Calcium 8.8 Phosphorus 3.5 Magnesium 2.6 H Fluid Glucose Fluid Total Protein Fluid LDH 260 Fluid Amylase 03/04/18 04:20 WBC RBC Hgb Hct MCV MCH MCHC RDW Plt Count Seg Neutrophils % Lymphocytes % Monocytes % Eosinophils % Basophils % Absolute Neutrophils Absolute Lymphocytes Absolute Monocytes Absolute Eosinophils Absolute Basophils Carbonic Acid 1.07 HCO3/H2CO3 Ratio 21:1 ABG pH 7.43 ABG pCO2 35.4 ABG pO2 61.3 L ABG HCO3 22.8 ABG O2 Saturation 92.3 L ABG Base Excess -1.2 FiO2 25% Sodium Potassium Chloride Carbon Dioxide Anion Gap BUN Creatinine Est GFR ( Amer) Est GFR (Non-Af Amer) Glucose Calcium Phosphorus Magnesium Fluid Glucose Fluid Total Protein Fluid LDH Fluid Amylase 02/27/18 07:30 Tracheal Aspirate Gram Stain - Final 02/27/18 07:30 Tracheal Aspirate Sputum Culture - Final Streptococcus Pneumoniae Normal Adrienne 02/26/18 02/27/18 02/27/18 05:35 13:10 13:10 Creatine Kinase 51 L CK-MB (CK-2) 0.92 Troponin I 0.012 NT-Pro-B Natriuret Pep 231 02/27/18 02/27/18 02/28/18 18:25 18:25 00:50 Creatine Kinase 51 L 50 L CK-MB (CK-2) 0.69 Troponin I 0.012 NT-Pro-B Natriuret Pep 02/28/18 00:50 Creatine Kinase CK-MB (CK-2) 0.61 Troponin I < 0.012 NT-Pro-B Natriuret Pep Impressions: KUB X-Ray 02/27/18 00:00 IMPRESSION: Nasogastric tube tip and side port in the stomach Abdomen/Pelvis CT 02/28/18 00:00 IMPRESSION: Right hilar mass with precarinal and anterior mediastinal masses suspicious for malignancy. There is also nodular soft tissue pleural based in the upper lobe suspicious for tumor. Possible metastatic lesion in the left lung. Large effusion with marked compressive atelectasis of the right lung. Possible liver metastases. Chest CT 02/28/18 00:00 IMPRESSION: Right hilar mass with precarinal and anterior mediastinal masses suspicious for malignancy. There is also nodular soft tissue pleural based in the upper lobe suspicious for tumor. Possible metastatic lesion in the left lung. Large effusion with marked compressive atelectasis of the right lung. Possible liver metastases. Abdomen Ultrasound 03/01/18 00:00 IMPRESSION: Limited examination. Diffusely nodular appearance of the liver similar to that seen on comparison CT imaging. Given additional findings demonstrated on CT, favor metastatic neoplasm. Thoracentesis Ultrasound 03/03/18 08:17 IMPRESSION: SUCCESSFUL THORACENTESIS USING ULTRASOUND GUIDANCE. Chest X-Ray 03/04/18 06:00 IMPRESSION: No significant change. Assessment & Plan - Diagnosis (1) Acute respiratory failure with hypoxia and hypercarbia Is this a current diagnosis for this admission?: Yes Plan: Currently intubated. Pulmonology is optimistic that he will be able to be extubated. Family is trying to get here, hopefully this afternoon. Once they are here his is okay with us extubating him. (2) Metabolic encephalopathy Is this a current diagnosis for this admission?: Yes Plan: This seems to have resolved. Will be able to tell further once he is extubated but he answers yes and no questions appropriately. (3) Acute blood loss anemia Is this a current diagnosis for this admission?: Yes Plan: Currently stable, thought to be due to bleeding from the large mass in the right side of his chest. 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 CT scan of the chest abdomen and pelvis showed the tumor described in the chest along with a necrotic lymph node in the mediastinum, and it showed a nodular appearance of the liver. An ultrasound of the liver was done and it was positive for nodular appearance consistent with metastatic disease. Oncology has been consulted. - Time Time Spent with patient: 35 or more minutes Total Critical Time (Minutes): 35 Medications reviewed and adjusted accordingly: Yes
--- NOTE | 2018-03-04 19:52 | PDOC PROGRESS REPORT ---
Subjective Progress Note for:: 03/04/18 Subjective:: Intubated and sedated Reason For Visit: GIB,COPD,ACUTE ON CHRONIC RESP FAILURE Physical Exam Vital Signs: Temp Pulse Resp BP Pulse Ox 97.9 F 55 L 18 117/50 L 96 03/04/18 06:31 03/04/18 02:10 03/04/18 06:31 03/04/18 06:31 03/04/18 06:31 Intake & Output 03/03/18 03/04/18 03/05/18 06:59 06:59 06:59 Intake Total 2102 3174 Output Total 1570 1805 Balance 532 1369 Weight 89.4 kg 89.9 kg General appearance: PRESENT: no acute distress, cooperative, disheveled Head exam: PRESENT: atraumatic, normocephalic Eye exam: PRESENT: conjunctiva pale, EOMI. ABSENT: nystagmus, periorbital swelling, scleral icterus Mouth exam: PRESENT: dry mucosa, neck supple, tongue midline, other - ET tube Neck exam: ABSENT: carotid bruit, JVD, lymphadenopathy, thyromegaly, tracheal deviation, tracheostomy Respiratory exam: PRESENT: decreased breath sounds, prolonged expiratory phas, rales, rhonchi, unlabored, wheezes. ABSENT: retraction, stridor, tachypnea Cardiovascular exam: PRESENT: RRR, +S1, +S2 Pulses: PRESENT: normal radial pulses GI/Abdominal exam: PRESENT: hypoactive bowel sounds, soft Extremities exam: ABSENT: calf tenderness, clubbing, joint swelling, pedal edema Musculoskeletal exam: ABSENT: deformity, dislocation Neurological exam: PRESENT: awake, oriented to person Psychiatric exam: PRESENT: flat affect Skin exam: PRESENT: dry, warm Results Laboratory Results: 03/04/18 03:49 03/04/18 03:49 03/03/18 03/03/18 03/04/18 09:33 10:14 03:49 WBC 8.0 RBC 3.15 L Hgb 9.0 L Hct 27.2 L MCV 87 MCH 28.5 MCHC 32.9 RDW 17.4 H Plt Count 182 Seg Neutrophils % Not Reportable Lymphocytes % Not Reportable Monocytes % Not Reportable Eosinophils % Not Reportable Basophils % Not Reportable Absolute Neutrophils Not Reportable Absolute Lymphocytes Not Reportable Absolute Monocytes Not Reportable Absolute Eosinophils Not Reportable Absolute Basophils Not Reportable Carbonic Acid HCO3/H2CO3 Ratio ABG pH ABG pCO2 ABG pO2 ABG HCO3 ABG O2 Saturation ABG Base Excess FiO2 Sodium Potassium Chloride Carbon Dioxide Anion Gap BUN Creatinine Est GFR ( Amer) Est GFR (Non-Af Amer) Glucose Calcium Phosphorus Magnesium Total Protein 4.6 L Fluid Type PLEURAL Fluid Source Fluid Color RED Fluid Appearance TURBID Fluid Viscosity LIQUID Fluid WBC 789 Fluid RBC [id number] 03/04/18 03/04/18 03:49 04:20 WBC RBC Hgb Hct MCV MCH MCHC RDW Plt Count Seg Neutrophils % Lymphocytes % Monocytes % Eosinophils % Basophils % Absolute Neutrophils Absolute Lymphocytes Absolute Monocytes Absolute Eosinophils Absolute Basophils Carbonic Acid 1.07 HCO3/H2CO3 Ratio 21:1 ABG pH 7.43 ABG pCO2 35.4 ABG pO2 61.3 L ABG HCO3 22.8 ABG O2 Saturation 92.3 L ABG Base Excess -1.2 FiO2 25% Sodium 144.8 Potassium 4.8 Chloride 112 H Carbon Dioxide 26 Anion Gap 7 BUN 26 H Creatinine 1.37 H Est GFR ( Amer) > 60 Est GFR (Non-Af Amer) 51 L Glucose 160 H Calcium 8.8 Phosphorus 3.5 Magnesium 2.6 H Total Protein Fluid Type Fluid Source Fluid Color Fluid Appearance Fluid Viscosity Fluid WBC Fluid RBC 02/26/18 02/27/18 02/27/18 05:35 13:10 13:10 Creatine Kinase 51 L CK-MB (CK-2) 0.92 Troponin I 0.012 NT-Pro-B Natriuret Pep 231 02/27/18 02/27/18 02/28/18 18:25 18:25 00:50 Creatine Kinase 51 L 50 L CK-MB (CK-2) 0.69 Troponin I 0.012 NT-Pro-B Natriuret Pep 02/28/18 00:50 Creatine Kinase CK-MB (CK-2) 0.61 Troponin I < 0.012 NT-Pro-B Natriuret Pep Impressions: KUB X-Ray 02/27/18 00:00 IMPRESSION: Nasogastric tube tip and side port in the stomach Abdomen/Pelvis CT 02/28/18 00:00 IMPRESSION: Right hilar mass with precarinal and anterior mediastinal masses suspicious for malignancy. There is also nodular soft tissue pleural based in the upper lobe suspicious for tumor. Possible metastatic lesion in the left lung. Large effusion with marked compressive atelectasis of the right lung. Possible liver metastases. Chest CT 02/28/18 00:00 IMPRESSION: Right hilar mass with precarinal and anterior mediastinal masses suspicious for malignancy. There is also nodular soft tissue pleural based in the upper lobe suspicious for tumor. Possible metastatic lesion in the left lung. Large effusion with marked compressive atelectasis of the right lung. Possible liver metastases. Abdomen Ultrasound 03/01/18 00:00 IMPRESSION: Limited examination. Diffusely nodular appearance of the liver similar to that seen on comparison CT imaging. Given additional findings demonstrated on CT, favor metastatic neoplasm. Thoracentesis Ultrasound 03/03/18 08:17 IMPRESSION: SUCCESSFUL THORACENTESIS USING ULTRASOUND GUIDANCE. Chest X-Ray 03/04/18 06:00 IMPRESSION: Minimal residual right pleural fluid in the minor fissure Endotracheal tube tip in good positioning Assessment & Plan - Diagnosis (1) Non-small cell cancer of right lung Is this a current diagnosis for this admission?: Yes Plan: metastatic disease CT of chest and abdomen (2) Acute respiratory failure with hypoxia and hypercarbia Is this a current diagnosis for this admission?: Yes Plan: as extubation may be a terminal event awaiting family members (3) COPD (chronic obstructive pulmonary disease) Is this a current diagnosis for this admission?: Yes Plan: stable (4) GI bleed Is this a current diagnosis for this admission?: Yes Plan: Status post EGD Stable thus farp (5) Pleural effusion Is this a current diagnosis for this admission?: Yes Plan: retapped with good results thus far - Time Total Critical Time (Minutes): 50
[2018-03-05] MEDS: IPRATROPIUM/ALBUTEROL 0.5-2.5 MG/3 ML AMPUL NEB SCH ×2 (02:06→08:21)
[2018-03-05] MEDS: POTASSI CL 20 MEQ/D5-1/2NS 1L 1,000 ML IV PRN (03:36)
[2018-03-05 04:25] LABS: ANION GAP 9 (5-19); BLOOD UREA NITROGEN 27 mg/dL (7-20); CARBON DIOXIDE 24 mmol/L (22-30); CHLORIDE 113 mmol/L (98-107); GLUCOSE 141 mg/dL (75-110); POTASSIUM 4.5 mmol/L (3.6-5.0); SODIUM 146.2 mmol/L (137-145)
[2018-03-05] MEDS: PROPOFOL 1,000 MG/100 ML INFUS..BTL IV PRN (04:26)
[2018-03-05 04:40] LABS: ABSOLUTE LYMPHOCYTES (AUTO) 0.5 10^3/uL (0.5-4.7); ABSOLUTE MONOCYTES (AUTO) 0.4 10^3/uL (0.1-1.4); ABSOLUTE NEUT (AUTO) 8.7 10^3/uL (1.7-8.2); BASOPHILS % (AUTO) 0.1 % (0-2); HEMATOCRIT 29.3 % (37.9-51.0); HEMOGLOBIN 9.7 g/dL (13.5-17.0); MEAN CORPUSCULAR HEMOGLOBIN 28.5 pg (27.0-33.4); MEAN CORPUSCULAR HGB CONC 33.3 g/dL (32.0-36.0); MEAN CORPUSCULAR VOLUME 86 fl (80-97); MONOCYTES % (AUTO) 4.5 % (3-13); PLATELET COUNT 229 10^3/uL (150-450); RED BLOOD COUNT 3.41 10^6/uL (4.35-5.55); RED CELL DISTRIBUTION WIDTH 17.1 % (11.5-14.0); SEGMENTED NEUTROPHILS % (AUTO) 90.4 % (42-78); TOTAL CELLS COUNTED % (AUTO) 100 %; WHITE BLOOD COUNT 9.7 10^3/uL (4.0-10.5)
[2018-03-05 04:57] LABS: ARTERIAL BLOOD BASE EXCESS -0.6 mmol/L; ARTERIAL BLOOD FIO2 25%; ARTERIAL BLOOD H2CO3 1.13 mmol/L (1.05-1.35); ARTERIAL BLOOD HCO3 23.7 mmol/L (20-26); ARTERIAL BLOOD PCO2 37.5 mmHg (35-45); ARTERIAL BLOOD PH 7.42 (7.35-7.45); ARTERIAL BLOOD PO2 49.6 mmHg (80-100); ARTERIAL BLOOD TOTAL CO2 24.8 mmol/L (23-27)
[2018-03-05] MEDS: METHYLPREDNISOLONE INJ 40 MG/1 ML SDV IV SCH (05:01)
[2018-03-05] MEDS: PIPERACILLIN SODIUM/TAZOBACTAM 3.375 GM in NORMAL SALINE 100 ML IV SCH (05:02)
--- NOTE | 2018-03-05 07:48 | RADIOLOGY REPORT (SQ) ---
EXAM DESCRIPTION: CHEST SINGLE VIEW COMPLETED DATE/TIME: 03/05/2018 7:05 am REASON FOR STUDY: pna/resp fail COMPARISON: CT chest 03/01/2018 Chest films 03/03/2018, 03/04/2018 EXAM PARAMETERS: NUMBER OF VIEWS: One view. TECHNIQUE: Single frontal radiographic view of the chest acquired. RADIATION DOSE: NA LIMITATIONS: None. FINDINGS: LUNGS AND PLEURA: Minimal stable residual right pleural effusion along the minor fissure a nd upper lateral hemithorax. Minimal bibasilar atelectasis. No alveolar edema. No pneumothorax. MEDIASTINUM AND HILAR STRUCTURES: No masses. Contour normal. HEART AND VASCULAR STRUCTURES: Heart normal in size. Normal vasculature. BONES: No acute findings. HARDWARE: Endotracheal tube tip 4 cm above the tavon. No nasogastric tube identified. OTHER: No other significant finding. IMPRESSION: Stable appearance of the chest TECHNICAL DOCUMENTATION: JOB ID: [id number] [employer]- All Rights Reserved Reading location - IP/workstation name: [email or web address]
[2018-03-05] MEDS: CYANOCOBALAMIN (VITAMIN B-12) INJ 1000 MCG/1 ML VIAL IM SCH (10:04)
[2018-03-05] MEDS: ENOXAPARIN SODIUM INJ 40 MG/0.4 ML DISP.SYRIN SUBCUT SCH (10:04)
[2018-03-05] MEDS ORDERED: MORPHINE SULFATE 10 MG/ML INJ ONE (10:06)
[2018-03-05] MEDS ORDERED: LORAZEPAM INJ 2 MG/1 ML VIAL ONE (10:06)
[2018-03-05] MEDS ORDERED: DEXAMETHASONE SOD PHOSPHATE INJ 4 MG/1 ML VIAL IV ONE (10:30)
[2018-03-05] MEDS ORDERED: LORAZEPAM INJ 2 MG/1 ML VIAL IV PRN (10:49)
[2018-03-05 10:50] VITALS: BP 115/56
[2018-03-05] MEDS ORDERED: MORPHINE SULFATE 10 MG/ML INJ IV PRN (10:50)
--- NOTE | 2018-03-05 11:22 | PDOC PROGRESS REPORT ---
Subjective Progress Note for:: 03/05/18 Subjective:: extubate Reason For Visit: GIB,COPD,ACUTE ON CHRONIC RESP FAILURE Physical Exam Vital Signs: Temp Pulse Resp BP Pulse Ox 97.0 F 58 L 20 110/54 L 94 03/05/18 06:05 03/05/18 02:10 03/05/18 06:05 03/05/18 06:01 03/05/18 06:05 Intake & Output 03/04/18 03/05/18 03/06/18 06:59 06:59 06:59 Intake Total 3174 2780 Output Total 1805 2310 Balance 1369 470 Weight 89.9 kg 90.3 kg General appearance: PRESENT: no acute distress, disheveled Head exam: PRESENT: atraumatic, normocephalic Eye exam: PRESENT: conjunctiva pale, EOMI Mouth exam: PRESENT: dry mucosa, neck supple, tongue midline, other - ET tube Respiratory exam: PRESENT: decreased breath sounds, prolonged expiratory phas, rhonchi. ABSENT: rales, retraction, stridor Cardiovascular exam: PRESENT: bradycardia, RRR, +S1, +S2 Pulses: PRESENT: normal radial pulses GI/Abdominal exam: PRESENT: normal bowel sounds, soft Extremities exam: ABSENT: calf tenderness, clubbing, joint swelling Musculoskeletal exam: ABSENT: deformity, dislocation Neurological exam: PRESENT: awake, oriented to person. ABSENT: oriented to place, oriented to time, oriented to situation Skin exam: PRESENT: dry, warm Results Laboratory Results: 03/05/18 03:49 03/05/18 03:49 03/03/18 03/03/18 03/03/18 10:14 10:14 10:14 WBC RBC Hgb Hct MCV MCH MCHC RDW Plt Count Seg Neutrophils % Lymphocytes % Monocytes % Eosinophils % Basophils % Absolute Neutrophils Absolute Lymphocytes Absolute Monocytes Absolute Eosinophils Absolute Basophils Carbonic Acid HCO3/H2CO3 Ratio ABG pH ABG pCO2 ABG pO2 ABG HCO3 ABG O2 Saturation ABG Base Excess FiO2 Sodium Potassium Chloride Carbon Dioxide Anion Gap BUN Creatinine Est GFR ( Amer) Est GFR (Non-Af Amer) Glucose Calcium Magnesium Fluid Glucose 93 Fluid Total Protein 10.6 Fluid LDH Fluid Amylase 38 03/03/18 03/05/18 03/05/18 10:14 03:49 03:49 WBC 9.7 RBC 3.41 L Hgb 9.7 L Hct 29.3 L MCV 86 MCH 28.5 MCHC 33.3 RDW 17.1 H Plt Count 229 Seg Neutrophils % 90.4 H Lymphocytes % 5.0 L Monocytes % 4.5 Eosinophils % 0.0 Basophils % 0.1 Absolute Neutrophils 8.7 H Absolute Lymphocytes 0.5 Absolute Monocytes 0.4 Absolute Eosinophils 0.0 Absolute Basophils 0.0 Carbonic Acid HCO3/H2CO3 Ratio ABG pH ABG pCO2 ABG pO2 ABG HCO3 ABG O2 Saturation ABG Base Excess FiO2 Sodium 146.2 H Potassium 4.5 Chloride 113 H Carbon Dioxide 24 Anion Gap 9 BUN 27 H Creatinine 1.52 H Est GFR ( Amer) 55 L Est GFR (Non-Af Amer) 45 L Glucose 141 H Calcium 9.0 Magnesium 2.7 H Fluid Glucose Fluid Total Protein Fluid LDH 260 Fluid Amylase 03/05/18 04:45 WBC RBC Hgb Hct MCV MCH MCHC RDW Plt Count Seg Neutrophils % Lymphocytes % Monocytes % Eosinophils % Basophils % Absolute Neutrophils Absolute Lymphocytes Absolute Monocytes Absolute Eosinophils Absolute Basophils Carbonic Acid 1.13 HCO3/H2CO3 Ratio 20:1 ABG pH 7.42 ABG pCO2 37.5 ABG pO2 49.6 L ABG HCO3 23.7 ABG O2 Saturation 86.0 L ABG Base Excess -0.6 FiO2 25% Sodium Potassium Chloride Carbon Dioxide Anion Gap BUN Creatinine Est GFR ( Amer) Est GFR (Non-Af Amer) Glucose Calcium Magnesium Fluid Glucose Fluid Total Protein Fluid LDH Fluid Amylase 02/27/18 07:30 Tracheal Aspirate Gram Stain - Final 02/27/18 07:30 Tracheal Aspirate Sputum Culture - Final Streptococcus Pneumoniae Normal Adrienne 02/26/18 02/27/18 02/27/18 05:35 13:10 13:10 Creatine Kinase 51 L CK-MB (CK-2) 0.92 Troponin I 0.012 NT-Pro-B Natriuret Pep 231 02/27/18 02/27/18 02/28/18 18:25 18:25 00:50 Creatine Kinase 51 L 50 L CK-MB (CK-2) 0.69 Troponin I 0.012 NT-Pro-B Natriuret Pep 02/28/18 00:50 Creatine Kinase CK-MB (CK-2) 0.61 Troponin I < 0.012 NT-Pro-B Natriuret Pep Impressions: KUB X-Ray 02/27/18 00:00 IMPRESSION: Nasogastric tube tip and side port in the stomach Abdomen/Pelvis CT 02/28/18 00:00 IMPRESSION: Right hilar mass with precarinal and anterior mediastinal masses suspicious for malignancy. There is also nodular soft tissue pleural based in the upper lobe suspicious for tumor. Possible metastatic lesion in the left lung. Large effusion with marked compressive atelectasis of the right lung. Possible liver metastases. Chest CT 02/28/18 00:00 IMPRESSION: Right hilar mass with precarinal and anterior mediastinal masses suspicious for malignancy. There is also nodular soft tissue pleural based in the upper lobe suspicious for tumor. Possible metastatic lesion in the left lung. Large effusion with marked compressive atelectasis of the right lung. Possible liver metastases. Abdomen Ultrasound 03/01/18 00:00 IMPRESSION: Limited examination. Diffusely nodular appearance of the liver similar to that seen on comparison CT imaging. Given additional findings demonstrated on CT, favor metastatic neoplasm. Thoracentesis Ultrasound 03/03/18 08:17 IMPRESSION: SUCCESSFUL THORACENTESIS USING ULTRASOUND GUIDANCE. Chest X-Ray 03/05/18 06:00 IMPRESSION: Stable appearance of the chest Assessment & Plan - Diagnosis (1) Non-small cell cancer of right lung Is this a current diagnosis for this admission?: Yes Plan: metastatic disease CT of chest and abdomen (2) Acute respiratory failure with hypoxia and hypercarbia Is this a current diagnosis for this admission?: Yes Plan: as extubation may be a terminal event awaiting family members (3) COPD (chronic obstructive pulmonary disease) Is this a current diagnosis for this admission?: Yes Plan: stable (4) GI bleed Is this a current diagnosis for this admission?: Yes Plan: Status post EGD Stable thus farp (5) Pleural effusion Is this a current diagnosis for this admission?: Yes Plan: retapped with good results thus far - Time Total Critical Time (Minutes): 70
--- NOTE | 2018-03-05 14:57 | Death Summary ---
Summary Date : 03/05/18 Time of :: 13:03 Autopsy: No Resuscitation Status: Comfort Measures Only Consulting Provider: Dr. Montes. Dr. Gonzalez. Wheel [employer] Operator - Final Diagnosis (1) Metastatic lung cancer (metastasis from lung to other site) Is this a current diagnosis for this admission?: Yes (2) Acute blood loss anemia Is this a current diagnosis for this admission?: Yes (3) Acute respiratory failure with hypoxia and hypercarbia Is this a current diagnosis for this admission?: Yes (4) Lung cancer Is this a current diagnosis for this admission?: Yes (5) Pleural effusion Is this a current diagnosis for this admission?: Yes Hospital Course:: Patient was admitted with anemia and transfused with 2 units packed red blood cells initially on admission he ultimately went into acute respiratory failure with hypoxia and hypercarbia and subsequently was intubated Consultation was done by GI with EGD which revealed gastric polyp and subsequent 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 He had a large pleural effusion with compressive atelectasis of the right lung which ultimately required thoracentesis. He also had possible liver metastasis on CT scan. Patient's widespread metastases and poor response to current management family decided to terminally extubate patient which was done this morning. Patient at 1303 on March 05 with family present
== END 2018-03-05 14:00 | disposition expired | DRG 166 ==
LOC: ER 19:31 → EH 23:14 → ICU 02-26 00:38
PROVIDERS: ADMIT Internal Medicine; ATTEND Internal Medicine
PROC: 30233N1 Transfusion of Nonautologous Red Blood Cells into Peripheral Vein, Percutaneous Approach (ICD-10-PCS; 2018-02-25)
PROC: 5A1955Z Respiratory Ventilation, Greater than 96 Consecutive Hours (ICD-10-PCS; 2018-02-25)
PROC: 30233N1 Transfusion of Nonautologous Red Blood Cells into Peripheral Vein, Percutaneous Approach (ICD-10-PCS; 2018-02-26)
PROC: 0D9670Z Drainage of Stomach with Drainage Device, Via Natural or Artificial Opening (ICD-10-PCS; 2018-02-27)
PROC: 0BH17EZ Insertion of Endotracheal Airway into Trachea, Via Natural or Artificial Opening (ICD-10-PCS; 2018-02-27)
PROC: 0BDC8ZX Extraction of Right Upper Lung Lobe, Via Natural or Artificial Opening Endoscopic, Diagnostic (ICD-10-PCS; principal; 2018-02-27 14:00)
PROC: 0BBC8ZX Excision of Right Upper Lung Lobe, Via Natural or Artificial Opening Endoscopic, Diagnostic (ICD-10-PCS; 2018-02-27 14:00)
PROC: 0DB68ZX Excision of Stomach, Via Natural or Artificial Opening Endoscopic, Diagnostic (ICD-10-PCS; 2018-02-27 14:00)
PROC: 0W993ZZ Drainage of Right Pleural Cavity, Percutaneous Approach (ICD-10-PCS; 2018-03-03)
DX: C34.11 Malignant neoplasm of upper lobe, right bronchus or lung (principal); J96.01 Acute respiratory failure with hypoxia; G93.41 Metabolic encephalopathy; D62 Acute posthemorrhagic anemia; J90 Pleural effusion, not elsewhere classified; C78.7 Secondary malignant neoplasm of liver and intrahepatic bile duct; K92.2 Gastrointestinal hemorrhage, unspecified; E11.9 Type 2 diabetes mellitus without complications; K31.7 Polyp of stomach and duodenum; I25.10 Atherosclerotic heart disease of native coronary artery without angina pectoris; I25.2 Old myocardial infarction; Z85.528 Personal history of other malignant neoplasm of kidney; Z95.1 Presence of aortocoronary bypass graft; Z79.82 Long term (current) use of aspirin; Z79.899 Other long term (current) drug therapy; Z88.2 Allergy status to sulfonamides; Z87.891 Personal history of nicotine dependence
CPT/HCPCS: 31500; 31624; 31625; 31629; 32555; 36415; 36430; 43239; 71045; 71046; 71260; 74018; 74177; 76705; 80048; 80053; 81001; 82150; 82272; 82550; 82553; 82607; 82728; 82746; 82803; 82945; 82962; 83540; 83550; 83615; 83735; 83880; 84100; 84155; 84157; 84484; 85025; 85045; 85610; 85730; 86850; 86900; 86901; 86920; 86922; 87015; 87040; 87070; 87075; 87077; 87086; 87101; 87116; 87186; 87205; 87206; 88104; 88305; 88342; 89050; 93005; 93010; 94002; 94003; 94660; 96374; 99291; J0171; J0330; J1100; J1200; J1610; J1650; J2060; J2250; J2270; J2310; J2405; J2543; J2704; J2920; J2930; J3010; J3420; J3430; J3480; J3490; J7060; J7620; P9016; S0164